=== PATIENT | female | born 1945 | race Caucasian/White ===

== ENCOUNTER → 2019-12-08 11:09 | Outpatient (BNVA) | payer MEDICARE, OTHER, SELFPAY | PROVIDERS: Family Provider Family Medicine; PCP Family Medicine; Visit Provider Nurse Practitioner Family | DX: N30.80 Other cystitis without hematuria (principal) | CPT/HCPCS: 80053; 81001; 87077; 87086; 87186 ==

== ENCOUNTER 2020-06-07 08:21 | Outpatient (CLI) | payer MEDICARE, OTHER, SELFPAY ==
--- NOTE | 2020-06-07 08:30 | XR_ITS ---
WS: [id number] KUB, AP view, 06/07/2020 Clinical Data: N20.1 - Calculus of ureter Comparison: KUB, 04/22/2016. Findings: No abnormal intraabdominal masses or calcifications are seen. There is no dilatated small bowel or ev idence of obstruction. Fecal material obscures detail over the kidneys and in the pelvis. There are clips in the right upper quadrant from a cholecystectomy. The patient has had lower pelvic surgery with surgical clips. XR/XR KUB [id number] Impression: Negative KUB.
== END 2020-06-07 08:22 | disposition home or self-care (01) ==
PROVIDERS: PCP Family Medicine; Visit Provider Urology
DX: N20.1 Calculus of ureter (principal)
CPT/HCPCS: 74018

== ENCOUNTER 2020-08-07 10:40 | Outpatient (CLI) | payer MEDICARE, OTHER, SELFPAY ==
[2020-08-07 11:06] LABS: Basophils # 0.1 10^3/uL (0.0-0.1); Basophils % 0.9 %; Eosinophils # 0.7 10^3/uL (0.0-0.8); Eosinophils % 7.8 %; Hematocrit 43.4 % (37.0-47.0); Hemoglobin 14.5 g/dL (11.5-15.3); Lymphocytes # 1.8 10^3/uL (0.8-4.8); Lymphocytes % 19.9 %; Mean Corpuscular HGB Conc 33.4 g/dL (30.0-36.0); Mean Corpuscular Hemoglobin 29.2 pg (28.0-34.0); Mean Corpuscular Volume 87.5 fL (81-99); Mean Platelet Volume 10.2 fL (7.4-10.4); Monocytes # 0.5 10^3/uL (0.2-0.9); Monocytes % 5.9 %; Neutrophils # 5.97 10^3/uL (1.8-7.7); Nucleated Red Blood Cells % 0 %; Platelet Count 304 10^3/cmm (130-400); Red Blood Count 4.96 10^6/uL (4.1-5.3); Red Cell Distribution Width 14.1 % (12.1-15.1); White Blood Count 9.2 10^3/uL (4.0-10.0)
[2020-08-07 11:25] LABS: Alanine Aminotransferase 28 U/L (0-33); Albumin Level 4.3 g/dL (3.5-5.2); Alkaline Phosphatase 69 IU/L (35-105); Anion Gap 14.7 (5-19); Aspartate Amino Transferase 18 U/L (0-32); Blood Urea Nitrogen 17 mg/dL (8-23); Calcium 8.5 mg/dL (8.5-10.5); Carbon Dioxide 26 mmol/L (22-29); Chloride 100 mmol/L (98-107); Globulin 2.9 g/dL (1.3-4.6); Glucose 142 mg/dL (65-115); Osmolality Calculated 288 mOsm/kg (285-295); Potassium 3.7 mmol/L (3.5-5.1); Sodium 137 mmol/L (136-145); Total Bilirubin 0.7 mg/dL (0.15-1.2); Total Protein 7.2 g/dL (6.6-8.7)
== END 2020-08-07 10:41 | disposition home or self-care (01) ==
LOC: LAB 10:44
PROVIDERS: PCP Family Medicine; Visit Provider Family Medicine
DX: D72.829 Elevated white blood cell count, unspecified (principal); I10 Essential (primary) hypertension
CPT/HCPCS: 36415; 80053; 85025

== ENCOUNTER 2020-10-03 09:29 | Outpatient (CLI) | payer MEDICARE, OTHER, SELFPAY ==
--- NOTE | 2020-10-03 09:30 | XR_ITS ---
WS: [id number] KUB, AP view, 10/03/2020 Clinical Data: UROLITHIASIS Comparison: KUB, 06/07/2020 Findings: No abnormal intraabdominal masses or calcifications are seen. There is no dilatated small bowel or ev idence of obstruction. There are phleboliths in the true pelvis. Colon gas and fecal material obscure detail over the kidney s. There are clips in the right upper quadrant from a cholecystectomy. There are surgical clips in th e pelvis from a hernia repair. XR/XR KUB [id number] Impression: Negative KUB.
== END 2020-10-03 09:30 | disposition home or self-care (01) ==
PROVIDERS: PCP Family Medicine; Visit Provider Urology
DX: N20.2 Calculus of kidney with calculus of ureter (principal)
CPT/HCPCS: 74018; 81003; 87077; 87086; 87184

== ENCOUNTER 2020-12-24 06:19 | Emergency (ER) | payer MEDICARE, OTHER, SELFPAY ==
[2020-12-24 06:24] VITALS: BP 162/78; PULSE 69; RESP 18; TEMP 36.9; O2SAT 97; BMI 35.3
[2020-12-24 07:01] VITALS: BP 154/57; PULSE 70; RESP 18; TEMP 36.8; O2SAT 95
--- NOTE | 2020-12-24 07:27 | ED_ITS ---
HPI - GI Bleed General: Chief complaint: GI Bleed Stated complaint: BLACK STOOLS Time Seen by Provider: 12/24/20 06:24 Source: patient Mode of arrival: ambulatory Limitations: no limitations History of Present Illness: HPI Narrative: 75 year old with greenish / black stools for 1 week, becoming more watery over the last few days, No fever hx of diverticulosis Had similar symptoms last year and was treated for an infection No sick contacts or recent travel not on anticoagulation. No rectal pain. MD complaint: melena Onset (ago): day(s) Pain Consistency: intermittent Severity: moderate Context: history of GI bleed Associated symptoms: Reports abdominal pain, poor appetite and other (diarrrhea); Denies chills, easy bruising, fever(s), headache(s), nausea or rash Treatments Prior to Arrival: none Review of Systems General: Reports: 10 or more systems reviewed and unremarkable except in HPI and below Const: Reports: change in appetite and fatigue; Denies: fever(s), chills or body aches ENMT: Denies: throat pain, uvular edema or odynophagia Card: Denies: chest pain, palpitations or irregular heart rhythm Resp: Denies: dyspnea or productive cough GI: Reports: abdominal pain, heartburn, diarrhea, GI cramping and melena; Denies: nausea, pain on defecation or rectal pain : Denies: flank pain, difficulty voiding or dysuria Musc: Denies: neck pain, back pain or extremity pain Skin/Breast: Denies: rash or pruritus Neuro: Denies: headache(s) or numbness in extremities Javier/Lymph: Denies: easy bruising or easy bleeding PFSH ED PFSH: Medical History Cystitis cystica Diabetes Left ureteral calculus Urolithiasis Surgical History Hx of appendectomy Hx of cholecystectomy Hx of hysterectomy Hx of neck surgery Status post extracorporeal shock wave therapy Social History Smoking and tobacco status: never smoked Alcohol intake: never Adopted: Yes Caregiver/support person: No Lives independently: No Household members: spouse Marital status: Current occupational status: retired History of recent travel: No Current gender identity: Female Physical Exam Const: COMMON NORMALS: no acute distress, patient oriented x3, healthy appearing, alert and well nourished GENERAL APPEARANCE: cooperative, comfortable, well kempt and well developed; not in distress and not anxious ORIENTATION/CONSCIOUSNESS: Yes oriented to person, Yes oriented to place and Yes oriented to time HENMT: COMMON NORMALS: normocephalic and atraumatic HEAD & SCALP: normocephalic and atraumatic FACE & SINUS: normal facial exam and face symmetric THROAT: no uvular edema Eye: COMMON NORMALS: Equal, round and reactive pupils present, EOMs intact bilaterally, conjunctivae normal and no scleral icterus CONJUNCTIVA: Yes conjunctivae normal PUPIL: Yes Equal, round and reactive pupils present Lymph: LYMPHATIC: no lymphadenopathy noted Resp: COMMON NORMALS: normal respiratory effort, No retractions and No use of accessory muscles EFFORT & INSPECTION: Yes able to speak in complete sentences GI: COMMON NORMALS: Normal to inspection, nondistended, normoactive bowel sounds present, Soft to palpation and non-tender AUSCULTATION: Yes Hyperactive bowel sounds present PALPATION: Yes Soft to palpation : COMMON NORMALS: Yes no CVA tenderness and Yes normal external appearance BLADDER/KIDNEY EXAM: Yes no CVA tenderness Back/Pelvis: COMMON NORMALS: no CVA tenderness Extremity: COMMON NORMALS: normal to inspection, full ROM and capillary refill normal Neuro: COMMON NORMALS: patient oriented x3 SENSORIUM/ORIENTATION: Yes alert, Yes oriented to person, Yes oriented to place and Yes oriented to time Psych: APPEARANCE: Yes well kempt Skin: COMMON NORMALS: no rashes or lesions noted, turgor normal and no jaundice GENERAL SKIN EXAM: no rashes or lesions noted and turgor normal Course Vital Signs: Vital signs: Vital Signs Temperature 98.7 F 12/24/20 09:22 Pulse Rate 72 12/24/20 09:22 Respiratory Rate 18 12/24/20 09:22 Blood Pressure 147/68 12/24/20 09:22 Pulse Oximetry 96 12/24/20 09:22 MDM - GI Bleed MDM Narrative: Medical decision making narrative: 75 year old with diarrhea, Stool sample visualized- green, watery, not melenic, occult blood positive GI panel sent hx of diverticulitisl; will treat empirically with Augmentin No significant tenderness on exam; labs and vitals otherwise stable, so no further imaging is necessary at this time. UA is also suggestive of acute infection- sent for culture hgb stable at 13.9; Followup with PCP in 2 days return precautions. Differential Diagnosis: GI bleed differential diagnosis: Likely infectious diarrhea, gastritis, Upper gastrointestinal hemorrhage, Lower gastrointestinal hemorrhage, hematochezia and melena Medical Records: Attestation: I reviewed the patient's medical records. Lab Data: Attestation: I reviewed the patient's lab results. Labs: Lab Results 12/24/20 12/24/20 12/24/20 07:49 07:49 07:49 WBC 10.9 10^3/uL H 10 ^3/uL (4.0-10.0) RBC 4.81 10^6/uL 10^6 /uL (4.1-5.3) Hgb 13.9 g/dL g/dL (11.5-15.3) Hct 43.0 % % (37.0-47.0) MCV 89.4 fl fl (81-99) MCH 28.9 pg pg (28.0-34.0) MCHC 32.3 g/dL g/dL (30.0-36.0) RDW 13.3 % % (12.1-15.1) Plt Count 366 10^3/cmm 10^3 /cmm (130-400) MPV 10.3 fL fL (7.4-10.4) Neut % (Auto) 73.2 % % Lymph % (Auto) 11.9 % % Mellette % (Auto) 5.8 % % Eos % (Auto) 8.1 % % Baso % (Auto) 0.6 % % Neut # (Auto) 8.00 10^3/uL H 10 ^3/uL (1.8-7.7) Lymph # (Auto) 1.3 10^3/uL 10^3/ uL (0.8-4.8) Mellette # (Auto) 0.6 10^3/uL 10^3/ uL (0.2-0.9) Eos # (Auto) 0.9 10^3/uL H 10^ 3/uL (0.0-0.8) Baso # (Auto) 0.1 10^3/uL 10^3/ uL (0.0-0.1) Nucleated RBC % (a uto) 0 % % Nucleated RBCs # 0.0 /100WBC /100W BC PT 13.40 SECONDS SEC ONDS (12.1-14.9) INR 0.99 (0.8-1.2) Sodium 142 mmol/L mmol/L (136-145) Potassium 3.4 mmol/L L mmol /L (3.5-5.1) Chloride 103 mmol/L mmol/L (98-107) Carbon Dioxide 28 mmol/L mmol/L (22-29) Anion Gap 14.4 (5-19) BUN 18 mg/dL mg/dL (8-23) Creatinine 0.4 mg/dL L mg/dL (0.5-0.9) GFR Calculation Not Reportable Glucose 188 mg/dL H mg/dL (65-115) Calculated Osmolal ity 301 mOsm/kg H mOs m/kg (285-295) Lactic Acid Calcium 9.0 mg/dL mg/dL (8.5-10.5) Total Bilirubin 0.5 mg/dL mg/dL (0.15-1.2) AST 21 U/L U/L (0-32) ALT 29 U/L U/L (0-33) Alkaline Phosphata se 66 IU/L IU/L (35-105) Total Protein 6.8 g/dL g/dL (6.6-8.7) Albumin 4.1 g/dL g/dL (3.5-5.2) Globulin 2.7 g/dL g/dL (1.3-4.6) Urine Color Urine Appearance Urine pH Ur Specific Gravit y Urine Protein Urine Glucose (UA) Urine Ketones Urine Blood Urine Nitrate Urine Bilirubin Urine Urobilinogen Ur Leukocyte Lori ase Urine RBC Urine WBC Ur Squamous Epith Cells Amorphous Sediment Urine Bacteria Urine Mucus 12/24/20 12/24/20 07:49 08:30 WBC RBC Hgb Hct MCV MCH MCHC RDW Plt Count MPV Neut % (Auto) Lymph % (Auto) Mellette % (Auto) Eos % (Auto) Baso % (Auto) Neut # (Auto) Lymph # (Auto) Mellette # (Auto) Eos # (Auto) Baso # (Auto) Nucleated RBC % (a uto) Nucleated RBCs # PT INR Sodium Potassium Chloride Carbon Dioxide Anion Gap BUN Creatinine GFR Calculation Glucose Calculated Osmolal ity Lactic Acid 1.4 mmol/L mmol/L (0.5-2.2) Calcium Total Bilirubin AST ALT Alkaline Phosphata se Total Protein Albumin Globulin Urine Color Yellow (Yellow) Urine Appearance Hazy A (CLEAR) Urine pH 6 (5-7) Ur Specific Gravit y 1.020 (1.005-1.030) Urine Protein Neg (Negative) Urine Glucose (UA) Norm (Normal) Urine Ketones Negative (Negative) Urine Blood 3+ H (Negative) Urine Nitrate Positive H (Negative) Urine Bilirubin Neg (Negative) Urine Urobilinogen Norm mg/dL mg/dL (Negative) Ur Leukocyte Lori ase 1+ H (Negative) Urine RBC 25-40 /hpf H /hpf (0-2) Urine WBC 25-40 /hpf H /hpf (0-5) Ur Squamous Epith Cells Rare /hpf /hpf (0-5) Amorphous Sediment Not Reportable Urine Bacteria 4+ /hpf H /hpf (NONE) Urine Mucus 1+ /hpf /hpf Discharge Plan Discharge Patient Disposition: Home Clinical Impression: Colitis, acute, Occult blood positive stool, History of diverticulosis Diarrhea Qualifiers: Diarrhea type: presumed infectious Qualified Code(s): R19.7 - Diarrhea, unspecified Condition: Stable Prescriptions: New Augmentin 875-125 mg tablet 1 tab PO BID 7 Days Qty: 14 RF: 0 No Action furosemide 20 mg tablet 20 mg PO DAILY PRN (Reason: edema) RF: 0 indomethacin 25 mg capsule 25 mg PO BID PRNRF: 0 cyclobenzaprine 10 mg tablet 10 mg PO TID PRNRF: 0 glimepiride 2 mg tablet 2 mg PO DAILY RF: 0 metformin 500 mg tablet 500 mg PO DAILY RF: 0 potassium chloride 10 mEq tablet,ER particles/crystals 10 meq PO DAILY RF: 0 triamterene-hydrochlorothiazid 37.5-25 mg capsule 1 cap PO DAILY RF: 0 Complete Multivitamin Tablet 1 tab PO DAILY RF: 0 levothyroxine 150 mcg capsule 150 mcg PO DAILY RF: 0 gabapentin 300 mg capsule 600 mg PO BID RF: 0 fluticasone propionate [Children's Flonase Allergy Rlf] 50 mcg/actuation spray,suspension 1 spray INTRANASAL DAILY RF: 0 ibuprofen [IBU] 600 mg tablet 600 mg PO DAILY RF: 0 ascorbic acid (vitamin C) 500 mg capsule 1,000 mg PO DAILY RF: 0 methenamine hippurate 1 gram tablet 1 gm PO BID Qty: 180 RF: 3 Discharge Orders: Discharge ED (Routine); Ordered 12/24/20 Ordered By: Kelly Tatum Referrals: Pamela Mclean MD [Primary Care Provider] - Discharge Diet: Advance as tolerated Discharge Activity: Increase activity as tolerated Patient Instructions: Infectious Colitis (ED) Activity Restrictions/Additional Instructions: Drink plenty of fluids, rest, call to schedule follow-up appoint with your primary care doctor in the next 2 to 3 days for recheck. Return immediately to the ER if you develop heavy bleeding, more frequent black stools, dizziness, weakness, fever, worsening abdominal pain, vomiting, or any other concerning changes. 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
[2020-12-24 07:59] LABS: Basophils # 0.1 10^3/uL (0.0-0.1); Basophils % 0.6 %; Eosinophils # 0.9 10^3/uL (0.0-0.8); Eosinophils % 8.1 %; Hemoglobin 13.9 g/dL (11.5-15.3); Lymphocytes # 1.3 10^3/uL (0.8-4.8); Lymphocytes % 11.9 %; Mean Corpuscular HGB Conc 32.3 g/dL (30.0-36.0); Mean Corpuscular Hemoglobin 28.9 pg (28.0-34.0); Mean Corpuscular Volume 89.4 fl (81-99); Mean Platelet Volume 10.3 fL (7.4-10.4); Monocytes # 0.6 10^3/uL (0.2-0.9); Monocytes % 5.8 %; Neutrophils % 73.2 %; Nucleated Red Blood Cells % 0 %; Platelet Count 366 10^3/cmm (130-400); Red Blood Count 4.81 10^6/uL (4.1-5.3); Red Cell Distribution Width 13.3 % (12.1-15.1); White Blood Count 10.9 10^3/uL (4.0-10.0)
[2020-12-24 08:15] VITALS: BP 146/65; PULSE 65; RESP 17; O2SAT 97
[2020-12-24 08:15] LABS: INR 0.99 (0.8-1.2)
[2020-12-24 08:18] LABS: Lactic Sepsis W/Reflex 1.4 mmol/L (0.5-2.2)
[2020-12-24 08:19] LABS: Alanine Aminotransferase 29 U/L (0-33); Albumin Level 4.1 g/dL (3.5-5.2); Alkaline Phosphatase 66 IU/L (35-105); Aspartate Amino Transferase 21 U/L (0-32); Blood Urea Nitrogen 18 mg/dL (8-23); Carbon Dioxide 28 mmol/L (22-29); Chloride 103 mmol/L (98-107); Globulin 2.7 g/dL (1.3-4.6); Glucose 188 mg/dL (65-115); Osmolality Calculated 301 mOsm/kg (285-295); Sodium 142 mmol/L (136-145); Total Bilirubin 0.5 mg/dL (0.15-1.2); Total Protein 6.8 g/dL (6.6-8.7)
[2020-12-24 08:26] LABS: Anion Gap 14.4 (5-19); Potassium 3.4 mmol/L (3.5-5.1)
[2020-12-24 09:04] LABS: Blood Urine 3+ (Negative); Glucose Urine UA Norm (Normal); Ketones Urine Negative (Negative); Protein Urine Neg (Negative); Urine Appearance Hazy (CLEAR); Urine Color Yellow (Yellow); pH Urine 6 (5-7)
[2020-12-24 09:05] LABS: Add Urine Microscopic? YES; Bilirubin Urine Neg (Negative); Leukocyte Esterase Urine 1+ (Negative); Nitrate Urine Positive (Negative); RBC Urine 25-40 /hpf (0-2); Urobilinogen Urine Norm (Negative)
[2020-12-24 09:06] LABS: Add Urine Culture? Yes; Bacteria Urine 4+ /hpf; Mucus Urine 1+ /hpf; Squamous Epithelial Cell Urine RARE /hpf (0-5); WBC Urine 25-40 /hpf (0-5)
[2020-12-24 09:22] VITALS: BP 147/68; PULSE 72; RESP 18; TEMP 37.1; O2SAT 96
== END 2020-12-24 09:25 | disposition home or self-care (01) ==
PROVIDERS: Emergency Provider Family Medicine; PCP Family Medicine
DX: K52.9 Noninfective gastroenteritis and colitis, unspecified (principal); R19.5 Other fecal abnormalities; E11.9 Type 2 diabetes mellitus without complications; Z79.84 Long term (current) use of oral hypoglycemic drugs
CPT/HCPCS: 80053; 81001; 82274; 83605; 85025; 85610; 87077; 87086; 87186; 87506; 99283

== ENCOUNTER 2021-01-18 10:00 | Outpatient (CLI) | payer MEDICARE, OTHER, SELFPAY ==
--- NOTE | 2021-01-18 10:30 | FL_ITS ---
WS: [id number] MODIFIED BARIUM SWALLOW TECHNIQUE: Modified barium swallow with speech therapy using multiple consistencies. FLUOROSCOPY TIME: 1.5 minutes. CLINICAL INFORMATION: Dysphagia COMPARISON: None. FINDINGS: Multiple consistencies utilized. No evidence of aspiration or penetration. No difficulties with bariu m tablet. Prior postoperative changes ACDF C5-C7 with corpectomy. FL/FL barium swallow modifd [id number] IMPRESSION: Normal barium swallow
== END 2021-01-18 10:01 | disposition home or self-care (01) ==
LOC: RAD 10:04
PROVIDERS: PCP Family Medicine; Visit Provider Nurse Practitioner Family
DX: R13.10 Dysphagia, unspecified (principal)
CPT/HCPCS: 74230; 92611

== ENCOUNTER → 2021-02-19 08:16 | Outpatient (BNVA) | payer MEDICARE, OTHER, SELFPAY | PROVIDERS: PCP Family Medicine; Visit Provider Internal Medicine | DX: E11.65 Type 2 diabetes mellitus with hyperglycemia (principal); E11.40 Type 2 diabetes mellitus with diabetic neuropathy, unspecified; E11.21 Type 2 diabetes mellitus with diabetic nephropathy; R19.7 Diarrhea, unspecified; E03.9 Hypothyroidism, unspecified; E16.2 Hypoglycemia, unspecified; R10.9 Unspecified abdominal pain; Z79.84 Long term (current) use of oral hypoglycemic drugs | CPT/HCPCS: 99204 ==

== ENCOUNTER 2021-02-20 11:34 | Outpatient (CLI) | payer MEDICARE, OTHER, SELFPAY ==
--- NOTE | 2021-02-20 11:58 | CT_ITS ---
WS: [id number] Exam: CT abdomen pelvis w con* [id number] Date/Time of Exam: 02/20/2021 12:52 PM Reason For Exam: CHRONIC DIARRHEA, ABDOMINAL PAIN DLP: 1146.[address] scans at [facility] use at least one of these dose optimization techniques: automated e xposure control; mA and/or kV adjustment per patient size (includes targeted exams where dose is matc hed to clinical indication); or iterative reconstruction. Lower lung zones are clear. Hepatic steatosis noted. The gallbladder is surgically absent. Small hiat al hernia. The stomach is otherwise unremarkable. The spleen and pancreas appear normal. The abdomina l aorta is normal in caliber. Portal vein and IVC are patent. There is right hydroureteronephrosis wi th dilatation of the right ureter into the pelvis. There is also cortical scarring and calcification of the anterior right kidney. The left kidney contains several small cysts. Normal adrenal glands. Sm all bowel loops are not dilated. There is colonic diverticulosis but no sign of acute diverticulitis. No sign of acute appendix. Questionable calcification at the right UVJ that may represent a retained stone. The urinary bladder is otherwise unremarkable. No destructive bone lesions. Degenerative scott ges of the spine. CT/CT abdomen pelvis w con* [id number] IMPRESSION: 1. Right-sided hydroureteronephrosis with dilatation of almost complete length of the right ureter. Questionable calcification at the right UVJ that may repre sent a retained stone. There is edema and mild perirenal stranding about the ri ght kidney. 2. Diverticulosis of the sigmoid and left colon. No sign of acute diverticuliti s. 3. Hepatic steatosis. Several small right renal cysts were noted.
[2021-02-20] MEDS: iohexol 300 mg/mL 100 mL Btl IV (16:28)
[2021-02-20] MEDS: iohexol 300 mg/mL 50 mL Btl PO (16:29)
== END 2021-02-20 11:35 | disposition home or self-care (01) ==
PROVIDERS: PCP Family Medicine; Visit Provider Family Medicine
DX: K52.9 Noninfective gastroenteritis and colitis, unspecified (principal); R10.9 Unspecified abdominal pain; N13.30 Unspecified hydronephrosis; K57.30 Diverticulosis of large intestine without perforation or abscess without bleeding; K76.0 Fatty (change of) liver, not elsewhere classified; Q61.02 Congenital multiple renal cysts
CPT/HCPCS: 74177; Q9967

== ENCOUNTER 2021-02-21 14:55 | Outpatient (CLI) | payer MEDICARE, OTHER, SELFPAY ==
--- NOTE | 2021-02-21 15:02 | XRR_ITS ---
PROCEDURE INFORMATION: Exam: XR Abdomen Exam date and time: 02/21/2021 3:02 PM Age: 75 years old Clinical indication: Condition or disease; Kidney or ureter condition; Calculus (stone) in ureter; Prior surgery; Surgery type: Gb; Patient HX: History--bladder infection, stone in right ureter; Additional info: Stones, kub ozh 02/21/21 @ 3:00 pm appt to follow TECHNIQUE: Imaging protocol: XR of the abdomen. Views: Frontal supine view of the abdomen. 1 View. COMPARISON: CT abdomen pelvis w con* [id number] 02/20/2021 1:03 PM FINDINGS: Gastrointestinal tract: Contrast density in the large bowel. No dilated bowel loops. Intraperitoneal space: Negative for pneumoperitoneum. Right upper quadrant surgical clips. Multiple calcifications in the pelvis are present and nonspecific. Organs: There may be a small round calcium density in the midline of the lower pelvis near the area of the prior right distal ureteral stone. Vasculature: Scattered atherosclerosis. Bones/joints: Diffuse spondyloarthropathy of lumbar spine. XR/XR KUB [id number] IMPRESSION: Uncertain if right distal ureter stone is visible radiographically.
== END 2021-02-21 14:56 | disposition home or self-care (01) ==
LOC: RAD 14:59
PROVIDERS: PCP Family Medicine; Visit Provider Urology
DX: N20.2 Calculus of kidney with calculus of ureter (principal)
CPT/HCPCS: 74018; 81003

== ENCOUNTER → 2021-03-07 13:30 | Outpatient (BNVA) | payer MEDICARE, OTHER, SELFPAY | PROVIDERS: PCP Family Medicine; Visit Provider Internal Medicine | DX: E11.40 Type 2 diabetes mellitus with diabetic neuropathy, unspecified (principal); E11.65 Type 2 diabetes mellitus with hyperglycemia; E11.21 Type 2 diabetes mellitus with diabetic nephropathy; E16.2 Hypoglycemia, unspecified; E03.9 Hypothyroidism, unspecified; R19.7 Diarrhea, unspecified; Z79.84 Long term (current) use of oral hypoglycemic drugs | CPT/HCPCS: 99214 ==

== ENCOUNTER 2021-03-21 10:06 | Outpatient (CLI) | payer MEDICARE, OTHER, SELFPAY ==
--- NOTE | 2021-03-21 10:00 | XR_ITS ---
WS: [id number] Exam: XR KUB [id number] Date/Time of Exam: 03/21/2021 10:22 AM Reason For Exam: UROLITHIASIS Comparison 02/21/2021. No bowel obstruction or free air. No obvious calcifications seen in the region of the kidneys. Signs of prior cholecystectomy. Signs of previous pelvic surgery. No sign of organ enlargement. Degenerativ e changes of the spine and pelvis. XR/XR KUB [id number] IMPRESSION: 1. No acute abdominal finding.
== END 2021-03-21 10:07 | disposition home or self-care (01) ==
PROVIDERS: PCP Family Medicine; Visit Provider Urology
DX: N20.9 Urinary calculus, unspecified (principal)
CPT/HCPCS: 74018; 81003

== ENCOUNTER → 2021-06-11 13:40 | Outpatient (BNVA) | payer MEDICARE, OTHER, SELFPAY | PROVIDERS: PCP Family Medicine; Visit Provider Urology | DX: N30.80 Other cystitis without hematuria (principal) | CPT/HCPCS: 81003; 87077; 87086; 87184 ==

== ENCOUNTER → 2021-06-19 14:07 | Outpatient (BNVA) | payer MEDICARE, OTHER, SELFPAY | PROVIDERS: PCP Family Medicine; Visit Provider Internal Medicine | DX: E11.65 Type 2 diabetes mellitus with hyperglycemia (principal); E11.40 Type 2 diabetes mellitus with diabetic neuropathy, unspecified; E11.21 Type 2 diabetes mellitus with diabetic nephropathy; E11.649 Type 2 diabetes mellitus with hypoglycemia without coma; E03.9 Hypothyroidism, unspecified; Z79.899 Other long term (current) drug therapy; Z79.84 Long term (current) use of oral hypoglycemic drugs | CPT/HCPCS: 99214 ==

== ENCOUNTER 2021-06-26 10:22 | Outpatient (CLI) | payer MEDICARE, OTHER, SELFPAY ==
--- NOTE | 2021-06-26 10:33 | XR_ITS ---
WS: [id number] Right hip, AP and frog-leg views, 06/26/2021 Clinical Data: injury Comparison: Pelvis and right hip, 11/20/2020. Findings: No fractures or dislocations are seen. The right hip joint shows mild narrowing with a small right ac etabular lip. There is no fragmentation of the right femoral head.. The soft tissues are not remarkab le. The adjacent pelvis is normal. There are clips overlying the pubic symphysis probably from inguinal hernia surgery. XR/XR hip RT 2-3V wo/w pel* [id number] Impression: Mild osteoarthritis of the right hip. Tonnis classification: grade 1: sclerosis of femoral head and acetabulum or sli ght joint space narrowing or slight lipping at joint margins
--- NOTE | 2021-06-26 10:33 | XR_ITS ---
WS: [id number] Lumbar spine, 3 views, 06/26/2021 Clinical Data: Injury Comparison: Lumbar spine, 08/28/2016. Findings: No compression fractures are seen. There is degenerative disc narrowing at L3-L4. There is minimal an terior osteophyte formation from L1 through L5. There is a subluxation 0.3 cm of L4 on L5. The S1 saad tebral body has the appearance of an L6 vertebral body. The transverse processes and SI joints are no rmal. There are calcifications in the wall of the abdominal aorta but no aneurysm. There are clips from ing uinal hernia surgery in the pelvis. XR/XR lumbar spine 2-3V* [id number] Impression: 1. Subluxation of L4 3 on L4 of 0.3 cm. 2. Degenerative disc narrowing at L3-L4 with small osteophytes L1-L5.
[2021-06-26 13:03] LABS: Cholesterol 208 mg/dL (0-200); Free T4 Free Thyroxine 1.12 ng/dL (0.82-1.77); HDL Cholesterol 40 mg/dL (60-100); LDL Cholesterol Calculated 108 mg/dL (50-129); Thyroid Stimulating Hormone 6.29 uIU/mL (0.27-4.20); Triglycerides 298 mg/dL (0-150)
[2021-06-26 13:05] LABS: Calcium 8.6 mg/dL (8.5-10.5)
[2021-06-26 13:12] LABS: Parathyroid Hormone 23.2 pg/mL (15-65)
== END 2021-06-26 10:23 | disposition home or self-care (01) ==
LOC: RAD 10:25
PROVIDERS: PCP Family Medicine; Visit Provider Internal Medicine
DX: E11.649 Type 2 diabetes mellitus with hypoglycemia without coma (principal); E03.9 Hypothyroidism, unspecified; S29.9XXA Unspecified injury of thorax, initial encounter; M48.02 Spinal stenosis, cervical region; M25.78 Osteophyte, vertebrae; M16.11 Unilateral primary osteoarthritis, right hip
CPT/HCPCS: 36415; 72100; 73502; 80061; 82310; 83970; 84439; 84443

== ENCOUNTER 2021-07-14 14:56 | Outpatient (CLI) | payer MEDICARE, OTHER, SELFPAY ==
--- NOTE | 2021-07-14 15:30 | MR_ITS ---
WS: [id number] MRI LUMBAR SPINE NONCONTRAST HISTORY: Injury with Subluxation of L4-5 COMPARISON: Lumbar spine radiograph 06/26/2021. Prior MRI 09/18/2011. TECHNIQUE: Sagittal and axial multisequence imaging is submitted. Postsurgical anterior cervical fusion changes in the mid to lower cervical spine. Very mild increase in the lumbar lordosis. 2 mm anterolisthesis of L3. L2 hemangioma is stable. No ac khadra marrow edema. Mild disc desiccation throughout the lumbar spine. Conus terminates normally at L1. T12-L1: Moderate annular disc bulging without stenosis. L1-L2: Mild annular disc bulging. No stenosis. Mild bilateral facet joint arthritis. L2-L3: Moderate annular disc bulge. There is also moderate osteophytic ridging contributing to the en croachment upon the ventral thecal sac. Mild central, bilateral subarticular recess and foraminal niko nosis. Mild contact on the traversing L3 nerve roots, RIGHT greater than LEFT. Moderate bilateral fac et arthritis. L3-L4: Mild annular disc bulging. Proximal LEFT foraminal disc protrusion with no contact on the nerv e roots. Moderate bilateral facet joint arthritis. L4-L5: Mild annular disc bulge and mild facet arthritis. L5-S1: Small central disc protrusion and osteophytic ridging. Mild bilateral foraminal narrowing. 10 mm LEFT renal cyst. MR/MR lumbar spine wo con* [id number] IMPRESSION: 1. No acute fracture or marrow edema. 2. No high-grade central or foraminal stenosis. 3. L3 anterolisthesis by 2 mm. 4. Mild central, bilateral subarticular recess and foraminal stenosis at L2-3 with slightly greater contact on the traversing RIGHT L3 nerve root. Moderate b ilateral facet joint arthritis at L2-3. 5. Proximal LEFT foraminal disc protrusion at L3-4 with no contact on the nerv e roots. 6. Moderate bilateral facet joint arthritis at L1-2, L3-4 and mild at L4-5 and L5-S1.
== END 2021-07-14 14:57 | disposition home or self-care (01) ==
LOC: RAD 14:56
PROVIDERS: PCP Family Medicine; Visit Provider Nurse Practitioner Family
DX: S33.140A Subluxation of L4/L5 lumbar vertebra, initial encounter (principal); M51.36 Other intervertebral disc degeneration, lumbar region; M48.061 Spinal stenosis, lumbar region without neurogenic claudication; M47.26 Other spondylosis with radiculopathy, lumbar region; M51.26 Other intervertebral disc displacement, lumbar region
CPT/HCPCS: 72148

== ENCOUNTER → 2021-07-17 14:51 | Outpatient (BNVA) | payer MEDICARE, OTHER, SELFPAY | PROVIDERS: PCP Family Medicine; Referring Provider Nurse Practitioner Family; Visit Provider Orthopaedic Surgery | DX: M48.062 Spinal stenosis, lumbar region with neurogenic claudication (principal) | CPT/HCPCS: 99204 ==

== ENCOUNTER 2021-07-20 12:51 | Outpatient (CLI) | payer MEDICARE, OTHER, SELFPAY ==
--- NOTE | 2021-07-20 13:00 | MR_ITS ---
WS: [id number] MRI BRAIN WITH AND WITHOUT CONTRAST HISTORY: Cognitive decline COMPARISON: None available. TECHNIQUE: Multiplanar imaging performed through the brain with [employer] IV. No acute infarcts are seen. Hernandez-white matter differentiation is well preserved. There are mild atrop hy is symmetric. There are very few scattered T2 and FLAIR signal hyperintensities secondary to chron ic white matter disease. No prior infarct. No susceptibility artifacts or prior lacunar infarcts. Ventricles and extra-axial spaces are normal. Clivus and pituitary gland are normal. Visualized posterior fossa and brainstem are also normal. Postcontrast images are negative for masses or vascular malformations. Dural venous sinuses are normal. Paranasal sinuses: Mild mucoperiosteal thickening in the sphenoid sinuses. Mastoid air cells: Normal. Calvarium and scalp: Normal. MR/MR head wo/w con [id number] IMPRESSION: 1. No acute infarct or hemorrhage. 2. No enhancing mass. 3. Very mild atrophy and chronic small vessel ischemic disease.
== END 2021-07-20 12:52 | disposition home or self-care (01) ==
LOC: RAD 12:52
PROVIDERS: PCP Nurse Practitioner Family; Visit Provider Nurse Practitioner Family
DX: R41.89 Other symptoms and signs involving cognitive functions and awareness (principal)
CPT/HCPCS: 70553

== ENCOUNTER 2021-08-06 06:00 | Day surgery (SDC) | payer MEDICARE, OTHER, SELFPAY ==
[2021-08-02 14:36] VITALS: BMI 34.3
[2021-08-06] VITALS (9 sets, daily range): BP systolic 126–147; BP diastolic 48–93; PULSE 66–80; RESP 16–17; TEMP 36.2–36.7; O2SAT 91–100
--- NOTE | 2021-08-06 | SCC_ITS ---
Procedure done: 1. L3/4 laminectomy with partial facetectomy 17.2 seconds of fluoroscopic guidance, for a cumulative dose of 12.21 mGy, was provided to Dr. Machuca by the radiology department. C-arm images of the lumbar spine were saved for the patient's permanent record. [facility]
--- NOTE | 2021-08-06 | XR_ITS ---
WS: [id number] INTRAOPERATIVE TECHNIQUE: 4 Spot fluoroscopic images for intraoperative purposes. FLUOROSCOPY TIME: 17.2 seconds CLINICAL INFORMATION: lumbar decompression COMPARISON: None. FINDINGS: Localization marker projected dorsally over the L3-L4 interspace. Additional localization marker proj ected over the midline L4 spinous process. XR/XR lumbar spine 2-3V* [id number] IMPRESSION: Images obtained for intraoperative purposes.
--- NOTE | 2021-08-06 06:30 | ANES.PREANE2 ---
Pre-Anesthetic Assessment Height/Weight: Height 1.5 m Weight 77.111 kg Temp Pulse Resp BP Pulse Ox 98.0 F 80 17 147/93 97 08/06/21 06:14 08/06/21 06:14 08/06/21 06:14 08/06/21 06:14 08/06/21 06:14 Preop Diagnosis: Lumbar stenosis with neurogenic claudication Operation Date: 08/06/21 07:00 Proposed Procedures p Lumbar Spine Decompression MILL INVASIVE L3/4 32389/ M48.062(Not Applicable) - Leonardo Machuca DO Familial anesthetic complications: none Was Beta Ryder taken within 24 hours: N/A Was Clonidine taken within 24 hours: N/A Social No alcohol and No tobacco Exam alert, oriented x 3, clear to auscultation bilaterally and regular rate & rhythm Airway Submandibular: within normal limits Cervical ROM: within normal limits Mallampati: Class II Dentition: full History/ROS No significant complaints Pulmonary None reported CV/HEM Hypertension cystitis Hepatic None reported GI None reported Metabolic Diabetes Mellitus and Thyroid Disease Musc/skel Osteoarthritis/DJD Lumbar stenosis Neuropsych Neuropathy Beginning of memory loss Anesthetic Plan ASA status: 2 Anesthesia: Anesthesia Evaluation and General Other: We discussed risk and benefits of general anesthesia including PONV, sore throat (sometimes severe), corneal abrasion, positioning and peripheral nerve injuries, life threatening allergic reaction, post operative ICU admission requiring prolonged intubation, stroke, heart attack, , blindness, and rare incidences of recall. Patient consents to proceed with general anesthesia. Risk of > 500 ml blood loss (7ml/kg in children): No Medications/Allergies Home Medications Medication Instructions Recorded Confirmed Last Taken Type fluticasone propionate 50 1 spray INTRANASAL DAILY 06/09/19 08/06/21 08/06/21 04:30 History mcg/actuation nasal spray,suspension (Children's Flonase Allergy Relief) gabapentin 300 mg capsule 600 mg PO BID cap 06/09/19 08/06/21 08/05/21 19:00 History levothyroxine 150 mcg capsule 150 mcg PO DAILY 06/09/19 08/06/21 08/05/21 05:00 History potassium chloride 10 mEq 10 meq PO DAILY 06/09/19 08/06/21 08/05/21 07:00 History tablet,extended release(part/cryst) furosemide 20 mg tablet 20 mg PO DAILY PRN 10/03/20 08/02/21 06/06/21 History blood sugar diagnostic (Accu-Chek #100 ea 06/21/21 07/17/21 Unknown Rx Samira Plus test strp) sitagliptin 100 mg tablet (Januvia) 100 mg PO DAILY #90 tab 06/21/21 08/06/21 08/05/21 07:00 Rx indomethacin 75 mg 75 mg PO TID PRN #60 cap 06/25/21 08/06/21 08/05/21 19:00 Rx capsule,extended release triamterene 37.5 1 cap PO DAILY #90 cap 07/16/21 08/06/21 08/05/21 07:00 Rx mg-hydrochlorothiazide 25 mg capsule hydrocodone 5 mg-acetaminophen 325 1 - 2 tab PO .Q4-6H #40 tab 08/06/21 Unknown Rx mg tablet Allergies Allergy/AdvReac Type Severity Reaction Status Date / Time adhesive tape Allergy ADR-Itching Verified 08/06/21 06:15 codeine Allergy ADR-Nausea Verified 08/06/21 06:15 [facility] Anesthesia Medical History Cystitis cystica Diabetes Left ureteral calculus Urolithiasis Surgical History Hx of appendectomy Hx of cholecystectomy Hx of hysterectomy Hx of neck surgery S/P LASIK surgery of both eyes Status post extracorporeal shock wave therapy Family History Father No problems noted. Mother No problems noted. Social History Smoking and tobacco status: never smoked Alcohol intake: never Adopted: Yes Caregiver/support person: No Lives independently: No Household members: spouse Marital status: Current occupational status: retired History of recent travel: No Current gender identity: Female Data Anesthesia : 08/06/21 06:35 Cardiac Studies: No Data to Display
--- NOTE | 2021-08-06 06:31 | ECG_ITS ---
[facility] Test Date: 2021-08-06 Pat Name: Clementina Saxena Department: Room: Gender: Female Saw Runner: : 1945 Requested By: Angelita Sigala Order Number: [id number] Reading MD: James Garcia M.D. Measurements Intervals [place] Rate: P: MA: QRS: QRSD: T: QT: QTc: Interpretive Statements Sinus rhythm Poor R wave progression, possible septal myocardial infarction Indeterminate axis ATYPICAL ECG WARNING: DATA QUALITY MAY AFFECT INTERPRETATION Compared to ECG 06/20/2015 15:03:13 Sinus tachycardia no longer present Electronically Signed On 08-06-2021 16:32:53 CDT by James Garcia M.D. [id number]
[2021-08-06] MEDS: sodium chloride 0.9% 1,000 ML 30 ML IV (06:42)
[2021-08-06 06:44] LABS: Glucose Point of Care 212 mg/dL (70-110)
[2021-08-06] MEDS: scopolamine 1.5 Patch 1 PATCH TRANSDERMA (06:44)
--- NOTE | 2021-08-06 06:53 | W.PM.OPSUD ---
Surgery/Procedure H&P Update DATE OF PROCEDURE: August 06, 2021 DATE H&P PERFORMED: 07/17/21 H&P UPDATE INFORMATION: I have reviewed H&P completed within last 30 days, I have examined patient prior to procedure and No changes to prior documentation PREOP DIAGNOSIS: Lumbar stenosis with neurogenic claudication PLANNED PROCEDURE: Operation Date: 08/06/21 07:00 Proposed Procedures p Lumbar Spine Decompression MILL INVASIVE L3/4 22289/ M48.062(Not Applicable) - Leonardo Machuca DO
[2021-08-06 07:09] LABS: Anion Gap 16.8 (5-19); Blood Urea Nitrogen 18 mg/dL (8-23); Calcium 9.1 mg/dL (8.5-10.5); Carbon Dioxide 27 mmol/L (22-29); Chloride 98 mmol/L (98-107); Glucose 208 mg/dL (65-115); Osmolality Calculated 294 mOsm/kg (285-295); Potassium 3.8 mmol/L (3.5-5.1); Sodium 138 mmol/L (136-145)
--- NOTE | 2021-08-06 07:58 | P.OP_ITS ---
Operative Report Date of procedure: August 06, 2021 Pre-op diagnosis: Preop Diagnosis Lumbar stenosis with neurogenic claudication Post-op diagnosis: same Procedure done: 1. L3/4 laminectomy with partial facetectomy Surgeon: Leonardo Machuca Mechanical Maintenance Worker: Shahram Peoples Mechanical Maintenance Worker: The marketing assistant manager, SYED Ramires was needed for his expertise under the microscope. He was important and necessary throughout the procedure to complete in a safe and timely manner. He assisted with patient positioning prepping and draping tissue retraction suctioning of the operative field protection of the dural sac and tissue closure Estimated blood loss (mL): 5 Procedure: 1. L3/4 laminectomy with partial facetectomy Patient is brought to the operative suite. After undergoing anesthesia they are placed in the prone position. All areas of impingement are well padded. Patient is then prepped and draped in the normal sterile fashion. A skin incision is made over the L3-4 level. This is confirmed under c-arm guidance. A series of dilators are passed and the tubular retractor is docked on the L3 lamina. A bovie is used to clear the soft tissue off the lamina and the L 3/4 facet joint. A high speed italo is then used to perform the laminectomy and take down the medial aspect of the L 3/4 facet joint. A kerrison rongeure was then used to take down the remaining lamina and smooth the edge of the laminectomy up to the point where the ligamentum flavum attaches. Attention was then brought to the medial aspect of the facet joint. The remaining medial aspect of the superior and inferior aspect of the facet joint were taken down with the kerrison from the pedicle of L3 to L 4. The facet joint had significant hypertrophy. Attention was then brought to the Ligamentum Flavum. The ligament was taken down from the lamina of L3 to L4 and out medially to the remaining facet joint. The ligament was thick. The dura was then exposed. The dura was in good repai r. The L3 nerve was then traced with a curette out the L3/4 foramen and found to be adequately decompressed. The L4 nerve was traced with a curette around the L4 pedicle. The lateral recess was opened with a kerrison helping to further decompress the L4 nerve. Wound is then irrigated copiously with saline and surgiflo is used to stop any bleeding. The tubular retractor is removed and the wound is closed with vicryl and monocryl suture. Glue is then used to protect the wound. A sterile dressing is then placed. Patient was then placed in the supine position and transferred to the PACU in stable condition. my
[2021-08-06 08:17] LABS: Glucose Point of Care 171 mg/dL (70-110)
[2021-08-06] MEDS: ondansetron 2 mg/ML SDV 2 mL 4 MG IVP (08:21)
[2021-08-06] MEDS: ondansetron 4 MG Tablet PO (09:42)
--- NOTE | 2021-08-06 14:10 | ANE.PACU2 ---
Inpatient post-anesthesia follow up: Airway intact: Yes Vital signs: Temperature 97.2 F Pulse Rate 66 Respiratory Rate 17 Blood Pressure 132/67 Pulse Oximetry 95 Oxygen Delivery Me thod Room Air Oxygen Flow Rate 2 Fraction of Inspir ed Oxygen Hydration adequate: Yes Nausea and vomiting: No Pain level: 1 Mental status: Baseline
== END 2021-08-06 09:48 | disposition home or self-care (01) ==
PROVIDERS: Anesthesiology; PCP Nurse Practitioner Family; Visit Provider Orthopaedic Surgery
PROC: (CPT 63005; principal; 2021-08-06 07:00)
DX: M48.062 Spinal stenosis, lumbar region with neurogenic claudication (principal); I10 Essential (primary) hypertension; E11.9 Type 2 diabetes mellitus without complications
CPT/HCPCS: 63047; 36415; 36416; 72100; 76000; 80048; 82962; 93005; J0330; J1100; J1170; J1200; J2370; J2405; J2704; J3010; J3490; J7030; Q0162

== ENCOUNTER → 2021-08-21 09:31 | Outpatient (BNVA) | payer MEDICARE, OTHER, SELFPAY | PROVIDERS: PCP Nurse Practitioner Family; Visit Provider Orthopaedic Surgery | DX: Z47.89 Encounter for other orthopedic aftercare (principal); Z98.890 Other specified postprocedural states | CPT/HCPCS: 99024 ==

== ENCOUNTER → 2021-09-17 08:06 | Outpatient (BNVA) | payer MEDICARE, OTHER, SELFPAY | PROVIDERS: PCP Family Medicine; Visit Provider Internal Medicine | DX: E11.65 Type 2 diabetes mellitus with hyperglycemia (principal); E11.40 Type 2 diabetes mellitus with diabetic neuropathy, unspecified; E11.21 Type 2 diabetes mellitus with diabetic nephropathy; E03.9 Hypothyroidism, unspecified; Z79.899 Other long term (current) drug therapy; Z79.84 Long term (current) use of oral hypoglycemic drugs | CPT/HCPCS: 99214 ==

== ENCOUNTER 2021-09-18 09:09 | Outpatient (CLI) | payer MEDICARE, OTHER, SELFPAY ==
--- NOTE | 2021-09-18 09:30 | XR_ITS ---
WS: [id number] XR KUB [id number] REASON FOR EXAM: Ureteral Calculus FINDINGS: No calculi are identified overlying the kidneys, ureters, or bladder. Mildly dilated small bowel loop in the central abdomen, nonspecific. No other associated findings. Degenerative spondylosis in the lumbar spine. Degenerative sacroiliitis. XR/XR KUB [id number] IMPRESSION: No urinary tract calculi are identified. Nonspecific small bowel dilatation as above.
== END 2021-09-18 09:10 | disposition home or self-care (01) ==
LOC: RAD 09:09
PROVIDERS: PCP Family Medicine; Visit Provider Urology
DX: N30.80 Other cystitis without hematuria; Z47.89 Encounter for other orthopedic aftercare; Z98.890 Other specified postprocedural states
CPT/HCPCS: 74018; 81003; 99024; 99213

== ENCOUNTER → 2021-10-30 08:30 | Outpatient (BNVA) | payer MEDICARE, OTHER, SELFPAY | PROVIDERS: Visit Provider Orthopaedic Surgery | DX: Z47.89 Encounter for other orthopedic aftercare (principal) | CPT/HCPCS: 99024 ==

== ENCOUNTER → 2021-12-17 08:16 | Outpatient (BNVA) | payer MEDICARE, OTHER, SELFPAY | PROVIDERS: PCP Family Medicine; Visit Provider Internal Medicine | DX: E11.65 Type 2 diabetes mellitus with hyperglycemia (principal); E11.40 Type 2 diabetes mellitus with diabetic neuropathy, unspecified; E11.21 Type 2 diabetes mellitus with diabetic nephropathy; E03.9 Hypothyroidism, unspecified; Z79.84 Long term (current) use of oral hypoglycemic drugs | CPT/HCPCS: 99214 ==

== ENCOUNTER 2021-12-25 12:39 | Emergency (ER) | payer MEDICARE, OTHER, SELFPAY ==
[2021-12-25 12:51] VITALS: BP 149/82; PULSE 88; RESP 16; TEMP 36.9; O2SAT 96; BMI 34.3
--- NOTE | 2021-12-25 13:18 | CTR_ITS ---
PROCEDURE INFORMATION: Exam: CT Head Without Contrast Exam date and time: 12/25/2021 1:35 PM Age: 76 years old Clinical indication: Dizziness; Other: Left side shooting pain behind ear; Additional info: Left side numbness TECHNIQUE: Imaging protocol: Computed tomography of the head without contrast. Radiation optimization: All CT scans at this facility use at least one of these dose optimization techniques: automated exposure control; mA and/or kV adjustment per patient size (includes targeted exams where dose is matched to clinical indication); or iterative reconstruction. COMPARISON: MR head wo/w con [id number] 07/20/2021 1:57 PM RADIATION DOSE METRICS: Total DLP (mGy-cm): 1073.78 FINDINGS: Brain: No acute appearing brain parenchymal abnormality. No intracranial hemorrhage. No extraaxial fluid collections. There is diffuse cerebral atrophy. Cerebral ventricles: No hydrocephalus. Paranasal sinuses: No fluid in the visualized paranasal sinuses. Mastoid air cells: The mastoid air cells are aerated. Bones/joints: No calvarial fracture. There is hyperostosis frontalis interna. Soft tissues: No acute soft tissue abnormality. CT/CT head wo con* [id number] IMPRESSION: No acute intracranial abnormality.
--- NOTE | 2021-12-25 14:15 | ED_ITS ---
HPI - General Adult General: Chief complaint: General Medical Stated complaint: left side from neck to arms numbness Time Seen by Provider: 12/25/21 13:05 History of Present Illness: Patient is a 76-year-old female comes to the ED with left facial numbness and left-sided neck pain. Symptoms started approximately an hour before arriving to the ED. She was at [facility] and turned her head to the right when she felt sharp pain on the left side of her neck that radiated down into her left shoulder and left upper back. She also developed some left side of her face numbness. She says her pain is currently mild but jumps to an 8 out of 10 if she turns her head to the right. Denies any vision changes, weakness to extremities or headache. Associated symptoms: Deny chest pain, dyspnea, headache(s), nausea, rash, palpitations or vomiting Review of Systems Const: Denies: fever(s), chills or fatigue Eyes: Denies: change in vision or eye discomfort ENMT: Denies: throat pain, odynophagia, nasal discharge or nasal congestion Card: Denies: chest pain, palpitations, edema, swelling of feet/ankles, dyspnea on exertion or orthopnea Resp: Denies: dyspnea, productive cough or non-productive cough GI: Denies: abdominal pain, nausea, vomiting, diarrhea, constipation or hematochezia : Denies: flank pain, dysuria or hematuria Musc: Reports: neck pain; Denies: back pain or extremity swelling Skin/Breast: Denies: rash or new lesions Neuro: Reports: sensory changes (Left side of face); Denies: headache(s), numbness in extremities or weakness in extremities [facility] ED PFSH: Medical History Cystitis cystica Diabetes Left ureteral calculus Urolithiasis Surgical History History of back surgery Hx of appendectomy Hx of cholecystectomy Hx of hysterectomy Hx of neck surgery S/P LASIK surgery of both eyes Status post extracorporeal shock wave therapy Family History Father No problems noted. Mother No problems noted. Social History Smoking and tobacco status: never smoked Alcohol intake: never Adopted: Yes Caregiver/support person: No Lives independently: No Household members: spouse Marital status: Current occupational status: retired History of recent travel: No Current gender identity: Female Physical Exam Const: COMMON NORMALS: patient oriented x3 and alert GENERAL APPEARANCE: cooperative and comfortable HENMT: COMMON NORMALS: normocephalic HEAD & SCALP: normocephalic MOUTH: Normal oral and palatal mucosa present THROAT: posterior oropharynx normal and uvula midline Neck/C-Spine: COMMON NORMALS: supple GENERAL: Yes normal visual inspection CERVICAL SPINE: Yes pain with cervical ROM with rotation to the right, No Cervical spine tenderness, Yes Paracervical muscle tenderness left and Yes Trapezius muscle tenderness left Resp: COMMON NORMALS: normal respiratory effort, No retractions, No use of accessory muscles and clear to auscultation bilaterally AUSCULTATION: clear to auscultation bilaterally Cardio: COMMON NORMALS: regular rate, regular rhythm, S1 normal heart sound present, S2 normal heart sound present, No gallops present (Cardio), No clicks present (Cardio), No murmurs present (Cardio) and Peripheral pulses 2+ throughout RATE: regular rate RHYTHM: regular rhythm HEART SOUNDS: S1 normal heart sound present and S2 normal heart sound present PERIPHERAL PULSES: Peripheral pulses 2+ throughout GI: COMMON NORMALS: Normal to inspection, nondistended, normoactive bowel sounds present, Soft to palpation, non-tender and no masses PALPATION: Yes Soft to palpation : COMMON NORMALS: Yes no CVA tenderness BLADDER/KIDNEY EXAM: Yes no CVA tenderness Back/Pelvis: COMMON NORMALS: no CVA tenderness Extremity: COMMON NORMALS: normal to inspection Neuro: COMMON NORMALS: patient oriented x3, CN's II-XII intact bilaterally, moves all extremities and no focal motor deficits SENSORIUM/ORIENTATION: Yes alert GAIT: Yes Normal gait present Skin: GENERAL SKIN EXAM: dry skin Course Vital Signs: Vital signs: Vital Signs Temperature 98.4 F 12/25/21 12:51 Pulse Rate 88 12/25/21 12:51 Respiratory Rate 16 12/25/21 12:51 Blood Pressure 149/82 12/25/21 12:51 Pulse Oximetry 96 12/25/21 12:51 Oxygen Delivery In thod 12/25/21 12:51 [facility] - General Adult Medical Decision Making Patient is a 76-year-old female comes to the ED with left facial numbness and left-sided neck pain. Symptoms started approximately an hour before arriving to the ED. She was at [facility] and turned her head to the right when she felt sharp pain on the left side of her neck that radiated down into her left shoulder and left upper back. She also developed some left side of her face numbness. She says her pain is currently mild but jumps to an 8 out of 10 if she turns her head to the right. Denies any vision changes, weakness to extremities or headache. Vitals are stable. Neuro exam shows no deficits. She has some pain with cervical range of motion rotating to the right. No cervical spinal tenderness. She has paracervical muscle tenderness on the left side and left trapezius muscle tenderness as well. Head CT showed no acute findings. Given patient's exam findings and history I think patient's symptoms are due to neck muscle strain. She was given a dose of Toradol and Norflex here in the ED. She was discharged home with a prescription for muscle relaxer and ibuprofen 600 mg. Follow-up with PCP within the next week for reevaluation. Patient understood and agreed with plan. Lab Data Radiology Impressions Head CT 12/25/21 13:18 IMPRESSION: No acute intracranial abnormality. Discharge Plan Discharge Patient Disposition: Home Clinical Impression: Strain of neck muscle Qualifiers: Encounter type: initial encounter Qualified Code(s): S16.1XXA - Strain of muscle, fascia and tendon at neck level, initial encounter Condition: Stable Prescriptions: New methocarbamol 750 mg tablet 750 mg PO Q8H PRN (Reason: muscle spasms and pain) Qty: 20 0RF ibuprofen 600 mg tablet 600 mg PO Q8H PRN (Reason: pain) Qty: 20 0RF No Action furosemide 20 mg tablet 20 mg PO DAILY PRN (Reason: edema) fluticasone propionate [Children's Flonase Allergy Rlf] 50 mcg/actuation spray,suspension 1 spray INTRANASAL DAILY mupirocin 2 % ointment 1 applic topical BID Qty: 22 1RF Rx Instructions: Apply to affected area until healed doxycycline hyclate 100 mg capsule 100 mg PO BID Qty: 14 0RF glimepiride 2 mg tablet 2 mg PO DAILY Qty: 90 3RF Rx Instructions: Take one tablet by mouth daily. ibuprofen 600 mg tablet 600 mg PO Q8H PRN (Reason: pain) Qty: 90 3RF potassium chloride 10 mEq tablet,ER particles/crystals 10 meq PO DAILY Qty: 90 3RF (DME) Accu-Chek Samira Plus test strp Strip See Rx Instructions .Route Qty: 100 3RF Rx Instructions: Check BS daily. triamterene-hydrochlorothiazid 37.5-25 mg capsule 1 cap PO DAILY Qty: 90 1RF levothyroxine 150 mcg capsule 150 mcg PO DAILY Qty: 90 3RF Rx Instructions: Take one tablet by mouth daily Friday thru Friday, 1/2 tablet on Friday, and skip Friday. gabapentin 300 mg capsule 600 mg PO BID Qty: 180 3RF Discharge Orders: Discharge ED (Routine); Ordered 12/25/21 Ordered By: Karri Gutierrez Referrals: Tim Granger, [Primary Care Provider] - Discharge Diet: Regular Discharge Activity: Increase activity as tolerated Patient Instructions: Cervical Strain (ED), Acute Neck Pain (ED) Activity Restrictions/Additional Instructions: Follow-up with medical provider as directed. Take medications as prescribed. Return to the ER or your medical provider if condition worsens. Please read and understand discharge instructions. Thank you for choosing [facility] for your healthcare needs today. Please realize this is an emergency room and that we are providing you with a medical screening exam and this may not be complete and all inclusive of all the testing and or work up that you may need to determine your ailment or severity of your illness. It is very important that you follow up as instructed or that you return to the Emergency Department should you have concerns or if your condition changes or worsens in any way. Coding Level of Care Code ED [employer] Treatment Plant Technician for Inna Fwmiladys Exam Comprehensive
[2021-12-25] MEDS: ketorolac 60 mg/2 mL INJ IM (14:32)
[2021-12-25] MEDS: orphenadrine 30 mg/mL Inj 2 mL 60 MG IM (14:33)
== END 2021-12-25 15:19 | disposition home or self-care (01) ==
PROVIDERS: Emergency Provider Physician Assistant; PCP Family Medicine
DX: S16.1XXA Strain of muscle, fascia and tendon at neck level, initial encounter (principal); Z79.84 Long term (current) use of oral hypoglycemic drugs; E11.9 Type 2 diabetes mellitus without complications; X58.XXXA Exposure to other specified factors, initial encounter
CPT/HCPCS: 70450; 96372; 99285; J1885; J2360

== ENCOUNTER → 2022-01-22 08:12 | Outpatient (BNVA) | payer MEDICARE, OTHER, SELFPAY | PROVIDERS: PCP Family Medicine; Visit Provider Orthopaedic Surgery | DX: M48.062 Spinal stenosis, lumbar region with neurogenic claudication | CPT/HCPCS: 99214 ==

== ENCOUNTER → 2022-02-20 15:06 | Outpatient (BNVA) | payer MEDICARE, OTHER, SELFPAY | PROVIDERS: PCP Family Medicine; Visit Provider Family Medicine | DX: E11.65 Type 2 diabetes mellitus with hyperglycemia (principal); E03.9 Hypothyroidism, unspecified; E11.40 Type 2 diabetes mellitus with diabetic neuropathy, unspecified; F03.90 Unspecified dementia, unspecified severity, without behavioral disturbance, psychotic disturbance, mood disturbance, and anxiety; E16.2 Hypoglycemia, unspecified | CPT/HCPCS: 80053; 80061; 82607; 83036; 84443; 85025 ==

== ENCOUNTER 2022-02-21 08:51 | Outpatient (CLI) | payer MEDICARE, OTHER, SELFPAY ==
--- NOTE | 2022-02-21 09:00 | MR_ITS ---
WS: [id number] MRI LUMBAR SPINE NONCONTRAST TECHNIQUE: Sagittal T1, T2 and STIR imaging. Axial T1 and T2 imaging. CLINICAL INFORMATION: increased pain previous sx COMPARISON: MRI July 14, 2021 FINDINGS: Mild lumbar curve. No acute compression. Slight anterolisthesis L3 on L4 and L4 on L5. Shallow centra l disc protrusion L2-L3. No acute compression fractures. L1-L2: Mild annular bulging. Spinal canal and foramen are patent. L2-L3: Shallow central disc protrusion with moderate central canal stenosis. Impingement traversing R IGHT greater than LEFT L3 nerve roots. Mild facet arthropathy. Mild RIGHT foraminal narrowing. This a ppears slightly progressed compared to prior examination. L3-L4: Mild annular bulging. Slight effacement of ventral thecal sac. Spinal canal and foramen are pa tent. Prior RIGHT hemilaminectomy. L4-L5: Mild annular bulging. Moderate facet arthropathy. Spinal canal and foramen are patent. L5-S1: No significant disc bulging. Spinal canal and foramen are patent. Mild facet arthropathy. Visualized pelvic bony structures: Normal. Paravertebral soft tissues: Normal. MR/MR lumbar spine wo con* [id number] IMPRESSION: 1. Mild lumbar curve. No acute compression. Slight anterolisthesis L3 on L4 is unchanged. 2. Shallow central protrusion L2-L3 with moderate central canal stenosis and i mpingement traversing RIGHT greater than LEFT L3 nerve roots appears slightly p rogressed compared to previous. 3. Interval RIGHT hemilaminectomy L3-L4. Central canal stenosis at this level has improved with no significant residual stenosis. 4. Moderate facet arthropathy L3-L4 and L4-L5. 5. No other significant interval changes.
== END 2022-02-21 08:52 | disposition home or self-care (01) ==
LOC: RAD 08:52
PROVIDERS: PCP Family Medicine; Visit Provider Orthopaedic Surgery
DX: M51.26 Other intervertebral disc displacement, lumbar region (principal); M47.816 Spondylosis without myelopathy or radiculopathy, lumbar region
CPT/HCPCS: 72148

== ENCOUNTER → 2022-03-07 09:01 | Outpatient (BNVA) | payer MEDICARE, OTHER, SELFPAY | PROVIDERS: PCP Family Medicine; Visit Provider Physician Assistant | DX: M48.062 Spinal stenosis, lumbar region with neurogenic claudication (principal); Z98.890 Other specified postprocedural states | CPT/HCPCS: 99213 ==

== ENCOUNTER → 2022-03-18 08:48 | Outpatient (BNVA) | payer MEDICARE, OTHER, SELFPAY | PROVIDERS: PCP Family Medicine; Visit Provider Internal Medicine | DX: E11.65 Type 2 diabetes mellitus with hyperglycemia (principal); E11.40 Type 2 diabetes mellitus with diabetic neuropathy, unspecified; E11.21 Type 2 diabetes mellitus with diabetic nephropathy; E03.9 Hypothyroidism, unspecified; Z79.84 Long term (current) use of oral hypoglycemic drugs; Z79.890 Hormone replacement therapy; Z87.440 Personal history of urinary (tract) infections | CPT/HCPCS: 99214 ==

== ENCOUNTER → 2022-03-21 09:01 | Outpatient (BNVA) | payer MEDICARE, OTHER, SELFPAY | PROVIDERS: PCP Family Medicine; Visit Provider Urology | DX: N30.80 Other cystitis without hematuria (principal); N20.2 Calculus of kidney with calculus of ureter | CPT/HCPCS: 81003; 99213 ==

== ENCOUNTER → 2022-04-15 09:22 | Outpatient (BNVA) | payer MEDICARE, OTHER, SELFPAY | PROVIDERS: PCP Family Medicine; Referring Provider Physician Assistant; Visit Provider Anesthesiology Pain Medicine | DX: M47.816 Spondylosis without myelopathy or radiculopathy, lumbar region (principal); M79.604 Pain in right leg; M79.605 Pain in left leg | CPT/HCPCS: 99204 ==

== ENCOUNTER → 2022-04-29 14:38 | Outpatient (BNVA) | payer MEDICARE, OTHER, SELFPAY | PROVIDERS: PCP Family Medicine; Visit Provider Anesthesiology Pain Medicine | DX: M54.16 Radiculopathy, lumbar region (principal) | CPT/HCPCS: 64493; 64494; 64495; J3490 ==

== ENCOUNTER → 2022-05-23 10:39 | Outpatient (BNVA) | payer MEDICARE, OTHER, SELFPAY | PROVIDERS: PCP Family Medicine; Visit Provider Orthopaedic Surgery | DX: M51.36 Other intervertebral disc degeneration, lumbar region (principal); M25.78 Osteophyte, vertebrae; M47.816 Spondylosis without myelopathy or radiculopathy, lumbar region; M79.604 Pain in right leg | CPT/HCPCS: 64493; 64494; 64495; 72110; 99213; J3490 ==

== ENCOUNTER → 2022-07-30 15:16 | Outpatient (BNVA) | payer MEDICARE, OTHER, SELFPAY | PROVIDERS: PCP Family Medicine; Visit Provider Nurse Practitioner Family | DX: L92.0 Granuloma annulare (principal); L72.0 Epidermal cyst; L57.8 Other skin changes due to chronic exposure to nonionizing radiation; L82.1 Other seborrheic keratosis; L81.4 Other melanin hyperpigmentation; D22.5 Melanocytic nevi of trunk; Z71.89 Other specified counseling; L85.3 Xerosis cutis; L57.0 Actinic keratosis | CPT/HCPCS: 17000; 17003; 99213 ==

== ENCOUNTER → 2022-08-07 08:54 | Outpatient (BNVA) | payer MEDICARE, OTHER, SELFPAY | PROVIDERS: PCP Family Medicine; Visit Provider Dermatology | DX: L72.0 Epidermal cyst (principal); L21.8 Other seborrheic dermatitis; L92.0 Granuloma annulare | CPT/HCPCS: 10060; 99214 ==

== ENCOUNTER → 2022-09-17 15:28 | Outpatient (BNVA) | payer MEDICARE, OTHER, SELFPAY | PROVIDERS: PCP Family Medicine; Visit Provider Family Medicine | DX: E11.65 Type 2 diabetes mellitus with hyperglycemia (principal); E03.9 Hypothyroidism, unspecified | CPT/HCPCS: 81000 ==

== ENCOUNTER 2022-09-19 12:52 | Outpatient (CLI) | payer MEDICARE, OTHER, SELFPAY ==
[2022-09-19 13:55] LABS: Estmated Average Glucose 209; Hemoglobin A1C 8.9 % (4.0-6.0)
[2022-09-19 13:59] LABS: Creatinine Urine, Random 69 mg/dL (28-217); Microalbum Creatinine Ratio Ur 29 mg/dL (0-20); Microalbumin Random Urine 2 ug/dL (0-20)
[2022-09-19 14:04] LABS: Alanine Aminotransferase 25 U/L (0-33); Albumin Level 4.2 g/dL (3.5-5.2); Alkaline Phosphatase 80 U/L (35-105); Anion Gap 14.4 (5-19); Aspartate Amino Transferase 18 U/L (0-32); Blood Urea Nitrogen 10 mg/dL (8-23); Carbon Dioxide 31 mmol/L (22-29); Chloride 101 mmol/L (98-107); Chol HDL Ratio 6.22 mg/dL (0.0-4.40); Cholesterol 230 mg/dL (0-200); Free T4 Free Thyroxine 1.37 ng/dL (0.82-1.77); Globulin 2.5 g/dL (1.3-4.6); Glucose 123 mg/dL (65-115); HDL Cholesterol 37 mg/dL (60-100); LDL Cholesterol Calculated 149 mg/dL (50-129); LDL HDL Ratio 4.03 RATIO (0.00-3.22); Osmolality Calculated 294 mOsm/kg (285-295); Potassium 4.4 mmol/L (3.5-5.1); Sodium 142 mmol/L (136-145); Total Bilirubin 0.4 mg/dL (0.15-1.2); Total Protein 6.7 g/dL (6.6-8.7); Triglycerides 219 mg/dL (0-150)
== END 2022-09-19 12:53 | disposition home or self-care (01) ==
PROVIDERS: PCP Family Medicine; Visit Provider Internal Medicine
DX: E11.65 Type 2 diabetes mellitus with hyperglycemia (principal); E03.9 Hypothyroidism, unspecified
CPT/HCPCS: 36415; 80053; 80061; 82044; 83036; 84439; 84443

== ENCOUNTER → 2022-09-26 07:41 | Outpatient (BNVA) | payer MEDICARE, OTHER, SELFPAY | PROVIDERS: PCP Family Medicine; Visit Provider Internal Medicine | DX: E03.9 Hypothyroidism, unspecified (principal); E11.65 Type 2 diabetes mellitus with hyperglycemia; E11.40 Type 2 diabetes mellitus with diabetic neuropathy, unspecified; E11.21 Type 2 diabetes mellitus with diabetic nephropathy; Z79.890 Hormone replacement therapy; Z79.84 Long term (current) use of oral hypoglycemic drugs | CPT/HCPCS: 99214 ==

== ENCOUNTER 2022-10-08 13:44 | Outpatient (CLI) | payer MEDICARE, OTHER, SELFPAY ==
--- NOTE | 2022-10-08 13:54 | XRR_ITS ---
PROCEDURE INFORMATION: Exam: XR Bilateral Hips Exam date and time: 10/08/2022 1:58 PM Age: 76 years old Clinical indication: Hip pain; Bilateral; Additional info: Acute on chronic hip pain TECHNIQUE: Imaging protocol: Radiologic exam of the bilateral hips. Views: 2 views of hips with pelvis when performed. COMPARISON: CR XR hip BI m 5V wo/w pel* [id number] 06/28/2022 1:02 PM FINDINGS: Bones/joints: There are mild degenerative changes of both hip joints with some joint space narrowing and subchondral sclerosis. There is no fracture, malalignment or underlying osseous lesion detected. Remainder of the visualized osseous structures are unremarkable. Soft tissues: Evidence of lower abdominal wall mesh otherwise soft tissues are unremarkable.. XR/XR hip BI 3-4V wo/w pel [id number] IMPRESSION: Mild degenerative changes both hip joints. No acute abnormalities.
== END 2022-10-08 13:45 | disposition home or self-care (01) ==
PROVIDERS: PCP Family Medicine; Visit Provider Family Medicine
DX: M25.551 Pain in right hip (principal); M25.552 Pain in left hip; R93.6 Abnormal findings on diagnostic imaging of limbs
CPT/HCPCS: 73522

== ENCOUNTER → 2022-10-31 10:32 | Outpatient (BNVA) | payer MEDICARE, OTHER, SELFPAY | PROVIDERS: PCP Family Medicine; Referring Provider Family Medicine; Visit Provider Nurse Practitioner Family | DX: M65.341 Trigger finger, right ring finger (principal) | CPT/HCPCS: 20550; 73130; 99213; J3301 ==

== ENCOUNTER 2022-11-19 08:55 | Outpatient (CLI) | payer MEDICARE, OTHER, SELFPAY ==
[2022-11-19 11:04] LABS: Free T4 Free Thyroxine 1.28 ng/dL (0.82-1.77); Thyroid Stimulating Hormone 8.96 uIU/mL (0.27-4.20)
== END 2022-11-19 08:56 | disposition home or self-care (01) ==
PROVIDERS: PCP Family Medicine; Visit Provider Internal Medicine
DX: E03.9 Hypothyroidism, unspecified (principal)
CPT/HCPCS: 36415; 84439; 84443

== ENCOUNTER → 2022-11-27 08:55 | Outpatient (BNVA) | payer MEDICARE, OTHER, SELFPAY | PROVIDERS: PCP Family Medicine; Visit Provider Internal Medicine | DX: E11.65 Type 2 diabetes mellitus with hyperglycemia (principal); E03.9 Hypothyroidism, unspecified; E11.40 Type 2 diabetes mellitus with diabetic neuropathy, unspecified; E11.21 Type 2 diabetes mellitus with diabetic nephropathy; Z79.890 Hormone replacement therapy; Z79.84 Long term (current) use of oral hypoglycemic drugs | CPT/HCPCS: 99214 ==

== ENCOUNTER 2023-02-10 10:44 | Outpatient (CLI) | payer MEDICARE, OTHER, SELFPAY ==
[2023-02-10 13:38] LABS: Estmated Average Glucose 229; Hemoglobin A1C 9.6 % (4.0-6.0)
[2023-02-10 13:49] LABS: Alanine Aminotransferase 22 U/L (0-33); Albumin Level 4.1 g/dL (3.5-5.2); Alkaline Phosphatase 72 U/L (35-105); Anion Gap 12.9 (5-19); Aspartate Amino Transferase 9 U/L (0-32); Blood Urea Nitrogen 12 mg/dL (8-23); Calcium 9.3 mg/dL (8.5-10.5); Carbon Dioxide 29 mmol/L (22-29); Chloride 103 mmol/L (98-107); Chol HDL Ratio 5.61 mg/dL (0.0-4.40); Cholesterol 213 mg/dL (0-200); Free T4 Free Thyroxine 1.38 ng/dL (0.82-1.77); Globulin 3.1 g/dL (1.3-4.6); Glucose 175 mg/dL (65-115); HDL Cholesterol 38 mg/dL (60-100); LDL Cholesterol Calculated 109 mg/dL (50-129); LDL HDL Ratio 2.87 RATIO (0.00-3.22); Osmolality Calculated 296 mOsm/kg (285-295); Potassium 3.9 mmol/L (3.5-5.1); Sodium 141 mmol/L (136-145); Thyroid Stimulating Hormone 2.45 uIU/mL (0.27-4.20); Total Bilirubin 0.4 mg/dL (0.15-1.2); Total Protein 7.2 g/dL (6.6-8.7); Triglycerides 329 mg/dL (0-150)
[2023-02-10 15:12] LABS: Creatinine Urine, Random 164 mg/dL (28-217); Microalbum Creatinine Ratio Ur 37 mg/dL (0-20); Microalbumin Random Urine 6 ug/dL (0-20)
== END 2023-02-10 10:45 | disposition home or self-care (01) ==
LOC: ENDOOACUTE 12:29
PROVIDERS: PCP Family Medicine; Visit Provider Internal Medicine
DX: E11.65 Type 2 diabetes mellitus with hyperglycemia (principal); E03.9 Hypothyroidism, unspecified; E11.40 Type 2 diabetes mellitus with diabetic neuropathy, unspecified; E11.21 Type 2 diabetes mellitus with diabetic nephropathy; Z79.890 Hormone replacement therapy; Z79.85 Long-term (current) use of injectable non-insulin antidiabetic drugs
CPT/HCPCS: 36415; 80053; 80061; 82044; 83036; 84439; 84443; 99214

== ENCOUNTER → 2023-02-11 10:11 | Outpatient (BNVA) | payer MEDICARE, OTHER, SELFPAY | PROVIDERS: PCP Family Medicine; Visit Provider Family Medicine | DX: N39.0 Urinary tract infection, site not specified (principal) | CPT/HCPCS: 81000 ==

== ENCOUNTER → 2023-05-05 10:46 | Outpatient (BNVA) | payer MEDICARE, OTHER, SELFPAY | PROVIDERS: Visit Provider Internal Medicine | DX: E11.65 Type 2 diabetes mellitus with hyperglycemia (principal); E03.9 Hypothyroidism, unspecified; E11.40 Type 2 diabetes mellitus with diabetic neuropathy, unspecified; E11.21 Type 2 diabetes mellitus with diabetic nephropathy; Z79.890 Hormone replacement therapy; Z79.84 Long term (current) use of oral hypoglycemic drugs | CPT/HCPCS: 99214 ==

== ENCOUNTER 2023-05-21 09:15 | Emergency (ER) | payer MEDICARE, OTHER, SELFPAY ==
[2023-05-21 09:20] VITALS: BP 165/106; PULSE 74; TEMP 36.8; O2SAT 98; BMI 35.7
--- NOTE | 2023-05-21 09:21 | XRR_ITS ---
PROCEDURE INFORMATION: Exam: XR Chest Exam date and time: 05/21/2023 9:48 AM Age: 77 years old Clinical indication: Cough and dyspnea; Patient HX: High blood pressure; Additional info: Dyspnea/cough TECHNIQUE: Imaging protocol: Radiologic exam of the chest. Views: 1 view. COMPARISON: CR XR ribs RT mn 3V w CXR1V [id number] 05/28/2016 5:05 PM FINDINGS: Lungs: No consolidation. Pleural spaces: No sizable pleural effusion or pneumothorax. Heart/Mediastinum: No cardiomegaly. Bones/joints: Status post ACDF. XR/XR chest 1V portable [id number] IMPRESSION: No acute intrathoracic findings.
--- NOTE | 2023-05-21 09:21 | ECG_ITS ---
[facility] Test Date: 2023-05-21 Pat Name: Clementina Saxena Department: Room: Gender: Female Train Conductor: : 1945 Requested By: Sotuh Cramer Order Number: [id number] Lewis MD: James Capps M.D. Measurements Intervals [place] Rate: 73 P: 0 MA: 0 QRS: 18 QRSD: 83 T: 79 QT: 387 QTc: 428 Interpretive Statements SINUS RHYTHM SEPTAL MYOCARDIAL INFARCTION , OF INDETERMINATE AGE [40+ ms Q WAVE IN V1/V2] Compared to ECG 08/06/2021 05:52:39 Indeterminate axis no longer present Myocardial infarct finding still present Electronically Signed On 05-21-2023 16:50:47 CDT by James Capps M.D. [id number]
[2023-05-21 09:46] LABS: Basophils # 0.1 10^3/uL (0.0-0.1); Basophils % 0.7 %; Eosinophils # 0.2 10^3/uL (0.0-0.8); Eosinophils % 2.5 %; Hematocrit 46.2 % (36-47); Lymphocytes # 2.5 10^3/uL (0.8-4.8); Lymphocytes % 27.7 %; Mean Corpuscular HGB Conc 32.7 g/dL (30-55); Mean Corpuscular Hemoglobin 29.7 pg (27-33); Mean Corpuscular Volume 90.8 fl (85-98); Mean Platelet Volume 10.4 fL (7.4-10.4); Monocytes # 0.6 10^3/uL (0.2-0.9); Monocytes % 6.9 %; Neutrophils # 5.63 10^3/uL (1.8-7.7); Neutrophils % 61.9 %; Nucleated Red Blood Cells % 0 %; Platelet Count 307 10^3/cmm (157-399); Red Blood Count 5.09 10^6/uL (3.85-5.65); Red Cell Distribution Width 13.4 % (12.1-15.1)
--- NOTE | 2023-05-21 09:54 | ED_ITS ---
HPI - Headache 2 General: Chief Complaint: Headache Stated Complaint: High Blood pressure, sent from [facility] Time Seen by Provider: 05/21/23 09:21 Source: patient Mode of arrival: ambulatory History of Present Illness: 77-year-old female presents emergency ro om with elevated blood pressure extreme anxiety reporting headache. She said this been going on the last couple of days. Reviewing her chart currently she has Lasix triamterene/hydrochlorothiazide list this is her medications. She has not taken any of her medications this morning. She reports that recently added medication for blood sugar that starts with a A she takes once a day. Appears to be Actos according to her medicine list although when I stated the name she said she did not think that was the medication. She states she thinks that since she started taking this medicine her blood pressure has been running higher. MD elicited complaint: headache Onset (ago): day(s) Quality & Timing: throbbing Exacerbating factors: none Relieving factors: nothing Associated symptoms: Deny chest pain, confusion, cough, diaphoresis, eye pain, eye redness, fever(s), lightheadedness, loss of vision, malaise, nausea, neck stiffness, numbness, paresthesias, photophobia, pre-syncope, rash, seizures, short of breath, sound sensitivity, syncope, vomiting or weakness Treatments prior to arrival: none Review of Systems 2 Const: Denies: fever(s), malaise or diaphoresis Card: Denies: chest pain, lightheadedness, syncope or pre-syncope Resp: Denies: dyspnea GI: Denies: nausea or vomiting : Denies: dysuria, urinary frequency or urinary urgency Musc: Denies: neck pain or back pain Skin/Breast: Denies: rash Neuro: Denies: confusion PFSH ED 2 PFSH: Medical History Vertigo Obesity Recurrent UTI Impacted cerumen of both ears Dementia Urolithiasis Left ureteral calculus Diabetes Cystitis cystica Surgical History History of laser assisted in situ keratomileusis History of lithotripsy History of neck surgery History of hysterectomy History of cholecystectomy History of appendectomy History of back surgery Family History Other Adopted Social History Smoking and tobacco/nicotine status: never used tobacco/nicotine Alcohol intake: never Substance/Drug Use: never Adopted: Yes Caregiver/support person: No Lives independently: No Household members: spouse Marital status: Number of children: 4 Number of grandchildren: 8 Current occupational status: retired 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 [employer] Current gender identity: Female Physical Exam 2 Const: GENERAL APPEARANCE: cooperative ORIENTATION/CONSCIOUSNESS: Yes awake, Yes oriented to person, Yes oriented to place and Yes oriented to time HENMT: COMMON NORMALS: normocephalic, atraumatic and hearing grossly normal bilaterally HEAD & SCALP: normocephalic and atraumatic Eye: DIRECT OPHTHALMOSCOPY: No photophobia Resp: COMMON NORMALS: normal respiratory effort, No retractions, No use of accessory muscles and clear to auscultation bilaterally AUSCULTATION: clear to auscultation bilaterally Cardio: COMMON NORMALS: regular rate, regular rhythm and No murmurs present (Cardio) RATE: regular rate RHYTHM: regular rhythm GI: COMMON NORMALS: Soft to palpation and No hepatosplenomegaly present A USCULTATION: Yes normoactive bowel sounds PALPATION: Yes Soft to palpation, No Tenderness to palpation present (GI), No Guarding due to palpation present (GI) and Yes No hepatosplenomegaly present Extremity: COMMON NORMALS: normal to inspection, capillary refill normal, no clubbing, cyanosis or edema, no calf tenderness and no pedal edema Neuro: SENSORIUM/ORIENTATION: Yes oriented to person, Yes oriented to place and Yes oriented to time Psych: MOOD & AFFECT: Yes anxious Skin: COMMON NORMALS: no rashes or lesions noted GENERAL SKIN EXAM: no rashes or lesions noted Course 2 Vital Signs: Vital signs: Vital Signs Temperature 98.2 F 05/21/23 09:20 Pulse Rate 61 05/21/23 12:05 Blood Pressure 143/77 05/21/23 12:05 Pulse Oximetry 96 05/21/23 12:05 Oxygen Delivery Me thod Room Air 05/21/23 10:22 MDM - Headache Medical Decision Making Headache improved with blood pressure control. Will discharge home with amlodipine 5 mg daily lisinopril 20 mg daily she has not been taking triamterene hydrochlorothiazide regularly because of increased urination associated with that asked her to stop that completely for now. Follow-up with her primary care doctor within the week to reevaluate your blood pressure on these new medications return if she has further problems Differential Diagnosis Likely headache Medical Records I reviewed the patient's medical records. Lab Data I reviewed the patient's lab results. 05/21/23 09:36 05/21/23 09:36 Radiology Impressions Chest X-Ray 05/21/23 09:21 IMPRESSION: No acute intrathoracic findings. Laboratory Results WBC 9.10 10^3/uL (3.29-11.43) 05/21/23 09:36 RBC 5.09 10^6/uL (3.85-5.65) 05/21/23 09:36 Hgb 15.10 g/dL (11.27-16.99) 05/21/23 09:36 Hct 46.2 % (36-47) 05/21/23 09:36 MCV 90.8 fl (85-98) 05/21/23 09:36 MCH 29.7 pg (27-33) 05/21/23 09:36 MCHC 32.7 g/dL (30-55) 05/21/23 09:36 RDW 13.4 % (12.1-15.1) 05/21/23 09:36 Plt Count 307 10^3/cmm (157-399) 05/21/23 09:36 MPV 10.4 fL (7.4-10.4) 05/21/23 09:36 Neut % (Auto) 61.9 % 05/21/23 09:36 Lymph % (Auto) 27.7 % 05/21/23 09:36 Burnett % (Auto) 6.9 % 05/21/23 09:36 Eos % (Auto) 2.5 % 05/21/23 09:36 Baso % (Auto) 0.7 % 05/21/23 09:36 Neut # (Auto) 5.63 10^3/uL (1.8-7.7) 05/21/23 09:36 Lymph # (Auto) 2.5 10^3/uL (0.8-4.8) 05/21/23 09:36 Burnett # (Auto) 0.6 10^3/uL (0.2-0.9) 05/21/23 09:36 Eos # (Auto) 0.2 10^3/uL (0.0-0.8) 05/21/23 09:36 Baso # (Auto) 0.1 10^3/uL (0.0-0.1) 05/21/23 09:36 Nucleated RBC % (auto) 0 % 05/21/23 09:36 Nucleated RBCs # 0.0 /100WBC 05/21/23 09:36 Sodium 140 mmol/L (136-145) 05/21/23 09:36 Potassium 3.8 mmol/L (3.5-5.1) 05/21/23 09:36 Chloride 104 mmol/L (98-107) 05/21/23 09:36 Carbon Dioxide 23 mmol/L (22-29) 05/21/23 09:36 Anion Gap 16.8 (5-19) 05/21/23 09:36 BUN 18 mg/dL (8-23) 05/21/23 09:36 Creatinine 0.6 mg/dL (0.5-0.9) 05/21/23 09:36 GFR Calculation Not Reportable 05/21/23 09:36 Glucose 122 mg/dL (65-115) H 05/21/23 09:36 Calculated Osmolality 293 mOsm/kg (285-295) 05/21/23 09:36 Calcium 9.3 mg/dL (8.5-10.5) 05/21/23 09:36 Total Bilirubin 0.6 mg/dL (0.15-1.2) 05/21/23 09:36 AST 16 U/L (0-32) 05/21/23 09:36 ALT 19 U/L (0-33) 05/21/23 09:36 Alkaline Phosphatase 82 U/L (35-105) 05/21/23 09:36 Total Protein 7.1 g/dL (6.6-8.7) 05/21/23 09:36 Albumin 4.3 g/dL (3.5-5.2) 05/21/23 09:36 Globulin 2.8 g/dL (1.3-4.6) 05/21/23 09:36 Urine Color Yellow (Yellow) 05/21/23 10:35 Urine Appearance Clear (CLEAR) 05/21/23 10:35 Urine pH 6 (5-7) 05/21/23 10:35 Ur Specific [place] 1.020 (1.005-1.030) 05/21/23 10:35 Urine Protein Neg (Negative) 05/21/23 10:35 Urine Glucose (UA) Norm (Normal) 05/21/23 10:35 Urine Ketones Negative (Negative) 05/21/23 10:35 Urine Blood Neg (Negative) 05/21/23 10:35 Urine Nitrate Negative (Negative) 05/21/23 10:35 Urine Bilirubin Neg (Negative) 05/21/23 10:35 Urine Urobilinogen Norm mg/dL (Negative) 05/21/23 10:35 Ur Leukocyte Esterase Negative (Negative) 05/21/23 10:35 All radiology interpretation(s) finalized by discharge Discharge Plan Discharge Patient Disposition: Home Clinical Impression: Hypertension, Headache Condition: Stable Prescriptions: New amlodipine 5 mg tablet 5 mg PO DAILY Qty: 30 0RF lisinopril 20 mg tablet 20 mg PO DAILY Qty: 30 0RF No Action memantine 5 mg tablet 5 mg PO BID Qty: 180 0RF (DME) wheeled walker See Rx Instructions .Route .MEDSUPPLY Qty: 1 0RF Rx Instructions: As directed methocarbamol 750 mg tablet 750 mg PO Q8H PRN (Reason: muscle spasms and pain) Qty: 45 0RF (DME) Accu-Chek Samira Plus test strp Strip See Rx Instructions .Route Qty: 200 3RF Rx Instructions: Check BS 1 to 2 times daily gabapentin 300 mg capsule 600 mg PO BID Qty: 180 3RF pioglitazone [Actos] 45 mg tablet 45 mg PO DAILY Qty: 60 0RF donepezil 5 mg tablet 5 mg PO DAILY fluticasone propionate 50 mcg/actuation spray,suspension 1 spray INTRANASAL DAILY PRN (Reason: ALLERGIES) fluconazole 150 mg tablet 150 mg PO DAILY PRN (Reason: YEAST) levothyroxine 175 mcg tablet 175 mcg PO QAM nystatin 100,000 unit/gram powder 1 applic topical BID PRN (Reason: Rash) ibuprofen 600 mg tablet 600 mg PO DAILY PRN (Reason: pain) potassium chloride 10 mEq tablet,ER particles/crystals 10 meq PO DAILY Januvia 100 mg tablet 100 mg PO DAILY Discharge Orders: Discharge ED (Routine); Ordered 05/21/23 Ordered By: [place] Referrals: Tali Luke FNP [Primary Care Provider] - Discharge Diet: Usual diet Discharge Activity: Resume usual activity Patient Instructions: Opioid Safety, Pain Management Activity Restrictions/Additional Instructions: Thank you for choosing [facility] for your healthcare needs today. Please realize this is an emergency room and that we are providing you with a medical screening exam and this may not be complete and all inclusive of all the testing and or work up that you may need to determine your ailment or severity of your illness. It is very important that you follow up as instructed or that you return to the Emergency Department should you have concerns or if your condition changes or worsens in any way. You were seen today with elevated blood pressure and headache. Your blood pressure did improve with the medications given recommend that you start on amlodipine 5 mg daily and lisinopril 20 mg daily follow-up with your primary care doctor within the week to reevaluate blood pressure. Hold the triamterene hydrochlorothiazide. Coding Level of Care Code ED Exterior Interior Specialist for Inna Christian
[2023-05-21 10:09] LABS: Alanine Aminotransferase 19 U/L (0-33); Albumin Level 4.3 g/dL (3.5-5.2); Alkaline Phosphatase 82 U/L (35-105); Anion Gap 16.8 (5-19); Aspartate Amino Transferase 16 U/L (0-32); Blood Urea Nitrogen 18 mg/dL (8-23); Calcium 9.3 mg/dL (8.5-10.5); Carbon Dioxide 23 mmol/L (22-29); Chloride 104 mmol/L (98-107); Creatinine Clr Calc Pharmacy 74.6409; Globulin 2.8 g/dL (1.3-4.6); Glucose 122 mg/dL (65-115); Osmolality Calculated 293 mOsm/kg (285-295); Potassium 3.8 mmol/L (3.5-5.1); Sodium 140 mmol/L (136-145); Total Bilirubin 0.6 mg/dL (0.15-1.2); Total Protein 7.1 g/dL (6.6-8.7)
[2023-05-21] MEDS: amlodipine 5 mg Tablet PO (10:18)
[2023-05-21] MEDS: LORazepam 2 mg/mL INJ 10 mL MDV IV (10:18)
[2023-05-21] MEDS: lisinopril 20 mg Tablet PO (10:18)
[2023-05-21 10:22] VITALS: BP 169/82; PULSE 59; O2SAT 96
--- NOTE | 2023-05-21 10:24 | PC.PHAR ---
PT JUST FINISHED PREDNISONE 20 MG DAILY, DOXYCICLINE HYCLATE 100 MG CAP. TWICE DAILY. PT ALSO HAS 3 MEDICATIONS FILLED AT [facility] THAT WERE VERIFIED AND ADDED TO MED LIST. DONEPEZIL 5 MG DAILY, GABAPENTIN 300 MG TWICE DAILY, AND LEVOTHYROXINE 175MCG DAILY. 05/21/23
[2023-05-21 10:49] LABS: Add Urine Microscopic? NO; Charge for UA Resulting for Rev
[2023-05-21 10:59] LABS: Bilirubin Urine Neg (Negative); Blood Urine Neg (Negative); Glucose Urine UA Norm (Normal); Ketones Urine Negative (Negative); Leukocyte Esterase Urine Negative (Negative); Nitrate Urine Negative (Negative); Protein Urine Neg (Negative); Urine Appearance Clear (CLEAR); Urine Color Yellow (Yellow); Urobilinogen Urine Norm (Negative); pH Urine 6 (5-7)
[2023-05-21] MEDS: hyDRALAzine 20 mg/mL INJ 1 mL 10 MG IVP (11:20)
[2023-05-21 12:05] VITALS: BP 143/77; PULSE 61; O2SAT 96
== END 2023-05-21 12:06 | disposition home or self-care (01) ==
PROVIDERS: Emergency Provider Family Medicine; PCP Nurse Practitioner Family
DX: R51.9 Headache, unspecified (principal); I10 Essential (primary) hypertension; F03.90 Unspecified dementia, unspecified severity, without behavioral disturbance, psychotic disturbance, mood disturbance, and anxiety; E11.9 Type 2 diabetes mellitus without complications
CPT/HCPCS: 71045; 80053; 81003; 85025; 93005; 96374; 96375; 99285; J0360; J2060

== ENCOUNTER 2023-07-02 09:23 | Emergency (ER) | payer MEDICARE, OTHER, SELFPAY ==
[2023-07-02 09:28] VITALS: BP 105/76; PULSE 85; RESP 18; TEMP 36.8; O2SAT 98; BMI 35.3
--- NOTE | 2023-07-02 09:43 | ECG_ITS ---
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 Measurements Intervals [place] Rate: 78 P: 48 MT: 153 QRS: 57 QRSD: 85 T: 67 QT: 382 QTc: 437 Interpretive Statements SINUS RHYTHM LOW QRS VOLTAGE IN PRECORDIAL LEADS [QRS DEFLECTION < 1.0 mV IN CHEST LEADS] SEPTAL MYOCARDIAL INFARCTION , OF INDETERMINATE AGE [40+ ms Q WAVE IN V1/V2] Compared to ECG 05/21/2023 09:28:15 Low QRS voltage now present Myocardial infarct finding still present Electronically Signed On 07-02-2023 16:50:24 CDT by James Capps M.D. [id number]
--- NOTE | 2023-07-02 09:58 | CT_ITS ---
WS: [id number] CTA HEAD AND NECK TECHNIQUE: Contrast enhanced CTA of the head and neck with coronal and sagittal reformatted images an d maximum intensity projection (MIP) images. NASCET criteria utilized. CLINICAL INFORMATION: stroke COMPARISON: None. DLP: 469.[address] scans at [facility] use at least one of these dose optimization techniques: automated e xposure control; mA and/or kV adjustment per patient size (includes targeted exams where dose is matc hed to clinical indication); or iterative reconstruction. FINDINGS: RIGHT: RIGHT common carotid artery is patent. No significant RIGHT ICA stenosis. RIGHT ICA is patent to the skull base. Mild atheromatous plaque RIGHT carotid bulb extending into the ICA. Retropharyngea l course RIGHT cervical ICA. LEFT: LEFT common carotid artery is patent. No significant LEFT ICA stenosis. LEFT ICA is patent to t he skull base. Both vertebral arteries are patent. Basilar artery is patent. Mild intracranial atheromatous disease. Mild segmental stenosis in the posterior cerebral arteries which remain patent. Both ICAs are patent at the skull base. Mild cavernous carotid calcification. No proximal flow-limiti ng stenosis. Normal vascularity to the GEOFFREY and MCA territories bilaterally. Mild narrowing RIGHT dist al M1 segment which remains patent. Mild atheromatous disease LEFT proximal subclavian artery which remains patent. RIGHT subclavian zenon ry is patent. Straightening of the normal cervical lordosis. Prior ACDF with partial corpectomy at C5-C7. Disc oste ophyte protrusion at C4-5 with mild to moderate central canal stenosis. CT/CT angio headneck* [id number] IMPRESSION: 1. Less than 50% cervical ICA stenosis bilaterally. Both ICAs are patent to th e skull base. Bilateral tortuous cervical ICAs. 2. Both vertebral arteries are patent. Proximal basilar artery is patent. 3. No proximal flow-limiting intracranial stenosis. 4. 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 5. No other acute findings. Notified Love Noble MD at 07/02/2023 10:46 AM.
--- NOTE | 2023-07-02 09:58 | CT_ITS ---
WS: [id number] CT HEAD TECHNIQUE: Noncontrast CT of the head obtained from the skullbase to the vertex. CLINICAL INFORMATION: left sensory deficit COMPARISON: CT 12/25/2021 DLP: [address] scans at [facility] use at least one of these dose optimization techniques: automated e xposure control; mA and/or kV adjustment per patient size (includes targeted exams where dose is matc hed to clinical indication); or iterative reconstruction. FINDINGS: No evidence of intracranial hemorrhage or mass effect. Ventricular system and basal cisterns are barrett nt. Mild small vessel changes with moderate parenchymal volume loss. Vascular calcification. No extra -axial fluid collections. No evidence of mass or mass effect. Sphenoid sinusitis with air-fluid level. 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 Mastoid air c ells are well aerated. CT/CT head wo con* [id number] IMPRESSION: 1. No evidence of intracranial hemorrhage or mass effect. 2. Sphenoid sinusitis. 3. No acute intracranial findings Notified Love Noble MD at 07/02/2023 10:03 AM.
--- NOTE | 2023-07-02 09:59 | ED_ITS ---
HPI - Neuro Symptoms/Deficit 2 General: Chief Complaint: Neuro Symptoms/Deficit Stated Complaint: left side numbness Time Seen by Provider: 07/02/23 09:54 History of Present Illness: 77-year-old female with a history of dem entia, hypertension, neuropathy, obesity and diabetes who presents to the emergency room with neurologic symptoms. She says last night she had a feeling of burning or heat in her face and left arm. She felt numbness in her left leg and arm and face. Her tried to get her to come to the emergency room but she declined and stayed home and slept. This morning symptoms have improved some. She says she also has been having off-and-on tremor in her right arm. This occurred overnight. But seems to have improved today. No focal motor deficits. No altered mental status. No slurred speech. No sensory deficit at this time. She says just her arm and face still feel somewhat numb but again she can feel touch. No vision deficits. No chest pain. No cough. No fever. No shortness of breath. No abdominal pain. No nausea or vomiting. Review of Systems 2 Narrative: Constitutional symptoms: Negative except as documented in HPI. Skin symptoms: Negative except as documented in HPI. Eye symptoms: Negative except as documented in HPI. ENMT symptoms: Negative except as documented in HPI. Respiratory symptoms: Negative except as documented in HPI. Cardiovascular symptoms: Negative except as documented in HPI. Gastrointestinal symptoms: Negative except as documented in HPI. Genitourinary symptoms: Negative except as documented in HPI. Musculoskeletal symptoms: Negative except as documented in HPI. Neurologic symptoms: Negative except as documented in HPI. Psychiatric symptoms: Negative except as documented in HPI. Endocrine symptoms: Negative except as documented in HPI. PFSH ED 2 PFSH: Medical History Vertigo Obesity Recurrent UTI Impacted cerumen of both ears Dementia Urolithiasis Left ureteral calculus Diabetes Cystitis cystica Surgical History History of laser assisted in situ keratomileusis History of lithotripsy History of neck surgery History of hysterectomy History of cholecystectomy History of appendectomy History of back surgery Family History Other Adopted Social History Smoking and tobacco/nicotine status: never used tobacco/nicotine Alcohol intake: never Substance/Drug Use: never Adopted: Yes Caregiver/support person: No Lives independently: No Household members: spouse Marital status: Number of children: 4 Number of grandchildren: 8 Current occupational status: retired 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 Skin: Warm, dry. Head: Normocephalic, atraumatic. Neck: Supple, trachea midline. Eye: Extraocular movements are intact. Ears, nose, mouth and throat: mucosa moist. Cardiovascular: Regular, Normal peripheral perfusion. Respiratory: Lungs are clear to auscultation, respirations are non-labored, breath sounds are equal, Symmetrical chest wall expansion. Gastrointestinal: Soft, Nontender, Non distended, Normal bowel sounds. Musculoskeletal: Normal ROM, no deformity. Neurological: Alert and oriented, No focal neurological deficit observed. No slurred speech. No vision deficits. No sensory deficits. Psychiatric: Cooperative, patient does appear somewhat anxious Course 2 Vital Signs: Vital signs: Vital Signs Temperature 98.3 F 07/02/23 09:28 Pulse Rate 85 07/02/23 09:28 Respiratory Rate 18 07/02/23 09:28 Blood Pressure 105/76 07/02/23 09:28 Pulse Oximetry 98 07/02/23 09:28 Oxygen Delivery Me thod Room Air 07/02/23 09:28 MDM - Neuro Symptoms/Deficit Medical Decision Making Medical decision making: Differential diagnosis for patient with focal neurologic deficit(s) includes but not limited to and based on the above HPI, review of systems and physical exam: ischemic stroke, hemorrhagic stroke and embolic stroke secondary to atrial fibrillation), TIA, Art's palsey, metabolic encephalopathy with previous stroke. Orders placed to evaluate differential diagnosis based on the above differential, HPI and physical exam Lab Review: Laboratory results were reviewed and interpreted by myself the emergency room physician. White count is 6.9. Hemoglobin is 15. BUN and creatinine are 19 and 0.6. I think she is a bit dehydrated. Urinalysis is positive for infection. This is likely the cause of her worsening dementia and neurologic symptoms. She was evaluated by neurology. EKG: Time 9:43 AM rate 78 normal sinus rhythm, No ST-T changes, no ectopy, normal RI & QRS intervals, This was reviewed and interpreted by myself the ER physician at 948. CT head: No acute intracranial process. no intracranial hemorrhage, no evidence of infarct. no evidence of acute fracture.This was reviewed and interpreted by myself the ER physician. CTA head and neck: There are no significant occlusions. Nothing acute. This was reviewed and interpreted by myself the emergency room physician. I also spoke with the radiologist on-call about the findings. Consultation: Dr. Blanchard examined the patient in the emergency room. She has an NIH of 0. He recommends outpatient follow-up MRI and EEG. She should schedule appoint with him in the next week or so. NIH Stroke Scale/Score (NIHSS) from [email or web address] on 07/02/2023 All calculations should be rechecked by clinician prior to use RESULT SUMMARY: 0 points NIH Stroke Scale INPUTS: 1A: Level of consciousness ?> 0 = Alert; keenly responsive 1B: Ask month and age ?> 0 = Both questions right 1C: 'Blink eyes' & 'squeeze hands' ?> 0 = Performs both tasks 2: Horizontal extraocular movements ?> 0 = Normal 3: Visual martinez ?> 0 = No visual loss 4: Facial palsy ?> 0 = Normal symmetry 5A: Left arm motor drift ?> 0 = No drift for 10 seconds 5B: Right arm motor drift ?> 0 = No drift for 10 seconds 6A: Left leg motor drift ?> 0 = No drift for 5 seconds 6B: Right leg motor drift ?> 0 = No drift for 5 seconds 7: Limb Ataxia ?> 0 = No ataxia 8: Sensation ?> 0 = Normal; no sensory loss 9: Language/aphasia ?> 0 = Normal; no aphasia 10: Dysarthria ?> 0 = Normal 11: Extinction/inattention ?> 0 = No abnormality I reviewed the patient's medical record. Reexamination: Patient remained stable. No focal motor deficits. No altered mental status. No slurred speech. No increased work of breathing. Assessment and plan: Urinary tract infection Dehydration Neurologic symptoms -Normal saline bolus and IV Rocephin. - Discharged home - Discussed findings and plan with patient. Answered any questions. - All laboratory values were reviewed and interpreted personally by myself, the ER physician - All imaging was reviewed and interpreted personally by myself, the ER physician. - Evaluation and treatment of this problem were appropriate in the emergency setting Lab Data 07/02/23 10:10 07/02/23 10:[address] 07/02/23 09:58 IMPRESSION: 1. No evidence of intracranial hemorrhage or mass effect. 2. Sphenoid sinusitis. 3. No acute intracranial findings Notified Love Noble MD at 07/02/2023 10:03 AM. Head/Neck CTA 07/02/23 09:58 IMPRESSION: 1. Less than 50% cervical ICA stenosis bilaterally. Both ICAs are patent to the skull base. Bilateral tortuous cervical ICAs. 2. Both vertebral arteries are patent. Proximal basilar artery is patent. 3. No proximal flow-limiting intracranial stenosis. 4. 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 5. No other acute findings. Notified Love Noble MD at 07/02/2023 10:46 AM. Laboratory Results WBC 6.93 10^3/uL (3.29-11.43) 07/02/23 10:10 RBC 5.09 10^6/uL (3.85-5.65) 07/02/23 10:10 Hgb 15.00 g/dL (11.27-16.99) 07/02/23 10:10 Hct 46.5 % (36-47) 07/02/23 10:10 MCV 91.4 fl (85-98) 07/02/23 10:10 MCH 29.5 pg (27-33) 07/02/23 10:10 MCHC 32.3 g/dL (30-55) 07/02/23 10:10 RDW 13.0 % (12.1-15.1) 07/02/23 10:10 Plt Count 307 10^3/cmm (157-399) 07/02/23 10:10 MPV 10.5 fL (7.4-10.4) H 07/02/23 10:10 Neut % (Auto) 65.1 % 07/02/23 10:10 Lymph % (Auto) 21.2 % 07/02/23 10:10 [place] % (Auto) 5.6 % 07/02/23 10:10 Eos % (Auto) 6.6 % 07/02/23 10:10 Baso % (Auto) 1.2 % 07/02/23 10:10 Neut # (Auto) 4.51 10^3/uL (1.8-7.7) 07/02/23 10:10 Lymph # (Auto) 1.5 10^3/uL (0.8-4.8) 07/02/23 10:10 [place] # (Auto) 0.4 10^3/uL (0.2-0.9) 07/02/23 10:10 Eos # (Auto) 0.5 10^3/uL (0.0-0.8) 07/02/23 10:10 Baso # (Auto) 0.1 10^3/uL (0.0-0.1) 07/02/23 10:10 Nucleated RBC % (auto) 0 % 07/02/23 10:10 Nucleated RBCs # 0.0 /100WBC 07/02/23 10:10 PT 13.80 SECONDS (12.1-14.9) 07/02/23 10:10 INR 1.03 (0.8-1.2) 07/02/23 10:10 APTT 29.9 SECONDS (23.9-36.7) 07/02/23 10:10 Sodium 143 mmol/L (136-145) 07/02/23 10:10 Potassium 3.9 mmol/L (3.5-5.1) 07/02/23 10:10 Chloride 105 mmol/L (98-107) 07/02/23 10:10 Carbon Dioxide 25 mmol/L (22-29) 07/02/23 10:10 Anion Gap 16.9 (5-19) 07/02/23 10:10 BUN 19 mg/dL (8-23) 07/02/23 10:10 Creatinine 0.6 mg/dL (0.5-0.9) 07/02/23 10:10 GFR Calculation Not Reportable 07/02/23 10:10 Glucose 137 mg/dL (65-115) H 07/02/23 10:10 Calculated Osmolality 300 mOsm/kg (285-295) H 07/02/23 10:10 Calcium 9.3 mg/dL (8.5-10.5) 07/02/23 10:10 Total Bilirubin 0.6 mg/dL (0.15-1.2) 07/02/23 10:10 AST 16 U/L (0-32) 07/02/23 10:10 ALT 21 U/L (0-33) 07/02/23 10:10 Alkaline Phosphatase 86 U/L (35-105) 07/02/23 10:10 Total Protein 7.6 g/dL (6.6-8.7) 07/02/23 10:10 Albumin 4.1 g/dL (3.5-5.2) 07/02/23 10:10 Globulin 3.5 g/dL (1.3-4.6) 07/02/23 10:10 Urine Color Yellow (Yellow) 07/02/23 11:03 Urine Appearance Cloudy (CLEAR) A 07/02/23 11:03 Urine pH 8 (5-7) H 07/02/23 11:03 Ur Specific [place] 1.020 (1.005-1.030) 07/02/23 11:03 Urine Protein Neg (Negative) 07/02/23 11:03 Urine Glucose (UA) Norm (Normal) 07/02/23 11:03 Urine Ketones 1+ (Negative) H 07/02/23 11:03 Urine Blood 2+ (Negative) H 07/02/23 11:03 Urine Nitrate Positive (Negative) H 07/02/23 11:03 Urine Bilirubin Neg (Negative) 07/02/23 11:03 Prot Sulfosalicylic Acd Negative (Negative) 07/02/23 11:03 Urine Urobilinogen Norm mg/dL (Negative) 07/02/23 11:03 Ur Leukocyte Esterase 1+ (Negative) H 07/02/23 11:03 Urine RBC 0-4 /hpf (0-2) H 07/02/23 11:03 Urine WBC 10-15 /hpf (0-5) H 07/02/23 11:03 Ur Squamous Epith Cells 0-4 /hpf (0-5) H 07/02/23 11:03 Amorphous Sediment Not Reportable 07/02/23 11:03 Urine Bacteria 2+ /hpf (NONE) H 07/02/23 11:03 Urine Mucus None /hpf 07/02/23 11:03 All radiology interpretation(s) finalized by discharge Discharge Plan Discharge Patient Disposition: Home Clinical Impression: Urinary tract infection, Dehydration, Neurological symptoms Condition: Stable Prescriptions: New cefdinir 300 mg capsule 300 mg PO BID 5 Days Qty: 10 0RF No Action memantine 5 mg tablet 5 mg PO BID Qty: 180 0RF (DME) wheeled walker See Rx Instructions .Route .MEDSUPPLY Qty: 1 0RF Rx Instructions: As directed methocarbamol 750 mg tablet 750 mg PO Q8H PRN (Reason: muscle spasms and pain) Qty: 45 0RF pioglitazone [Actos] 45 mg tablet 45 mg PO DAILY Qty: 60 0RF (DME) Accu-Chek Samira Plus test strp Strip See Rx Instructions .ROUTE .COMPLEX Qty: 200 0RF Dose Instruction: USE 1 STRIP TO CHECK GLUCOSE ONCE DAILY TO TWICE DAILY Rx Instructions: USE 1 STRIP TO CHECK GLUCOSE ONCE DAILY TO TWICE DAILY donepezil 5 mg tablet 5 mg PO DAILY fluticasone propionate 50 mcg/actuation spray,suspension 1 spray INTRANASAL DAILY PRN (Reason: ALLERGIES) nystatin 100,000 unit/gram powder 1 applic topical BID PRN (Reason: Rash) amlodipine 5 mg tablet 5 mg PO DAILY Qty: 30 0RF lisinopril 20 mg tablet 20 mg PO DAILY Qty: 30 0RF potassium chloride 10 mEq tablet extended release 10 meq PO DAILY sertraline 25 mg tablet 25 mg PO DAILY levothyroxine 175 mcg tablet 175 mcg PO DAILY gabapentin 300 mg capsule 300 mg PO BID ibuprofen 600 mg tablet 600 mg PO DAILY PRN (Reason: Pain) Lions Jens 1 tab PO DAILY Discharge Orders: Discharge ED (Routine); Ordered 07/02/23 Ordered By: Love Noble Referrals: Del Blanchard MD [Physician] - 4-7 days (Please call for an appointment. He has recommended an MRI and an EEG.) Tali Luke FNP [Primary Care Provider] - (You have been screened and evaluated and felt safe for discharge. Health conditions do change or evolve sometimes and as such it is important that you follow up with your Primary Doctor to be re checked, 3-5 days is a general good time frame for follow up. 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
[2023-07-02 10:15] LABS: Basophils # 0.1 10^3/uL (0.0-0.1); Basophils % 1.2 %; Eosinophils # 0.5 10^3/uL (0.0-0.8); Eosinophils % 6.6 %; Hematocrit 46.5 % (36-47); Lymphocytes # 1.5 10^3/uL (0.8-4.8); Lymphocytes % 21.2 %; Mean Corpuscular HGB Conc 32.3 g/dL (30-55); Mean Corpuscular Hemoglobin 29.5 pg (27-33); Mean Corpuscular Volume 91.4 fl (85-98); Mean Platelet Volume 10.5 fL (7.4-10.4); Monocytes # 0.4 10^3/uL (0.2-0.9); Monocytes % 5.6 %; Neutrophils # 4.51 10^3/uL (1.8-7.7); Neutrophils % 65.1 %; Nucleated Red Blood Cells % 0 %; Platelet Count 307 10^3/cmm (157-399); Red Blood Count 5.09 10^6/uL (3.85-5.65); White Blood Count 6.93 10^3/uL (3.29-11.43)
--- NOTE | 2023-07-02 10:16 | PM.CONSULT ---
Providers/Reason For Consult Consulting Physician/Specialty*: Del Blanchard MD neurology and epilepsy Reason for Consult*: Code stroke emergency department room #6/acute care Primary Care Provider: OLMAN Mar History of Present Illness History of Present Illness Clementina Saxena is a 77 year old female with a history of type 2 diabetes mellitus, dementia, and insomnia. The patient stated that on 06/30/2022 she was sitting in her recliner at night around 9 PM and experienced severe burning over the left side of her body associated with shaking and a sensation that the right jaw and left face was drew. The patient stated that she did not seek immediate medical attention. But, on 07/02/2023 she presented to the emergency room secondary to to the symptoms not resolving. In the emergency room the patient reported resolution of her symptoms except for a sensation of right jaw and left face drew. There was no obvious signs of any facial contractions during this neurological assessment. NIH score = 0. Noncontrast head CT was reported to be negative. Metabolic lab was obtained. CBC was unremarkable. Serum glucose and comprehensive metabolic panel results pending at the time of this dictation. Patient scheduled for CT angiogram of the head and neck. But this study is yet to be performed. Drug allergies: Adhesive tape which resulted in itching Codeine which resulted in nausea Current medications: Norvasc 5 mg p.o. daily Aricept 5 mg p.o. daily Namenda 5 mg p.o. twice daily Neurontin 300 mg p.o. twice daily Ibuprofen 600 mg p.o. daily, as needed pain Synthroid 175 mcg p.o. daily Lisinopril 20 mg p.o. daily Methocarbamol 750 mg p.o. every 8 hours as needed Pioglitazone 45 mg p.o. daily Potassium chloride 10 mEq p.o. daily Zoloft 25 mg p.o. daily Januvia 100 mg p.o. daily Past medical history: Hypertension Dementia Hypothyroidism Type 2 diabetes mellitus Diabetic neuropathy Right urethral calculus Degenerative disc disease of lumbar spine Subluxation of L3/L4 lumbar vertebrae Lumbar stenosis with neurogenic claudication Recurrent urinary tract infection Habits: None Social history: Patient lives with her Review of Systems General: Reports: 10 or more systems reviewed and unremarkable except in HPI and below Medications/Allergies Home Medications Medication Instructions Recorded Confirmed Last Taken Type memantine 5 mg tablet 5 mg PO BID #180 tabs 01/03/23 07/02/23 05/20/23 Rx wheeled walker #1 ea 01/03/23 07/02/23 Unknown Rx methocarbamol 750 mg tablet 750 mg PO Q8H PRN muscle spasms 02/20/23 06/04/23 Unknown Rx and pain #45 tabs pioglitazone 45 mg tablet (Actos) 45 mg PO DAILY #60 tabs 05/20/23 07/02/23 Unknown Rx amlodipine 5 mg tablet 5 mg PO DAILY #30 tabs 05/21/23 07/02/23 Unknown Rx donepezil 5 mg tablet 5 mg PO DAILY 05/21/23 07/02/23 05/20/23 History fluconazole 150 mg tablet 150 mg PO DAILY PRN YEAST 05/21/23 06/04/23 Unknown History fluticasone propionate 50 1 spray intranasal DAILY PRN 05/21/23 06/04/23 05/20/23 History mcg/actuation nasal ALLERGIES spray,suspension lisinopril 20 mg tablet 20 mg PO DAILY #30 tabs 05/21/23 07/02/23 Unknown Rx nystatin 100,000 unit/gram topical 1 applic topical BID PRN Rash 05/21/23 06/04/23 Unknown History powder sitagliptin phosphate 100 mg 100 mg PO DAILY 05/21/23 07/02/23 05/20/23 History tablet (Januvia) blood sugar diagnostic (Accu-Chek #200 ea 06/20/23 07/02/23 Unknown Rx Samira Plus test strips) gabapentin 300 mg capsule 300 mg PO BID 07/02/23 07/02/23 Unknown History ibuprofen 600 mg tablet 600 mg PO DAILY PRN Pain 07/02/23 07/02/23 Unknown History levothyroxine 175 mcg tablet 175 mcg PO DAILY 07/02/23 07/02/23 Unknown History potassium chloride 10 mEq 10 meq PO DAILY 07/02/23 07/02/23 Unknown History tablet,extended release sertraline 25 mg tablet 25 mg PO DAILY 07/02/23 07/02/23 Unknown History Allergies Allergy/AdvReac Type Severity Reaction Status Date / Time adhesive tape Allergy ADR-Itching Verified 06/04/23 08:40 codeine Allergy ADR-Nausea Verified 06/04/23 08:40 PFSH Acute PFSH: Medical History Vertigo Obesity Recurrent UTI Impacted cerumen of both ears Dementia Urolithiasis Left ureteral calculus Diabetes Cystitis cystica Surgical History History of laser assisted in situ keratomileusis History of lithotripsy History of neck surgery History of hysterectomy History of cholecystectomy History of appendectomy History of back surgery Family History Other Adopted Social History Smoking and tobacco/nicotine status: never used tobacco/nicotine Alcohol intake: never Substance/Drug Use: never Adopted: Yes Caregiver/support person: No Lives independently: No Household members: spouse Marital status: Number of children: 4 Number of grandchildren: 8 Current occupational status: retired 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 Speech fluent. Head normocephalic. Neck supple. Cranial nerves II through XII intact pupils equal round and reactive to light and accommodation. Patient does have signs of cataract surgery bilaterally. Extraocular movements intact. Visual martinez full via confrontation. Motor testing 5/5 bilaterally. There was no drift. [id number] and uazr-[id number] maneuvers revealed no ataxia. The patient did display intermittent tremor in the right upper extremity which was suggestive of possible resting tremor. Gait was not assessed to further evaluate the tremor secondary to patient's evaluation for acute transischemic attack. There was no extinction on double sensory stimulation. Deep tendon reflexes 1-2+ bilaterally except for decreased Achilles reflexes bilaterally. Plantar responses flexor bilaterally. There was no clonus. Sensory examination was intact to touch. Throat clear. Lungs clear. Heart regular rhythm and rate. Extremities were negative for clubbing cyanosis or edema. Data 07/02/23 10:10 07/02/23 10:10 A&P Assessment and plan (1) TIA (transient ischemic attack): Impression: 1. Transient ischemic attack manifested as left-sided burning pain with reported shaking and a sensation of the right jaw and left lip was drew. Since the patient's symptoms began on 07/01/2023 at approximately 9 PM and the patient did not present to the [facility] emergency department until 07/02/2023 and code stroke was initiated at 9:50 AM on 07/02/2023 and NIH score =0, the patient was not a candidate for thrombolytics and no thrombolytics were administered. 2. Intermittent tremor in the right upper extremity suggestive of possible resting tremor 3. History of memory loss Plan: 1. Follow-up results of pending metabolic lab 2. Agree with obtaining CT angiogram of the head and neck 3. Recommend obtaining head MRI without and with contrast to assess for space-occupying lesions and basal ganglia strokes 4. Recommend obtaining sleep deprived surface EEG recording to assess for seizures 5. Please schedule patient for follow-up in the [facility] neurology clinic in 2 weeks after discharge Consult Attestations Medical Necessity Statement: Patient evaluated by neurology for acute care/code stroke emergency department room #6 Coding Level of Care Code 67016 Diagnoses TIA (transient ischemic attack) G45.9
[2023-07-02 10:28] LABS: INR 1.03 (0.8-1.2)
[2023-07-02 10:29] LABS: Partial Thromboplastin Time 29.9 SECONDS (23.9-36.7)
[2023-07-02 10:32] LABS: Alanine Aminotransferase 21 U/L (0-33); Albumin Level 4.1 g/dL (3.5-5.2); Alkaline Phosphatase 86 U/L (35-105); Anion Gap 16.9 (5-19); Aspartate Amino Transferase 16 U/L (0-32); Blood Urea Nitrogen 19 mg/dL (8-23); Calcium 9.3 mg/dL (8.5-10.5); Carbon Dioxide 25 mmol/L (22-29); Chloride 105 mmol/L (98-107); Creatinine Clr Calc Pharmacy 73.7977; Globulin 3.5 g/dL (1.3-4.6); Glucose 137 mg/dL (65-115); Osmolality Calculated 300 mOsm/kg (285-295); Potassium 3.9 mmol/L (3.5-5.1); Sodium 143 mmol/L (136-145); Total Bilirubin 0.6 mg/dL (0.15-1.2); Total Protein 7.6 g/dL (6.6-8.7)
[2023-07-02] MEDS: iohexol 350 mg/mL 500 mL Btl (per mL) IV (10:37)
--- NOTE | 2023-07-02 11:05 | PC.PHAR ---
Addendum entered by Deepti Perez 07/02/23 11:24: pt states still takes donepezil 5mg daily ext shows last filled 03/27/23 90d/s -pt states she took am meds today but unsure which are am meds pt states she took 2 tabs of something for pain this am but unsure what it is Original Note: pt states she takes care of her own medications-pt states januvia 100mg daily was dced ext shows last filled 05/05/23 90d/s and changed to actos 45mg daily ext shows last filled 05/20/23 60d/s- pt states not taken her actos in 3 weeks-pt states she doesnt have sertraline 25mg daily ext shows last filled 06/13/23 30d/s-
[2023-07-02 11:26] LABS: Glucose Urine UA Norm (Normal); Ketones Urine 1+ (Negative); Protein Urine Neg (Negative); Urine Appearance Cloudy (CLEAR); Urine Color Yellow (Yellow); pH Urine 8 (5-7)
[2023-07-02 11:27] LABS: Bilirubin Urine Neg (Negative); Blood Urine 2+ (Negative); Leukocyte Esterase Urine 1+ (Negative); Nitrate Urine Positive (Negative); Sulfosalicylic Acid Urine Negative (Negative); Urobilinogen Urine Norm (Negative)
[2023-07-02 11:29] LABS: Add Urine Culture? Yes; Bacteria Urine 2+ /hpf; RBC Urine 0-4 /hpf (0-2); Squamous Epithelial Cell Urine 0-4 /hpf (0-5)
[2023-07-02] MEDS: cefTRIAXone 1,000 MG in sodium chloride 0.9% (plus) 50 ML 100 MG IV (11:55)
[2023-07-02] MEDS: sodium chloride 0.9% 500 ML 999 ML IV (11:55)
[2023-07-02 14:23] LABS: Glucose Point of Care 147 mg/dL (70-110)
== END 2023-07-02 13:02 | disposition home or self-care (01) ==
PROVIDERS: Emergency Provider Emergency Medicine; PCP Nurse Practitioner Family
DX: N39.0 Urinary tract infection, site not specified (principal); E86.0 Dehydration; R29.90 Unspecified symptoms and signs involving the nervous system; F03.90 Unspecified dementia, unspecified severity, without behavioral disturbance, psychotic disturbance, mood disturbance, and anxiety; E11.9 Type 2 diabetes mellitus without complications; Z87.440 Personal history of urinary (tract) infections
CPT/HCPCS: 36415; 36416; 70450; 70496; 70498; 80053; 81001; 82962; 85025; 85610; 85730; 87077; 87086; 87186; 93005; 96374; 99285; J0696; J7040; Q9967

== ENCOUNTER → 2023-07-09 12:09 | Outpatient (BNVA) | payer MEDICARE, OTHER, SELFPAY | PROVIDERS: PCP Nurse Practitioner Family; Visit Provider Internal Medicine | DX: E11.65 Type 2 diabetes mellitus with hyperglycemia (principal); E03.9 Hypothyroidism, unspecified; E11.40 Type 2 diabetes mellitus with diabetic neuropathy, unspecified; E11.21 Type 2 diabetes mellitus with diabetic nephropathy; Z79.890 Hormone replacement therapy | CPT/HCPCS: 99214 ==

== ENCOUNTER → 2023-07-14 10:00 | Outpatient (BNVA) | payer MEDICARE, OTHER, SELFPAY | PROVIDERS: PCP Nurse Practitioner Family; Referring Provider Nurse Practitioner Family; Visit Provider Psychiatry & Neurology Neurology | DX: F03.90 Unspecified dementia, unspecified severity, without behavioral disturbance, psychotic disturbance, mood disturbance, and anxiety (principal); E55.9 Vitamin D deficiency, unspecified; I25.10 Atherosclerotic heart disease of native coronary artery without angina pectoris; Z86.73 Personal history of transient ischemic attack (TIA), and cerebral infarction without residual deficits | CPT/HCPCS: 36415; 82306; 82542; 82607; 82746; 83090; 83735; 83921; 86592; 86780; 99213 ==

== ENCOUNTER 2023-07-23 10:20 | Outpatient (CLI) | payer MEDICARE, OTHER, SELFPAY ==
--- NOTE | 2023-07-23 10:15 | MR_ITS ---
WS: [id number] MRI HEAD WITH CONTRAST TECHNIQUE: Sagittal T1, T2 axial, T2 axial FLAIR, axial susceptibility weighted imaging, axial diffus ion weighted images, and coronal T2 images were obtained. Pre and post-T1 axial and post T1 coronal i mages. ADC and FSPGR images. CLINICAL INFORMATION: F03.90 - Unspecified dementia, unspecified severity, with... COMPARISON: None. FINDINGS: No evidence of restricted diffusion to suggest acute ischemia. Ventricular system and basilar cistern s are patent. Mild small vessel changes. Moderate parenchymal volume loss. Mild small vessel changes in the lawanda. Moderate parenchymal volume loss worse in the frontal lobes appear slightly progressed c ompared to 2021. Tiny chronic lacunar infarct RIGHT cerebellum. Normal vascular flow voids at the sku ll base. No extra-axial fluid collections. No evidence of mass or mass effect. Mastoid air cells are well aerated. Normal posterior nasopharynx. No hemosiderin on the susceptibly weighted images. No abnormal gadolinium enhancement. Normal dural venous sinuses. Incidental partially empty sella. MR/MR head wo/w con [id number] IMPRESSION: 1. No evidence of restricted diffusion to suggest acute ischemia. 2. Minimal small vessel changes with moderate parenchymal volume loss. This is worse in the frontal lobes progressed since 2021 3. Moderate symmetric atrophy temporal lobes and hippocampal formations. 4. No hemosiderin on susceptibility-weighted images. 5. No abnormal gadolinium enhancement.
[2023-07-23] MEDS: gadobenate dimeglumine 20 mL vial IV (11:41)
== END 2023-07-23 10:21 | disposition home or self-care (01) ==
LOC: RAD 10:21
PROVIDERS: PCP Nurse Practitioner Family; Visit Provider Psychiatry & Neurology Neurology
DX: F03.90 Unspecified dementia, unspecified severity, without behavioral disturbance, psychotic disturbance, mood disturbance, and anxiety (principal); G93.89 Other specified disorders of brain; G31.89 Other specified degenerative diseases of nervous system
CPT/HCPCS: 70553; A9577

== ENCOUNTER 2023-07-31 10:58 | Emergency (ER) | payer MEDICARE, OTHER, SELFPAY ==
[2023-07-31 11:12] VITALS: BP 165/62; PULSE 87; RESP 16; TEMP 36.9; O2SAT 95; BMI 34.3
[2023-07-31 11:21] VITALS: BP 165/62; PULSE 67; O2SAT 95
--- NOTE | 2023-07-31 11:23 | XR_ITS ---
WS: [id number] Exam: XR chest 1V portable [id number] Date/Time of Exam: 07/31/2023 11:23 AM Reason For Exam: fever Comparison 05/21/2023. Lungs are clear and fully inflated. Heart size is normal. The mediastinum is normal in contour. Ather osclerosis of the aortic knob. Fusion hardware in the lower C-spine. XR/XR chest 1V portable [id number] IMPRESSION: 1. No acute process.
--- NOTE | 2023-07-31 11:28 | CT_ITS ---
WS: [id number] CT ABDOMEN PELVIS TECHNIQUE: Contrast-enhanced CT of the abdomen and pelvis with coronal and sagittal reformatted image s. CLINICAL INFORMATION: abd pain COMPARISON: 2020 DLP: 773.[address] scans at [facility] use at least one of these dose optimization techniques: automated e xposure control; mA and/or kV adjustment per patient size (includes targeted exams where dose is matc hed to clinical indication); or iterative reconstruction. FINDINGS: Prior hysterectomy. Prior cholecystectomy. Hepatomegaly. Diffuse fatty infiltration of the liver. Normal portal vein and splenic vein. Normal pa ncreas. Splenic artery calcification. Normal spleen. Tiny esophageal hernia. Lung bases are well aera suyapa. Adrenal glands are normal. Normal renal parenchymal enhancement. No hydronephrosis. A few small renal cysts. Pelvic phleboliths. Celiac and SMA are patent. Normal caliber abdominal aorta. Moderate aortic calcification. Sigmoid diverticulosis. No evidence of acute diverticulitis. A few diverticuli in the LEFT descending colon. Normal appendix. Mild RIGHT colon and cecal constipation. Tiny fat-containing umbilical hernia. No free fluid in the abdomen or pelvis. Slight anterolisthesis L3 on L4. CT/CT abdomen pelvis w con* [id number] IMPRESSION: 1. Mild RIGHT colon and cecal constipation. 2. Prior cholecystectomy and hysterectomy. 3. Small esophageal hernia. 4. No hydronephrosis in either kidney. 5. Normal caliber abdominal aorta. 6. Sigmoid diverticulosis. No evidence of acute diverticulitis. 7. Normal appendix.
--- NOTE | 2023-07-31 11:30 | W.ED.ABDPA2 ---
HPI - Abdominal Pain General: Chief Complaint: Abdominal Pain Stated Complaint: cough/ abd pain Time Seen by Provider: 07/31/23 11:22 Source: patient Mode of arrival: ambulatory Limitations: no limitations History of Present Illness: 77-year-old female who states that she had cough congestion for last 2 days states that she has had what she believes is a hernia for months states that with the cough she had some worsening abdominal pain mainly when she coughs. She denies any fever denies any vomiting denies any diarrhea. Associated Symptoms: Denies chills, diarrhea, dysuria, fever(s), nausea and vomiting Review of Systems Const: Denies: fever(s), chills, body aches or change in appetite ENMT: Denies: throat pain or dental pain Card: Denies: chest pain Resp: Reports: non-productive cough; Denies: dyspnea GI: Reports: abdominal pain; Denies: nausea, vomiting or diarrhea : Denies: dysuria Musc: Denies: neck pain or back pain Skin/Breast: Denies: rash Neuro: Denies: headache(s) PFSH ED PFSH: Medical History Vertigo Obesity Recurrent UTI Impacted cerumen of both ears Dementia Urolithiasis Left ureteral calculus Diabetes Cystitis cystica Surgical History History of laser assisted in situ keratomileusis History of lithotripsy History of neck surgery History of hysterectomy History of cholecystectomy History of appendectomy History of back surgery Family History Other Adopted Social History Smoking and tobacco/nicotine status: never used tobacco/nicotine Alcohol intake: never Substance/Drug Use: never Adopted: Yes Caregiver/support person: No Lives independently: No Household members: spouse Marital status: Number of children: 4 Number of grandchildren: 8 Current occupational status: retired 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 [employer] Current gender identity: Female Physical Exam Const: COMMON NORMALS: no acute distress, patient oriented x3 and healthy appearing HENMT: COMMON NORMALS: normocephalic and atraumatic HEAD & SCALP: normocephalic and atraumatic Eye: COMMON NORMALS: Equal, round and reactive pupils present and EOMs intact bilaterally PUPIL: Yes Equal, round and reactive pupils present Neck/C-Spine: COMMON NORMALS: full ROM and supple Chest: COMMONS NORMALS: normal inspection of the chest Resp: COMMON NORMALS: normal respiratory effort, No retractions, No use of accessory muscles and clear to auscultation bilaterally AUSCULTATION: clear to auscultation bilaterally Cardio: COMMON NORMALS: regular rate, regular rhythm and No murmurs present (Cardio) RATE: regular rate RHYTHM: regular rhythm GI: COMMON NORMALS: Normal to inspection, nondistended, normoactive bowel sounds present, Soft to palpation and no masses PALPATION: Yes Soft to palpation and Yes Tenderness to palpation present (GI) Details: RLQ Extremity: COMMON NORMALS: normal to inspection and full ROM Neuro: COMMON NORMALS: patient oriented x3, moves all extremities and no focal motor deficits Psych: COMMON NORMALS: mental status grossly normal, Normal thought process present and cooperative THOUGHT PROCESS: Normal thought process present Skin: COMMON NORMALS: no rashes or lesions noted and no wounds GENERAL SKIN EXAM: no rashes or lesions noted Course Vital Signs: Vital signs: Vital Signs Temperature 98.4 F 07/31/23 11:12 Pulse Rate 67 07/31/23 13:43 Respiratory Rate 16 07/31/23 11:12 Blood Pressure 113/78 07/31/23 13:43 Pulse Oximetry 98 07/31/23 13:43 Oxygen Delivery Me thod Room Air 07/31/23 13:43 MDM - Abdominal Pain Medical Decision Making Patient presents here with abdominal pain blood work CT scan here are all normal she stable for discharge she is follow-up with PCP return if worsening. Medical Records I reviewed the patient's medical records. Lab Data I reviewed the patient's lab results. 07/31/23 11:36 07/31/23 11:36 Labs/Radiology: Radiology Impressions Chest X-Ray 07/31/23 11:23 IMPRESSION: 1. No acute process. Abdomen/Pelvis CT 07/31/23 11:28 IMPRESSION: 1. Mild RIGHT colon and cecal constipation. 2. Prior cholecystectomy and hysterectomy. 3. Small esophageal hernia. 4. No hydronephrosis in either kidney. 5. Normal caliber abdominal aorta. 6. Sigmoid diverticulosis. No evidence of acute diverticulitis. 7. Normal appendix. Laboratory Results WBC 8.90 10^3/uL (3.29-11.43) 07/31/23 11:36 RBC 4.95 10^6/uL (3.85-5.65) 07/31/23 11:36 Hgb 14.40 g/dL (11.27-16.99) 07/31/23 11:36 Hct 43.5 % (36-47) 07/31/23 11:36 MCV 87.9 fl (85-98) 07/31/23 11:36 MCH 29.1 pg (27-33) 07/31/23 11:36 MCHC 33.1 g/dL (30-55) 07/31/23 11:36 RDW 13.3 % (12.1-15.1) 07/31/23 11:36 Plt Count 264 10^3/cmm (157-399) 07/31/23 11:36 MPV 10.6 fL (7.4-10.4) H 07/31/23 11:36 Neut % (Auto) 67.6 % 07/31/23 11:36 Lymph % (Auto) 18.9 % 07/31/23 11:36 [place] % (Auto) 7.2 % 07/31/23 11:36 Eos % (Auto) 5.2 % 07/31/23 11:36 Baso % (Auto) 0.9 % 07/31/23 11:36 Neut # (Auto) 6.02 10^3/uL (1.8-7.7) 07/31/23 11:36 Lymph # (Auto) 1.7 10^3/uL (0.8-4.8) 07/31/23 11:36 [place] # (Auto) 0.6 10^3/uL (0.2-0.9) 07/31/23 11:36 Eos # (Auto) 0.5 10^3/uL (0.0-0.8) 07/31/23 11:36 Baso # (Auto) 0.1 10^3/uL (0.0-0.1) 07/31/23 11:36 Nucleated RBC % (auto) 0 % 07/31/23 11:36 Nucleated RBCs # 0.0 /100WBC 07/31/23 11:36 Sodium 141 mmol/L (136-145) 07/31/23 11:36 Potassium 3.4 mmol/L (3.5-5.1) L 07/31/23 11:36 Chloride 106 mmol/L (98-107) 07/31/23 11:36 Carbon Dioxide 23 mmol/L (22-29) 07/31/23 11:36 Anion Gap 15.4 (5-19) 07/31/23 11:36 BUN 19 mg/dL (8-23) 07/31/23 11:36 Creatinine 0.5 mg/dL (0.5-0.9) 07/31/23 11:36 GFR Calculation Not Reportable 07/31/23 11:36 Glucose 111 mg/dL (65-115) 07/31/23 11:36 Calculated Osmolality 295 mOsm/kg (285-295) 07/31/23 11:36 Calcium 9.1 mg/dL (8.5-10.5) 07/31/23 11:36 Total Bilirubin 0.4 mg/dL (0.15-1.2) 07/31/23 11:36 AST 14 U/L (0-32) 07/31/23 11:36 ALT 15 U/L (0-33) 07/31/23 11:36 Alkaline Phosphatase 80 U/L (35-105) 07/31/23 11:36 Total Protein 6.8 g/dL (6.6-8.7) 07/31/23 11:36 Albumin 3.8 g/dL (3.5-5.2) 07/31/23 11:36 Globulin 3.0 g/dL (1.3-4.6) 07/31/23 11:36 Lipase 34 U/L (13-60) 07/31/23 11:36 Urine Color Yellow (Yellow) 07/31/23 11:52 Urine Appearance Clear (CLEAR) 07/31/23 11:52 Urine pH 5 (5-7) 07/31/23 11:52 Ur Specific [place] 1.015 (1.005-1.030) 07/31/23 11:52 Urine Protein Trace (Negative) 07/31/23 11:52 Urine Glucose (UA) Norm (Normal) 07/31/23 11:52 Urine Ketones 1+ (Negative) H 07/31/23 11:52 Urine Blood Neg (Negative) 07/31/23 11:52 Urine Nitrate Negative (Negative) 07/31/23 11:52 Urine Bilirubin Neg (Negative) 07/31/23 11:52 Urine Urobilinogen Norm mg/dL (Negative) 07/31/23 11:52 Ur Leukocyte Esterase Trace (Negative) H 07/31/23 11:52 Urine RBC 0-4 /hpf (0-2) H 07/31/23 11:52 Urine WBC 25-40 /hpf (0-5) H 07/31/23 11:52 Ur Squamous Epith Cells None /hpf (0-5) 07/31/23 11:52 Calcium Oxalate Crystal 15-25 /hpf H 07/31/23 11:52 Amorphous Sediment Not Reportable 07/31/23 11:52 Urine Bacteria None /hpf (NONE) 07/31/23 11:52 Urine Mucus Trace /hpf 07/31/23 11:52 All radiology interpretation(s) finalized by discharge Discharge Plan Discharge Patient Disposition: Home Clinical Impression: Abdominal pain Condition: Stable Prescriptions: No Action memantine 5 mg tablet 5 mg PO BID Qty: 180 0RF (DME) wheeled walker See Rx Instructions .Route .MEDSUPPLY Qty: 1 0RF Rx Instructions: As directed pioglitazone [Actos] 45 mg tablet 45 mg PO DAILY Qty: 60 0RF (DME) Accu-Chek Samira Plus test strp Strip See Rx Instructions .ROUTE .COMPLEX Qty: 200 0RF Dose Instruction: USE 1 STRIP TO CHECK GLUCOSE ONCE DAILY TO TWICE DAILY Rx Instructions: USE 1 STRIP TO CHECK GLUCOSE ONCE DAILY TO TWICE DAILY donepezil 5 mg tablet 5 mg PO DAILY fluticasone propionate 50 mcg/actuation spray,suspension 1 spray INTRANASAL DAILY PRN (Reason: ALLERGIES) lisinopril 20 mg tablet 20 mg PO DAILY Qty: 30 0RF potassium chloride 10 mEq tablet extended release 10 meq PO DAILY levothyroxine 175 mcg tablet 175 mcg PO DAILY gabapentin 300 mg capsule 300 mg PO BID ibuprofen 600 mg tablet 600 mg PO DAILY PRN (Reason: Pain) Paz Colindres 1 tab PO DAILY doxycycline hyclate 100 mg capsule 100 mg PO BID amlodipine 10 mg tablet 10 mg PO DAILY benzonatate 100 mg capsule 100 mg PO TID PRN (Reason: Cough) sertraline 50 mg tablet 50 mg PO DAILY cyclobenzaprine 5 mg tablet 5 mg PO DAILY PRN (Reason: Muscle Pain) Januvia 100 mg tablet 100 mg PO DAILY Discharge Orders: Discharge ED (Routine); Ordered 07/31/23 Ordered By: Freedom Pulido Referrals: Pablo Yang DO [Physician] - 1-3 days Tali Luke FNP [Primary Care Provider] - Discharge Diet: Advance as tolerated Discharge Activity: Resume usual activity Patient Instructions: Abdominal Pain (ED) Coding Level of Care Code ED Manager Ui for Inna Christian
[2023-07-31 11:52] LABS: Basophils # 0.1 10^3/uL (0.0-0.1); Basophils % 0.9 %; Eosinophils # 0.5 10^3/uL (0.0-0.8); Eosinophils % 5.2 %; Hematocrit 43.5 % (36-47); Lymphocytes # 1.7 10^3/uL (0.8-4.8); Lymphocytes % 18.9 %; Mean Corpuscular HGB Conc 33.1 g/dL (30-55); Mean Corpuscular Hemoglobin 29.1 pg (27-33); Mean Corpuscular Volume 87.9 fl (85-98); Mean Platelet Volume 10.6 fL (7.4-10.4); Monocytes # 0.6 10^3/uL (0.2-0.9); Monocytes % 7.2 %; Neutrophils # 6.02 10^3/uL (1.8-7.7); Neutrophils % 67.6 %; Nucleated Red Blood Cells % 0 %; Platelet Count 264 10^3/cmm (157-399); Red Blood Count 4.95 10^6/uL (3.85-5.65); Red Cell Distribution Width 13.3 % (12.1-15.1)
[2023-07-31 12:04] LABS: Alanine Aminotransferase 15 U/L (0-33); Albumin Level 3.8 g/dL (3.5-5.2); Alkaline Phosphatase 80 U/L (35-105); Anion Gap 15.4 (5-19); Aspartate Amino Transferase 14 U/L (0-32); Blood Urea Nitrogen 19 mg/dL (8-23); Calcium 9.1 mg/dL (8.5-10.5); Carbon Dioxide 23 mmol/L (22-29); Chloride 106 mmol/L (98-107); Creatinine Clr Calc Pharmacy 71.6891; Glucose 111 mg/dL (65-115); Lipase 34 U/L (13-60); Osmolality Calculated 295 mOsm/kg (285-295); Potassium 3.4 mmol/L (3.5-5.1); Sodium 141 mmol/L (136-145); Total Bilirubin 0.4 mg/dL (0.15-1.2); Total Protein 6.8 g/dL (6.6-8.7)
[2023-07-31 12:10] VITALS: BP 165/62; PULSE 67; O2SAT 96
[2023-07-31 12:21] LABS: Add Urine Microscopic? YES; Bilirubin Urine Neg (Negative); Blood Urine Neg (Negative); Glucose Urine UA Norm (Normal); Ketones Urine 1+ (Negative); Leukocyte Esterase Urine Trace (Negative); Nitrate Urine Negative (Negative); Protein Urine Trace (Negative); Specific Gravity, Urine 1.015 (1.005-1.030); Urine Appearance Clear (CLEAR); Urine Color Yellow (Yellow); Urobilinogen Urine Norm (Negative); pH Urine 5 (5-7)
--- NOTE | 2023-07-31 12:25 | PC.PHAR ---
PT STATES HAS ONLY TAKEN DOXYCYCLINE 100MG AND BENZONATATE 100MG TODAY.
[2023-07-31 12:34] LABS: RBC Urine 0-4 /hpf (0-2); WBC Urine 25-40 /hpf (0-5)
[2023-07-31 12:35] LABS: Add Urine Culture? No; Calcium Oxalate Crystals Urine 15-25 /hpf; Mucus Urine TRACE /hpf
[2023-07-31] MEDS: iohexol 350 mg/mL 500 mL Btl (per mL) IV (12:55)
[2023-07-31 13:43] VITALS: BP 113/78; PULSE 67; O2SAT 98
[2023-07-31 14:54] VITALS: BP 113/78; PULSE 67; RESP 16; TEMP 36.9; O2SAT 98
== END 2023-07-31 14:55 | disposition home or self-care (01) ==
PROVIDERS: Emergency Provider Emergency Medicine; PCP Nurse Practitioner Family
DX: R10.9 Unspecified abdominal pain (principal); F03.90 Unspecified dementia, unspecified severity, without behavioral disturbance, psychotic disturbance, mood disturbance, and anxiety; E11.9 Type 2 diabetes mellitus without complications; Z87.440 Personal history of urinary (tract) infections
CPT/HCPCS: 36415; 71045; 74177; 80053; 81001; 83690; 85025; 99285; Q9967

== ENCOUNTER → 2023-09-16 07:33 | Outpatient (BNVA) | payer MEDICARE, OTHER, SELFPAY | PROVIDERS: PCP Nurse Practitioner Family; Visit Provider Psychiatry & Neurology Neurology | DX: F03.90 Unspecified dementia, unspecified severity, without behavioral disturbance, psychotic disturbance, mood disturbance, and anxiety (principal); G45.9 Transient cerebral ischemic attack, unspecified | CPT/HCPCS: 95813; 95819 ==

== ENCOUNTER → 2023-10-09 10:00 | Outpatient (BNVA) | payer MEDICARE, OTHER, SELFPAY | PROVIDERS: PCP Nurse Practitioner Family; Visit Provider Psychiatry & Neurology Neurology | DX: G31.84 Mild cognitive impairment of uncertain or unknown etiology (principal) | CPT/HCPCS: 99212 ==

== ENCOUNTER 2023-10-13 11:40 | Outpatient (CLI) | payer MEDICARE, OTHER, SELFPAY ==
[2023-10-13 13:01] LABS: Estmated Average Glucose 137; Hemoglobin A1C 6.4 % (4.0-6.0)
[2023-10-13 13:19] LABS: Alanine Aminotransferase 17 U/L (0-33); Albumin Level 4.1 g/dL (3.5-5.2); Alkaline Phosphatase 103 U/L (35-105); Aspartate Amino Transferase 17 U/L (0-32); Blood Urea Nitrogen 17 mg/dL (8-23); Calcium 8.6 mg/dL (8.5-10.5); Carbon Dioxide 25 mmol/L (22-29); Chloride 103 mmol/L (98-107); Chol HDL Ratio 6.38 mg/dL (0.0-4.40); Cholesterol 236 mg/dL (0-200); Free T4 Free Thyroxine 1.18 ng/dL (0.82-1.77); Globulin 3.3 g/dL (1.3-4.6); Glucose 106 mg/dL (65-115); HDL Cholesterol 37 mg/dL (60-100); LDL Cholesterol Calculated 160 mg/dL (50-129); LDL HDL Ratio 4.32 RATIO (0.00-3.22); Osmolality Calculated 292 mOsm/kg (285-295); Sodium 140 mmol/L (136-145); Thyroid Stimulating Hormone 1.59 uIU/mL (0.27-4.20); Total Bilirubin 0.5 mg/dL (0.15-1.2); Total Protein 7.4 g/dL (6.6-8.7); Triglycerides 197 mg/dL (0-150)
[2023-10-13 15:33] LABS: Creatinine Urine, Random 79 mg/dL (28-217); Microalbum Creatinine Ratio Ur 25 mg/dL (0-20); Microalbumin Random Urine 2 ug/dL (0-20)
== END 2023-10-13 11:41 | disposition home or self-care (01) ==
LOC: LAB 11:43
PROVIDERS: PCP Nurse Practitioner Family; Visit Provider Internal Medicine
DX: E11.65 Type 2 diabetes mellitus with hyperglycemia (principal); E03.9 Hypothyroidism, unspecified
CPT/HCPCS: 36415; 80053; 80061; 82044; 83036; 84439; 84443

== ENCOUNTER → 2023-10-14 10:39 | Outpatient (BNVA) | payer MEDICARE, OTHER, SELFPAY | PROVIDERS: PCP Nurse Practitioner Family; Visit Provider Internal Medicine | DX: E11.65 Type 2 diabetes mellitus with hyperglycemia (principal); E03.9 Hypothyroidism, unspecified; E11.40 Type 2 diabetes mellitus with diabetic neuropathy, unspecified; E11.21 Type 2 diabetes mellitus with diabetic nephropathy; Z79.890 Hormone replacement therapy; Z79.84 Long term (current) use of oral hypoglycemic drugs | CPT/HCPCS: 99214 ==

== ENCOUNTER → 2023-12-16 08:30 | Outpatient (BNVA) | payer MEDICARE, OTHER, SELFPAY | PROVIDERS: PCP Nurse Practitioner Family; Visit Provider Student in an Organized Health Care Education/Training Program | DX: M65.341 Trigger finger, right ring finger (principal); M65.331 Trigger finger, right middle finger; M79.641 Pain in right hand | CPT/HCPCS: 73130; 99214 ==

== ENCOUNTER → 2024-03-22 10:09 | Outpatient (BNVA) | payer MEDICARE, OTHER, SELFPAY | PROVIDERS: PCP Family Medicine; Visit Provider Family Medicine | DX: E11.9 Type 2 diabetes mellitus without complications (principal); E78.00 Pure hypercholesterolemia, unspecified; I10 Essential (primary) hypertension; K76.0 Fatty (change of) liver, not elsewhere classified; R05.8 Other specified cough; T46.4X5A Adverse effect of angiotensin-converting-enzyme inhibitors, initial encounter; N39.0 Urinary tract infection, site not specified; M25.551 Pain in right hip; M25.552 Pain in left hip | CPT/HCPCS: 80053; 83036; 85025 ==

== ENCOUNTER → 2024-04-07 14:33 | Outpatient (BNVA) | payer MEDICARE, OTHER, SELFPAY | PROVIDERS: PCP Family Medicine; Visit Provider Psychiatry & Neurology Neurology | DX: G31.84 Mild cognitive impairment of uncertain or unknown etiology (principal) | CPT/HCPCS: 36415; 83520; 99212 ==

== ENCOUNTER 2024-04-14 11:06 | Outpatient (CLI) | payer MEDICARE, OTHER, SELFPAY ==
--- NOTE | 2024-04-14 11:00 | MR_ITS ---
WS: [id number] MRI BRAIN WITH AND WITHOUT CONTRAST HISTORY: F03.90 - Unspecified dementia, unspecified severity, with... COMPARISON: 07/21/2023 TECHNIQUE: Multiplanar imaging performed through the brain with MultiHance 15 ml's IV. No acute infarcts are seen. Hernandez-white matter differentiation is well preserved. Moderate volume loss in the cerebrum and cerebellum. Mild bilateral hippocampal atrophy. No prior infarct. Minimal small vessel disease. No susceptibility artifacts or prior lacunar infarcts. Mildly prominent ventricles and extra-axial spaces on the basis of central and peripheral atrophy. Empty sella turcica. Postcontrast images are negative for masses or vascular malformations. Dural venous sinuses are normal. Paranasal sinuses: Well aerated with no significant disease. Mastoid air cells: Normal. Calvarium and scalp: Normal. MR/MR head wo/w con [id number] IMPRESSION: 1. No acute infarct or hemorrhage. 2. Moderate cerebral and cerebellar atrophy with minimal small vessel disease. 3. Mild hippocampal atrophy. 4. No enhancing masses or vascular malformations.
[2024-04-14] MEDS: gadobenate dimeglumine 20 mL vial 15 ML IV (11:52)
== END 2024-04-14 11:07 | disposition home or self-care (01) ==
LOC: RAD 11:06
PROVIDERS: PCP Family Medicine; Visit Provider Psychiatry & Neurology Neurology
DX: F03.90 Unspecified dementia, unspecified severity, without behavioral disturbance, psychotic disturbance, mood disturbance, and anxiety (principal); G43.909 Migraine, unspecified, not intractable, without status migrainosus; G31.89 Other specified degenerative diseases of nervous system; R93.0 Abnormal findings on diagnostic imaging of skull and head, not elsewhere classified
CPT/HCPCS: 70553; A9577

== ENCOUNTER → 2024-04-19 13:42 | Outpatient (BNVA) | payer MEDICARE, OTHER, SELFPAY | PROVIDERS: PCP Family Medicine; Visit Provider Nurse Practitioner Family | DX: L57.8 Other skin changes due to chronic exposure to nonionizing radiation (principal); L82.1 Other seborrheic keratosis; L81.4 Other melanin hyperpigmentation; D22.4 Melanocytic nevi of scalp and neck; L92.0 Granuloma annulare; L23.9 Allergic contact dermatitis, unspecified cause | CPT/HCPCS: 99214 ==

== ENCOUNTER → 2024-05-07 10:29 | Outpatient (BNVA) | payer MEDICARE, OTHER, SELFPAY | PROVIDERS: PCP Family Medicine; Visit Provider Nurse Practitioner Family | DX: L23.9 Allergic contact dermatitis, unspecified cause (principal); L82.1 Other seborrheic keratosis; L92.0 Granuloma annulare | CPT/HCPCS: 11900; 99213 ==

== ENCOUNTER → 2024-06-15 15:39 | Outpatient (BNVA) | payer MEDICARE, OTHER, SELFPAY | PROVIDERS: PCP Family Medicine; Visit Provider Psychiatry & Neurology Neurology | DX: G31.84 Mild cognitive impairment of uncertain or unknown etiology (principal) | CPT/HCPCS: 99212 ==

== ENCOUNTER 2024-08-03 12:38 | Outpatient (CLI) | payer MEDICARE, OTHER, SELFPAY ==
--- NOTE | 2024-08-03 12:45 | XR_ITS ---
WS: [id number] XR chest 2V* [id number] REASON FOR EXAM: cough X 5 months FINDINGS: The chest is unchanged compared to 07/31/2023. Calcification of the aortic arch with no significant tortuosity or ectasia. Mild cardiomegaly. Calcified granulomas disease in both hemithoraces. No acute pulmonary parenchymal or pleural abnormality. Moderate degenerative spondylosis in the mid and lower thoracic spine. XR/XR chest 2V* [id number] IMPRESSION: Stable chest without acute abnormality.
== END 2024-08-03 12:39 | disposition home or self-care (01) ==
LOC: RAD 12:42
PROVIDERS: PCP Family Medicine; Visit Provider Family Medicine
DX: R05.3 Chronic cough (principal); I70.0 Atherosclerosis of aorta; I51.7 Cardiomegaly; J84.10 Pulmonary fibrosis, unspecified; M47.894 Other spondylosis, thoracic region
CPT/HCPCS: 71046

== ENCOUNTER 2024-08-06 15:22 | Emergency (ER) | payer MEDICARE, OTHER, SELFPAY ==
--- NOTE | 2024-08-06 15:30 | PC.NURSE ---
THIS NURSE WAS NOTIFIED OF STROKE LIKE SYMPTOMS UP FRONT. THIS NURSE PERFORMED NIH SCALE ON PT AND ASKED SOME HISTORY. PT STATES SHE HAD DEVELOPED A RIGHT SIDED HEADACHE TODAY AND HAS ALSO HAD SOME LEFT SIDED NUMBNESS. WHEN PT WAS ASKED HOW LONG NUMBNESS ON THE LEFT SIDE HAD BEEN GOING ON, PT STATED OH FOR WEEKS. THIS NURSE CLARIFIED THAT THE NUMBNESS ON THE LEFT SIDE HAD BEEN GOING ON FOR WEEKS AND PT CONFIRMED.
[2024-08-06 15:48] VITALS: BP 163/65; PULSE 77; TEMP 36.8; O2SAT 94; BMI 35.1
--- NOTE | 2024-08-06 16:52 | XRR_ITS ---
PROCEDURE INFORMATION: Exam: XR Chest Exam date and time: 08/06/2024 5:17 PM Age: 78 years old Clinical indication: Other: Altered mental status; Additional info: Altered mental status resolved TECHNIQUE: Imaging protocol: Radiologic exam of the chest. Views: 1 view. COMPARISON: CR XR chest 2V* [id number] 05/06/2024 13:05 FINDINGS: Lungs: Soft tissues are prominent somewhat challenging to penetration. However, lungs are clear with no infiltrates to be appreciated. No consolidation. Pleural spaces: Trace blunting of the left costophrenic angle. No pneumothorax. Heart/Mediastinum: Unremarkable. No cardiomegaly. Bones/joints: Plate and screws are seen over the lower C5 through C7 cervical region. Ornamental radiopaque necklace artifact is noted over the neck area. Also observed is mild widening of the right AC joint similar/unchanged in comparison to a prior study from 07/31/2023. XR/XR chest 1V portable [id number] IMPRESSION: 1. No acute portable findings. 2. Hypoaeration is felt to account for trace blunting of the left costophrenic angle.
--- NOTE | 2024-08-06 16:52 | CTR_ITS ---
PROCEDURE INFORMATION: Exam: CT Head Without Contrast Exam date and time: 08/06/2024 5:27 PM Age: 78 years old Clinical indication: Pain; Altered mental status/memory loss; Confusion or disorientation; Headache not specified; Additional info: Altered mental status resolved current headache TECHNIQUE: Imaging protocol: Computed tomography of the head without contrast. Radiation optimization: All CT scans at this facility use at least one of these dose optimization techniques: automated exposure control; mA and/or kV adjustment per patient size (includes targeted exams where dose is matched to clinical indication); or iterative reconstruction. COMPARISON: MR head wo/w con [id number] 02/01/2025 11:22 RADIATION DOSE METRICS: Total DLP (mGy-cm): 1091.68 FINDINGS: Brain: Mild patchy decreased density seen in the bilateral periventricular and deep white matter of the cerebral hemispheres. The midline is intact. Beam hardening artifact obscures resolution through the posterior fossa structures. No hemorrhage. Trace atherosclerotic calcifications are seen in the vertebrobasilar system and supraclinoid ICA vessels. No mass effect. Lipomatous density seen along the falx cerebri are present and in the range of normal. Cerebral ventricles: Ventricles demonstrate normal size shape and configuration and are felt to be in proportion to the degree of widening of the sulci, sylvian fissures and basilar cisterns. Paranasal sinuses: Visualized sinuses are unremarkable. No fluid levels. Mastoid air cells: Visualized mastoid air cells are well aerated. Orbital cavities: Status post bilateral cataract surgery. Bones: Slight hyperostosis frontalis interna is noted. This is in the range of normal. No acute fracture. Soft tissues: Unremarkable. CT/CT head wo con* [id number] IMPRESSION: 1. No acute intracranial head CT findings identified. 2. Moderate atrophy/involutional changes of aging with mild components of chronic small-vessel disease.
[2024-08-06] MEDS: sodium chloride 0.9% 500 ML IV (17:03)
[2024-08-06 17:04] LABS: Basophils # 0.1 10^3/uL (0.0-0.1); Basophils % 0.8 %; Eosinophils # 0.8 10^3/uL (0.0-0.8); Eosinophils % 6.7 %; Lymphocytes # 2.2 10^3/uL (0.8-4.8); Lymphocytes % 19.9 %; Mean Corpuscular HGB Conc 32.7 g/dL (30-55); Mean Corpuscular Hemoglobin 29.9 pg (27-33); Mean Corpuscular Volume 91.5 fl (85-98); Mean Platelet Volume 10.6 fL (7.4-10.4); Monocytes # 0.6 10^3/uL (0.2-0.9); Monocytes % 5.5 %; Neutrophils # 7.51 10^3/uL (1.8-7.7); Neutrophils % 66.8 %; Nucleated Red Blood Cells % 0 %; Platelet Count 294 10^3/cmm (157-399); Red Blood Count 4.92 10^6/uL (3.85-5.65); Red Cell Distribution Width 13.8 % (12.1-15.1); White Blood Count 11.24 10^3/uL (3.29-11.43)
[2024-08-06] MEDS: acetaminophen 1,000 MG/100 ML PIGGYBACK 400 MG IV (17:04)
--- NOTE | 2024-08-06 17:08 | ED_ITS ---
Documented by User: Bean Gonzalez 08/06/24 17:35 HPI - Headache 2 General: Chief Complaint: Headache Stated Complaint: strokelike symptoms Time Seen by Provider: 08/06/24 16:19 History of Present Illness: 78-year-old female presents to the emerg ency department from urgent care chief complaint of the 2-week intermittent symptoms of headache with some slurred speech about 3 hours ago she did have some numbness to the left side of her body patient Dors of the headaches behind her right eye patient denies any history of any chronic migraines though patient reports no ibuprofen with her chest pain reports no cardiac history does report a history of high blood pressure and high cholesterol patient reports all of her symptoms have been resolved. She does endorse her blood pressure was elevated prior to arrival. Patient is already requesting to be discharged home pending a workup, the patient remained in stable condition at this time Associated symptoms: Deny chest pain, fever(s), malaise, nausea, rash or vomiting Related Data Home Medications ?Medication ?Instructions ?Recorded ?Confirmed Paz Colindres 1 tab PO DAILY 07/02/2308/25 Previous Rx's ?Medication ?Instructions ?Recorded wheeled walker #1 ea 01/03/23 amlodipine 10 mg tablet 10 mg PO DAILY #90 tabs 03/27 fluticasone propionate 50 1 spray intranasal DAILY PRN 06/01/24 mcg/actuation nasal ALLERGIES #16 grams spray,suspension levothyroxine 175 mcg tablet 175 mcg PO DAILY #90 tabs 06/01/24 potassium chloride 10 mEq See Rx Instructions .Route 0 06/01/24 tablet,extended release .COMPLEX #90 tabs sertraline 50 mg tablet 50 mg PO DAILY anxiety #90 t abs 06/01/24 sitagliptin phosphate 100 mg 100 mg PO DAILY #90 tabs 06/01/24 tablet (Januvia) gabapentin 300 mg capsule 300 mg PO TID 90 days #270 c aps 06/10/24 ibuprofen 600 mg tablet 600 mg PO DAILY PRN Pain #90 tabs 07/20/24 losartan 100 mg tablet 100 mg PO DAILY #90 tabs nitrofurantoin macrocrystal 100 mg 100 mg PO .qpm PRN uti #1 cap 07/20/24 capsule blood sugar diagnostic (Accu-Chek #100 ea 07/27/24 Guide test strips) blood-glucose meter (Accu-Chek #1 ea 07/27/24 Guide Me Glucose Meter) Allergies Allergy/AdvReac Type Severity Reaction Status Date / Time adhesive tape Allergy ADR-Itching Verified 08/06/24 15:56 codeine Allergy ADR-Nausea Verified 08/06/24 15:56 Review of Systems 2 General: Reports: 10 or more systems reviewed and unremarkable except in HPI and below Const: Denies: fever(s), chills, fatigue or malaise Eyes: Denies: change in vision or blurry vision Card: Denies: chest pain or palpitations Resp: Denies: dyspnea or productive cough GI: Denies: abdominal pain, nausea or vomiting : Denies: flank pain Musc: Denies: extremity pain or extremity swelling Skin/Breast: Denies: rash or pruritus Neuro: Reports: headache(s) and other (Mild intermittent dizziness earlier reported left-sided weakness left arm i) Psych: Denies: anxiety or depression Javier/Lymph: Denies: easy bleeding All/Imm: Denies: urticaria, throat swelling or facial swelling PFSH ED 2 PFSH: Medical History Hypertension Generalized anxiety disorder sertraline beneficial per her report NAFLD (nonalcoholic fatty liver disease) on CT 2023 Hypercholesterolemia not on statin; won't start even though has diabetes b/c she has progressive dementia Controlled type 2 diabetes mellitus, without long-term current use of insulin PCP managing now Degenerative disc disease, lumbar takes cyclobenzaprene 5mg at night only if needed and ibuprofen only if needed Diabetic neuropathy takes gabapentin only at night and reports it helps Hypothyroidism Vertigo Obesity Recurrent UTI has seen DR. Stevens urologist in past; uses macrobid prn Dementia seeing neuro DR. Blanchard; has had work up; failed namenda/aricept Urolithiasis Left ureteral calculus Cystitis cystica Surgical History Hx of elbow surgery left History of laser assisted in situ keratomileusis History of lithotripsy History of neck surgery History of hysterectomy with BSO; done for bleeding; no cancer History of cholecystectomy History of appendectomy History of back surgery Family History Other Adopted Social History Smoking and tobacco/nicotine status: never used tobacco/nicotine Alcohol intake: never Substance/Drug Use: never Adopted: Yes Caregiver/support person: No Lives independently: No Household members: spouse Marital status: Number of children: 3 Number of grandchildren: 8 Highest education level completed: High School Graduate Current occupational status: retired 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 [employer] Current gender identity: Female Physical Exam 2 Const: COMMON NORMALS: no acute distress, patient oriented x3 and healthy appearing (Somewhat anxious appearing however appears in no acute distress) O THER: No focal neurodeficits appreciated somewhat anxious appearing HENMT: COMMON NORMALS: normocephalic and atraumatic HEAD & SCALP: n ormocephalic and atraumatic Eye: COMMON NORMALS: Equal, round and reactive pupils present and EOMs intact bilaterally PUPIL: Yes Equal, round and reactive pupils present Neck/C-Spine: COMMON NORMALS: full ROM, supple and no JVD Lymph: LYMPHATIC: no lymphadenopathy noted Chest: COMMONS NORMALS: normal inspection of the chest and normal palpation of entire chest wall Resp: COMMON NORMALS: normal respiratory effort, No retractions and clear to auscultation bilaterally EFFORT & INSPECTION: Yes able to speak in complete sentences and Yes symmetric chest movement AUSCULTATION: clear to auscultation bilaterally Cardio: COMMON NORMALS: no JVD, regular rate and regular rhythm RATE: r egular rate RHYTHM: regular rhythm GI: COMMON NORMALS: Normal to inspection, nondistended, normoactive bowel sounds present, Soft to palpation and non-tender INSPECTION: Yes normal to inspection PALPATION: Yes Soft to palpation : COMMON NORMALS: Yes no CVA tenderness BLADDER/KIDNEY EXAM: Yes no CVA tenderness Back/Pelvis: COMMON NORMALS: no CVA tenderness Extremity: COMMON NORMALS: normal to inspection and full ROM Neuro: COMMON NORMALS: patient oriented x3, CN's II-XII intact bilaterally, moves all extremities and no focal motor deficits Psych: COMMON NORMALS: mental status grossly normal, Normal thought process present, cooperative and normal affect THOUGHT PROCESS: Normal thought process present Skin: COMMON NORMALS: no rashes or lesions noted GENERAL SKIN EXAM: no rashes or lesions noted Course 2 Vital Signs: Vital signs: Vital Signs Temperature 98.3 F 08/06/24 15:48 Pulse Rate 77 08/06/24 15:48 Blood Pressure 163/65 08/06/24 15:48 Pulse Oximetry 94 08/06/24 15:48 Oxygen Delivery Me thod Room Air 08/06/24 15:48 MDM - Headache Medical Decision Making Due to patient's symptoms and condition lab work and imaging will be obtained will continue to follow current blood pressure is somewhat elevated is noted to be at 140s over 106 we will continue to follow this may be somewhat blood pressure related. Patient Dors is all the symptoms she had previously of this is resolved she does endorse having a 2-week history of this progressively intermittently due to this patient does fall out of the window for any being in stroke activation for any additional management will continue to follow This patient was signed out to my colleague Dr. Hill at 1800 currently waiting on lab work imaging to result patient was provided to single dose hydralazine for her hypertension. Patient's symptoms have thus resolved will continue to follow Lab Data 08/06/24 16:14 08/06/24 16:14 Radiology Impressions Chest X-Ray 08/06/24 16:52 IMPRESSION: 1. No acute portable findings. 2. Hypoaeration is felt to account for trace blunting of the left costophrenic angle. Head CT 08/06/24 16:52 IMPRESSION: 1. No acute intracranial head CT findings identified. 2. Moderate atrophy/involutional changes of aging with mild components of chronic small-vessel disease. Laboratory Results WBC 11.24 10^3/uL (3.29-11.43) 08/06/24 16:14 RBC 4.92 10^6/uL (3.85-5.65) 08/06/24 16:14 Hgb 14.70 g/dL (11.27-16.99) 08/06/24 16:14 Hct 45.0 % (36-47) 08/06/24 16:14 MCV 91.5 fl (85-98) 08/06/24 16:14 MCH 29.9 pg (27-33) 08/06/24 16:14 MCHC 32.7 g/dL (30-55) 08/06/24 16:14 RDW 13.8 % (12.1-15.1) 08/06/24 16:14 Plt Count 294 10^3/cmm (157-399) 08/06/24 16:14 MPV 10.6 fL (7.4-10.4) H 08/06/24 16:14 Neut % (Auto) 66.8 % 08/06/24 16:14 Lymph % (Auto) 19.9 % 08/06/24 16:14 Wilkes % (Auto) 5.5 % 08/06/24 16:14 Eos % (Auto) 6.7 % 08/06/24 16:14 Baso % (Auto) 0.8 % 08/06/24 16:14 Neut # (Auto) 7.51 10^3/uL (1.8-7.7) 08/06/24 16:14 Lymph # (Auto) 2.2 10^3/uL (0.8-4.8) 08/06/24 16:14 Wilkes # (Auto) 0.6 10^3/uL (0.2-0.9) 08/06/24 16:14 Eos # (Auto) 0.8 10^3/uL (0.0-0.8) 08/06/24 16:14 Baso # (Auto) 0.1 10^3/uL (0.0-0.1) 08/06/24 16:14 Nucleated RBC % (auto) 0 % 08/06/24 16:14 Nucleated RBCs # 0.0 /100WBC 08/06/24 16:14 Sodium 143 mmol/L (136-145) 08/06/24 16:14 Potassium 3.9 mmol/L (3.5-5.1) 08/06/24 16:14 Chloride 102 mmol/L (98-107) 08/06/24 16:14 Carbon Dioxide 25 mmol/L (22-29) 08/06/24 16:14 Anion Gap 19.9 (5-19) H 08/06/24 16:14 BUN 15 mg/dL (8-23) 08/06/24 16:14 Creatinine 0.7 mg/dL (0.5-0.9) 08/06/24 16:14 GFR Calculation Not Reportable 08/06/24 16:14 Glucose 185 mg/dL (65-115) H 08/06/24 16:14 Calculated Osmolality 302 mOsm/kg (285-295) H 08/06/24 16:14 Calcium 9.7 mg/dL (8.5-10.5) 08/06/24 16:14 Total Bilirubin 0.3 mg/dL (0.15-1.2) 08/06/24 16:14 AST 13 U/L (0-32) 08/06/24 16:14 ALT 16 U/L (0-33) 08/06/24 16:14 Alkaline Phosphatase 96 U/L (35-105) 08/06/24 16:14 Troponin T Baseline 7 ng/L (0-10) 08/06/24 16:14 Troponin T 120 Minute 7.58 ng/L (0-10) 08/06/24 17:58 Delta Troponin T 0.58 ABS# (0-10) 08/06/24 17:58 C-Reactive Protein 9.7 mg/L (0.0-4.9) H 08/06/24 16:14 NT-Pro-B Natriuret Pep 81 pg/mL (0-450) 08/06/24 16:14 Total Protein 7.0 g/dL (6.6-8.7) 08/06/24 16:14 Albumin 4.3 g/dL (3.5-5.2) 08/06/24 16:14 Globulin 2.7 g/dL (1.3-4.6) 08/06/24 16:14 All radiology interpretation(s) finalized by discharge Discharge Plan Discharge Patient Disposition: Home Clinical Impression: Headache Condition: Stable Prescriptions: No Action (DME) wheeled walker See Rx Instructions .Route .MEDSUPPLY Qty: 1 0RF Rx Instructions: As directed amlodipine 10 mg tablet 10 mg PO DAILY Qty: 90 1RF fluticasone propionate 50 mcg/actuation spray,suspension 1 spray INTRANASAL DAILY PRN (Reason: ALLERGIES) Qty: 16 1RF levothyroxine 175 mcg tablet 175 mcg PO DAILY Qty: 90 1RF potassium chloride 10 mEq tablet extended release See Rx Instructions .ROUTE .COMPLEX Qty: 90 3RF Dose Instruction: TAKE 1 TABLET BY MOUTH EVERY DAY Rx Instructions: TAKE 1 TABLET BY MOUTH EVERY DAY sertraline 50 mg tablet 50 mg PO DAILY Qty: 90 3RF Januvia 100 mg tablet 100 mg PO DAILY Qty: 90 1RF losartan 100 mg tablet 100 mg PO DAILY Qty: 90 3RF nitrofurantoin macrocrystal 100 mg capsule 100 mg PO .qpm PRN (Reason: uti) Qty: 1 0RF Rx Instructions: must administer with a meal/food ibuprofen 600 mg tablet 600 mg PO DAILY PRN (Reason: Pain) Qty: 90 1RF gabapentin 300 mg capsule 300 mg PO TID 90 Days Qty: 270 5RF (DME) blood-glucose meter [Accu-Chek Guide Me Glucose Mtr] Misc See Rx Instructions .Route Qty: 1 0RF Rx Instructions: As directed (DME) Accu-Chek Guide test strips Strip See Rx Instructions .Route Qty: 100 3RF Rx Instructions: As directed to check glucose once daily Limanda Ageee 1 tab PO DAILY Discharge Orders: Discharge ED (Routine); Ordered 08/06/24 Ordered By: Adonis Hill Referrals: Karlene Kim MD [Primary Care Provider, Family Practice] Patient Instructions: Pain Management Print Language: Nepali Coding Level of Care Code ED Supervisor Covering And Lining for Chg Fwd Documented by User: Adonis Hill MD 08/06/24 18:45 HPI - Headache 2 General: Chief Complaint: Headache Stated Complaint: strokelike symptoms Time Seen by Provider: 08/06/24 16:19 Related Data Home Medications ?Medication ?Instructions ?Recorded ?Confirmed Limanda Colindres 1 tab PO DAILY 07/02/2308/25 Previous Rx's ?Medication ?Instructions ?Recorded wheeled walker #1 ea 01/03/23 amlodipine 10 mg tablet 10 mg PO DAILY #90 tabs 03/27 fluticasone propionate 50 1 spray intranasal DAILY PRN 06/01/24 mcg/actuation nasal ALLERGIES #16 grams spray,suspension levothyroxine 175 mcg tablet 175 mcg PO DAILY #90 tabs 06/01/24 potassium chloride 10 mEq See Rx Instructions .Route 0 06/01/24 tablet,extended release .COMPLEX #90 tabs sertraline 50 mg tablet 50 mg PO DAILY anxiety #90 t abs 06/01/24 sitagliptin phosphate 100 mg 100 mg PO DAILY #90 tabs 06/01/24 tablet (Januvia) gabapentin 300 mg capsule 300 mg PO TID 90 days #270 c aps 06/10/24 ibuprofen 600 mg tablet 600 mg PO DAILY PRN Pain #90 tabs 07/20/24 losartan 100 mg tablet 100 mg PO DAILY #90 tabs nitrofurantoin macrocrystal 100 mg 100 mg PO .qpm PRN uti #1 cap 07/20/24 capsule blood sugar diagnostic (Accu-Chek #100 ea 07/27/24 Guide test strips) blood-glucose meter (Accu-Chek #1 ea 07/27/24 Guide Me Glucose Meter) Allergies Allergy/AdvReac Type Severity Reaction Status Date / Time adhesive tape Allergy ADR-Itching Verified 08/06/24 15:56 codeine Allergy ADR-Nausea Verified 08/06/24 15:56 PFSH ED 2 PFSH: Medical History Hypertension Generalized anxiety disorder sertraline beneficial per her report NAFLD (nonalcoholic fatty liver disease) on CT 2023 Hypercholesterolemia not on statin; won't start even though has diabetes b/c she has progressive dementia Controlled type 2 diabetes mellitus, without long-term current use of insulin PCP managing now Degenerative disc disease, lumbar takes cyclobenzaprene 5mg at night only if needed and ibuprofen only if needed Diabetic neuropathy takes gabapentin only at night and reports it helps Hypothyroidism Vertigo Obesity Recurrent UTI has seen DR. Stevens urologist in past; uses macrobid prn Dementia seeing neuro DR. Blanchard; has had work up; failed namenda/aricept Urolithiasis Left ureteral calculus Cystitis cystica Surgical History Hx of elbow surgery left History of laser assisted in situ keratomileusis History of lithotripsy History of neck surgery History of hysterectomy with BSO; done for bleeding; no cancer History of cholecystectomy History of appendectomy History of back surgery Family History Other Adopted Social History Smoking and tobacco/nicotine status: never used tobacco/nicotine Alcohol intake: never Substance/Drug Use: never Adopted: Yes Caregiver/support person: No Lives independently: No Household members: spouse Marital status: Number of children: 3 Number of grandchildren: 8 Highest education level completed: High School Graduate Current occupational status: retired 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 Patient Dors is all the symptoms she had previously of this is resolved she does endorse having a 2-week history of this progressively intermittently due to this patient does fall out of the window for any being in stroke activation for any additional management will continue to follow This patient was signed out to my colleague Dr. Hill at 1800 currently waiting on lab work imaging to result patient was provided to single dose hydralazine for her hypertension. Patient's symptoms have thus resolved will continue to follow I received signout from Dr. Gonzalez at 6 PM. Patient is here with a headache. She states that she gets these headaches all the time. States that when they occur she gets numbness of her left side and some speech issues. She states she has been dealing with this for a long time and her doctor thinks it is from her mild dementia. Patient states she is much better at this time. We were awaiting test results. Her troponin is normal x 2. Her CT head shows no acute abnormality. The patient states she is asymptomatic at this time would like to go home. Will discharge with precautions to return for worsening or changing symptoms. Lab Data 08/06/24 16:14 08/06/24 16:14 Radiology Impressions Chest X-Ray 08/06/24 16:52 IMPRESSION: 1. No acute portable findings. 2. Hypoaeration is felt to account for trace blunting of the left costophrenic angle. Head CT 08/06/24 16:52 IMPRESSION: 1. No acute intracranial head CT findings identified. 2. Moderate atrophy/involutional changes of aging with mild components of chronic small-vessel disease. Laboratory Results WBC 11.24 10^3/uL (3.29-11.43) 08/06/24 16:14 RBC 4.92 10^6/uL (3.85-5.65) 08/06/24 16:14 Hgb 14.70 g/dL (11.27-16.99) 08/06/24 16:14 Hct 45.0 % (36-47) 08/06/24 16:14 MCV 91.5 fl (85-98) 08/06/24 16:14 MCH 29.9 pg (27-33) 08/06/24 16:14 MCHC 32.7 g/dL (30-55) 08/06/24 16:14 RDW 13.8 % (12.1-15.1) 08/06/24 16:14 Plt Count 294 10^3/cmm (157-399) 08/06/24 16:14 MPV 10.6 fL (7.4-10.4) H 08/06/24 16:14 Neut % (Auto) 66.8 % 08/06/24 16:14 Lymph % (Auto) 19.9 % 08/06/24 16:14 Wilkes % (Auto) 5.5 % 08/06/24 16:14 Eos % (Auto) 6.7 % 08/06/24 16:14 Baso % (Auto) 0.8 % 08/06/24 16:14 Neut # (Auto) 7.51 10^3/uL (1.8-7.7) 08/06/24 16:14 Lymph # (Auto) 2.2 10^3/uL (0.8-4.8) 08/06/24 16:14 Wilkes # (Auto) 0.6 10^3/uL (0.2-0.9) 08/06/24 16:14 Eos # (Auto) 0.8 10^3/uL (0.0-0.8) 08/06/24 16:14 Baso # (Auto) 0.1 10^3/uL (0.0-0.1) 08/06/24 16:14 Nucleated RBC % (auto) 0 % 08/06/24 16:14 Nucleated RBCs # 0.0 /100WBC 08/06/24 16:14 Sodium 143 mmol/L (136-145) 08/06/24 16:14 Potassium 3.9 mmol/L (3.5-5.1) 08/06/24 16:14 Chloride 102 mmol/L (98-107) 08/06/24 16:14 Carbon Dioxide 25 mmol/L (22-29) 08/06/24 16:14 Anion Gap 19.9 (5-19) H 08/06/24 16:14 BUN 15 mg/dL (8-23) 08/06/24 16:14 Creatinine 0.7 mg/dL (0.5-0.9) 08/06/24 16:14 GFR Calculation Not Reportable 08/06/24 16:14 Glucose 185 mg/dL (65-115) H 08/06/24 16:14 Calculated Osmolality 302 mOsm/kg (285-295) H 08/06/24 16:14 Calcium 9.7 mg/dL (8.5-10.5) 08/06/24 16:14 Total Bilirubin 0.3 mg/dL (0.15-1.2) 08/06/24 16:14 AST 13 U/L (0-32) 08/06/24 16:14 ALT 16 U/L (0-33) 08/06/24 16:14 Alkaline Phosphatase 96 U/L (35-105) 08/06/24 16:14 Troponin T Baseline 7 ng/L (0-10) 08/06/24 16:14 Troponin T 120 Minute 7.58 ng/L (0-10) 08/06/24 17:58 Delta Troponin T 0.58 ABS# (0-10) 08/06/24 17:58 C-Reactive Protein 9.7 mg/L (0.0-4.9) H 08/06/24 16:14 NT-Pro-B Natriuret Pep 81 pg/mL (0-450) 08/06/24 16:14 Total Protein 7.0 g/dL (6.6-8.7) 08/06/24 16:14 Albumin 4.3 g/dL (3.5-5.2) 08/06/24 16:14 Globulin 2.7 g/dL (1.3-4.6) 08/06/24 16:14 Discharge Plan Discharge Patient Disposition: Home Clinical Impression: Headache Condition: Stable Prescriptions: No Action (DME) wheeled walker See Rx Instructions .Route .MEDSUPPLY Qty: 1 0RF Rx Instructions: As directed amlodipine 10 mg tablet 10 mg PO DAILY Qty: 90 1RF fluticasone propionate 50 mcg/actuation spray,suspension 1 spray INTRANASAL DAILY PRN (Reason: ALLERGIES) Qty: 16 1RF levothyroxine 175 mcg tablet 175 mcg PO DAILY Qty: 90 1RF potassium chloride 10 mEq tablet extended release See Rx Instructions .ROUTE .COMPLEX Qty: 90 3RF Dose Instruction: TAKE 1 TABLET BY MOUTH EVERY DAY Rx Instructions: TAKE 1 TABLET BY MOUTH EVERY DAY sertraline 50 mg tablet 50 mg PO DAILY Qty: 90 3RF Januvia 100 mg tablet 100 mg PO DAILY Qty: 90 1RF losartan 100 mg tablet 100 mg PO DAILY Qty: 90 3RF nitrofurantoin macrocrystal 100 mg capsule 100 mg PO .qpm PRN (Reason: uti) Qty: 1 0RF Rx Instructions: must administer with a meal/food ibuprofen 600 mg tablet 600 mg PO DAILY PRN (Reason: Pain) Qty: 90 1RF gabapentin 300 mg capsule 300 mg PO TID 90 Days Qty: 270 5RF (DME) blood-glucose meter [Accu-Chek Guide Me Glucose Mtr] Misc See Rx Instructions .Route Qty: 1 0RF Rx Instructions: As directed (DME) Accu-Chek Guide test strips Strip See Rx Instructions .Route Qty: 100 3RF Rx Instructions: As directed to check glucose once daily Lions Jens 1 tab PO DAILY Discharge Orders: Discharge ED (Routine); Ordered 08/06/24 Ordered By: Adonis Hill Referrals: Karlene Kim MD [Primary Care Provider, Family Practice] Patient Instructions: Pain Management Print Language: Nepali Coding Level of Care Code ED Supervisor Covering And Lining for Inna Christian
[2024-08-06 17:20] LABS: Troponin(5th) Baseline 7 ng/L (0-10)
[2024-08-06 17:29] LABS: Alanine Aminotransferase 16 U/L (0-33); Albumin Level 4.3 g/dL (3.5-5.2); Alkaline Phosphatase 96 U/L (35-105); Anion Gap 19.9 (5-19); Aspartate Amino Transferase 13 U/L (0-32); Blood Urea Nitrogen 15 mg/dL (8-23); C Reactive Protein 9.7 mg/L (0.0-4.9); Calcium 9.7 mg/dL (8.5-10.5); Carbon Dioxide 25 mmol/L (22-29); Chloride 102 mmol/L (98-107); Creatinine Clr Calc Pharmacy 72.2109; Globulin 2.7 g/dL (1.3-4.6); Glucose 185 mg/dL (65-115); NT Pro B Type Natriuretic Pept 81 pg/mL (0-450); Osmolality Calculated 302 mOsm/kg (285-295); Potassium 3.9 mmol/L (3.5-5.1); Sodium 143 mmol/L (136-145); Total Bilirubin 0.3 mg/dL (0.15-1.2)
[2024-08-06 18:22] LABS: Troponin 5 2HR 7.58 ng/L (0-10); Troponin 5 2HR Delta 0.58 ABS# (0-10)
== END 2024-08-06 18:53 | disposition home or self-care (01) ==
PROVIDERS: Emergency Medicine; Emergency Provider Emergency Medicine; PCP Family Medicine
DX: R51.9 Headache, unspecified (principal); I10 Essential (primary) hypertension; E11.40 Type 2 diabetes mellitus with diabetic neuropathy, unspecified
CPT/HCPCS: 36415; 70450; 71045; 80053; 83880; 84484; 85025; 86140; 96365; 99285; J0131; J7040

== ENCOUNTER 2024-08-08 09:30 | Emergency (ER) | payer MEDICARE, OTHER, SELFPAY ==
[2024-08-08 09:34] VITALS: BP 125/84; PULSE 70; TEMP 36.5; O2SAT 97
--- NOTE | 2024-08-08 09:43 | XRR_ITS ---
PROCEDURE INFORMATION: Exam: XR Chest Exam date and time: 08/08/2024 9:58 AM Age: 78 years old Clinical indication: Dyspnea; Additional info: SAAB TECHNIQUE: Imaging protocol: Radiologic exam of the chest. Views: 1 view. COMPARISON: CR (CHEST, ) 08/06/2024 5:17 PM FINDINGS: Lungs: Low lung volumes. Minimal streaky bibasilar atelectasis. No consolidation. Pleural spaces: Unremarkable. No pleural effusion. No pneumothorax. Heart/Mediastinum: Stable cardiomediastinal silhouette. Bones/joints: Cervical spine fusion hardware noted. Mild S-shaped curvature of the spine and multilevel degenerative changes seen. Organs: Cholecystectomy clips project over the right upper quadrant. XR/XR chest 1V portable [id number] IMPRESSION: No acute findings.
--- NOTE | 2024-08-08 09:43 | CTR_ITS ---
PROCEDURE INFORMATION: Exam: CT Head Without Contrast Exam date and time: 08/08/2024 10:01 AM Age: 78 years old Clinical indication: Pain; Weakness, extremity; Headache; Additional info: SAAB, left sided weakness TECHNIQUE: Imaging protocol: Computed tomography of the head without contrast. Radiation optimization: All CT scans at this facility use at least one of these dose optimization techniques: automated exposure control; mA and/or kV adjustment per patient size (includes targeted exams where dose is matched to clinical indication); or iterative reconstruction. COMPARISON: CT head wo con* [id number] 08/06/2024 5:27 PM RADIATION DOSE METRICS: Total DLP (mGy-cm): 1022.68 FINDINGS: Brain: No hemorrhage, mass effect or midline shift. No acute, major vascular distribution infarction identified. There are foci of decreased attenuation in the periventricular and subcortical white matter, likely representing chronic small vessel ischemic changes. Mild cerebral volume loss is present. No intra-axial or extra-axial fluid collection seen. Cerebral ventricles: No ventriculomegaly. Paranasal sinuses: Visualized sinuses are unremarkable. No fluid levels. Mastoid air cells: Visualized mastoid air cells are well aerated. Orbital cavities: Bilateral lens replacement noted. Bones: Unremarkable. No acute fracture. Soft tissues: Unremarkable. CT/CT head wo con* [id number] IMPRESSION: No acute intracranial abnormality.
--- NOTE | 2024-08-08 10:24 | ED_ITS ---
HPI - Neuro Symptoms/Deficit 2 General: Chief Complaint: Neuro Symptoms/Deficit Stated Complaint: L side weakness Time Seen by Provider: 08/08/24 10:24 History of Present Illness: 78-year-old female presents with some le ft-sided numbness and weakness that has been going on and off for a while. She was seen here 2 days ago with similar episodes is been having headaches on and off for about a year. Patient had a negative evaluation CT 2 days ago. Chart review shows that she has been dealing with some to mention what sounds like vascular headaches for a while and maybe become more frequent with some underlying dementia. Associated symptoms: Reports headache(s); Deny chest pain Related Data Home Medications ?Medication ?Instructions ?Recorded ?Confirmed [place] 1 tab PO DAILY 07/02/2308/25 Previous Rx's ?Medication ?Instructions ?Recorded wheeled walker #1 ea 01/03/23 amlodipine 10 mg tablet 10 mg PO DAILY #90 tabs 03/27 fluticasone propionate 50 1 spray intranasal DAILY PRN 06/01/24 mcg/actuation nasal ALLERGIES #16 grams spray,suspension levothyroxine 175 mcg tablet 175 mcg PO DAILY #90 tabs 06/01/24 potassium chloride 10 mEq See Rx Instructions .Route 0 06/01/24 tablet,extended release .COMPLEX #90 tabs sertraline 50 mg tablet 50 mg PO DAILY anxiety #90 t abs 06/01/24 sitagliptin phosphate 100 mg 100 mg PO DAILY #90 tabs 06/01/24 tablet (Januvia) gabapentin 300 mg capsule 300 mg PO TID 90 days #270 c aps 06/10/24 ibuprofen 600 mg tablet 600 mg PO DAILY PRN Pain #90 tabs 07/20/24 losartan 100 mg tablet 100 mg PO DAILY #90 tabs nitrofurantoin macrocrystal 100 mg 100 mg PO .qpm PRN uti #1 cap 07/20/24 capsule blood sugar diagnostic (Accu-Chek #100 ea 07/27/24 Guide test strips) blood-glucose meter (Accu-Chek #1 ea 07/27/24 Guide Me Glucose Meter) Allergies Allergy/AdvReac Type Severity Reaction Status Date / Time adhesive tape Allergy ADR-Itching Verified 08/08/24 09:39 codeine Allergy ADR-Nausea Verified 08/08/24 09:39 Review of Systems 2 Const: Denies: fever(s) or chills Card: Denies: chest pain or palpitations Resp: Denies: dyspnea or productive cough Musc: Denies: neck pain or back pain Neuro: Reports: headache(s) and weakness in extremities Psych: Denies: anxiety or depression PFSH ED 2 PFSH: Medical History Hypertension Generalized anxiety disorder sertraline beneficial per her report NAFLD (nonalcoholic fatty liver disease) on CT 2023 Hypercholesterolemia not on statin; won't start even though has diabetes b/c she has progressive dementia Controlled type 2 diabetes mellitus, without long-term current use of insulin PCP managing now Degenerative disc disease, lumbar takes cyclobenzaprene 5mg at night only if needed and ibuprofen only if needed Diabetic neuropathy takes gabapentin only at night and reports it helps Hypothyroidism Vertigo Obesity Recurrent UTI has seen DR. Stevens urologist in past; uses macrobid prn Dementia seeing neuro DR. Blanchard; has had work up; failed namenda/aricept Urolithiasis Left ureteral calculus Cystitis cystica Surgical History Hx of elbow surgery left History of laser assisted in situ keratomileusis History of lithotripsy History of neck surgery History of hysterectomy with BSO; done for bleeding; no cancer History of cholecystectomy History of appendectomy History of back surgery Family History Other Adopted Social History Smoking and tobacco/nicotine status: never used tobacco/nicotine Alcohol intake: never Substance/Drug Use: never Adopted: Yes Caregiver/support person: No Lives independently: No Household members: spouse Marital status: Number of children: 3 Number of grandchildren: 8 Highest education level completed: High School Graduate Current occupational status: retired 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 [employer] Current gender identity: Female Physical Exam 2 Const: COMMON NORMALS: no acute distress, patient oriented x3 and alert HENMT: COMMON NORMALS: normocephalic, hearing grossly normal bilaterally and moist oral mucous membranes HEAD & SCALP: normocephalic Resp: COMMON NORMALS: normal respiratory effort, No use of accessory muscles and clear to auscultation bilaterally AUSCULTATION: clear to auscultation bilaterally Cardio: COMMON NORMALS: regular rate and regular rhythm RATE: regular rate RHYTHM: regular rhythm Neuro: COMMON NORMALS: patient oriented x3 SENSORIUM/ORIENTATION: Yes alert SPEECH: speech normal MOTOR EXAM: Other motor observations present (Mild weakness left lower extremity 4 out of 5) Psych: COMMON NORMALS: mental status grossly normal, Normal thought process present, cooperative and speech normal SPEECH: Yes normal speech THOUGHT PROCESS: Normal thought process present Skin: COMMON NORMALS: no rashes or lesions noted and no wounds GENERAL SKIN EXAM: no rashes or lesions noted Course 2 Vital Signs: Vital signs: Vital Signs Temperature 97.7 F 08/08/24 09:34 Pulse Rate 69 08/08/24 12:12 Blood Pressure 123/81 08/08/24 12:12 Pulse Oximetry 97 08/08/24 12:12 Oxygen Delivery Me thod Room Air 08/08/24 09:34 MDM - Neuro Symptoms/Deficit Medical Decision Making Patient's labs were reviewed and showed no acute findings. Patient had a negative head CT which will be the second negative head CT in a couple days. Patient's symptoms been ongoing for some time and she would be outside the window for any acute treatment. Discussed with her that her symptoms are likely from a vascular issue that may be small vascular ischemia versus vascular migraines causing her symptoms. She has been evaluated by Dr. Blanchard neurology and is currently following with him. Did recommend she call him tomorrow morning and arrange for follow-up for further outpatient evaluation. Also recommended she takes an aspirin daily. Patient is ready be discharged home. She was stable upon discharge. Lab Data 08/08/24 10:18 08/08/24 10:18 Radiology Impressions Chest X-Ray 08/08/24 09:43 IMPRESSION: No acute findings. Head CT 08/08/24 09:43 IMPRESSION: No acute intracranial abnormality. Laboratory Results WBC 8.54 10^3/uL (3.29-11.43) 08/08/24 10:18 RBC 4.83 10^6/uL (3.85-5.65) 08/08/24 10:18 Hgb 14.20 g/dL (11.27-16.99) 08/08/24 10:18 Hct 45.1 % (36-47) 08/08/24 10:18 MCV 93.4 fl (85-98) 08/08/24 10:18 MCH 29.4 pg (27-33) 08/08/24 10:18 MCHC 31.5 g/dL (30-55) 08/08/24 10:18 RDW 13.8 % (12.1-15.1) 08/08/24 10:18 Plt Count 257 10^3/cmm (157-399) 08/08/24 10:18 MPV 10.3 fL (7.4-10.4) 08/08/24 10:18 Neut % (Auto) 67.8 % 08/08/24 10:18 Lymph % (Auto) 16.4 % 08/08/24 10:18 Cecil % (Auto) 5.9 % 08/08/24 10:18 Eos % (Auto) 8.2 % 08/08/24 10:18 Baso % (Auto) 1.3 % 08/08/24 10:18 Neut # (Auto) 5.80 10^3/uL (1.8-7.7) 08/08/24 10:18 Lymph # (Auto) 1.4 10^3/uL (0.8-4.8) 08/08/24 10:18 Cecil # (Auto) 0.5 10^3/uL (0.2-0.9) 08/08/24 10:18 Eos # (Auto) 0.7 10^3/uL (0.0-0.8) 08/08/24 10:18 Baso # (Auto) 0.1 10^3/uL (0.0-0.1) 08/08/24 10:18 Nucleated RBC % (auto) 0 % 08/08/24 10:18 Nucleated RBCs # 0.0 /100WBC 08/08/24 10:18 PT 13.20 SECONDS (12.1-14.9) 08/08/24 10:18 INR 0.94 (0.8-1.2) 08/08/24 10:18 Sodium 140 mmol/L (136-145) 08/08/24 10:18 Potassium 4.1 mmol/L (3.5-5.1) 08/08/24 10:18 Chloride 103 mmol/L (98-107) 08/08/24 10:18 Carbon Dioxide 27 mmol/L (22-29) 08/08/24 10:18 Anion Gap 14.1 (5-19) 08/08/24 10:18 BUN 17 mg/dL (8-23) 08/08/24 10:18 Creatinine 0.7 mg/dL (0.5-0.9) 08/08/24 10:18 GFR Calculation Not Reportable 08/08/24 10:18 Glucose 111 mg/dL (65-115) 08/08/24 10:18 Calculated Osmolality 292 mOsm/kg (285-295) 08/08/24 10:18 Calcium 8.9 mg/dL (8.5-10.5) 08/08/24 10:18 Total Bilirubin 0.3 mg/dL (0.15-1.2) 08/08/24 10:18 AST 15 U/L (0-32) 08/08/24 10:18 ALT 13 U/L (0-33) 08/08/24 10:18 Alkaline Phosphatase 83 U/L (35-105) 08/08/24 10:18 Total Protein 7.3 g/dL (6.6-8.7) 08/08/24 10:18 Albumin 4.0 g/dL (3.5-5.2) 08/08/24 10:18 Globulin 3.3 g/dL (1.3-4.6) 08/08/24 10:18 All radiology interpretation(s) finalized by discharge Discharge Plan Discharge Patient Disposition: Home Clinical Impression: Headache, Lower extremity weakness Condition: Stable Prescriptions: No Action (DME) wheeled walker See Rx Instructions .Route .MEDSUPPLY Qty: 1 0RF Rx Instructions: As directed amlodipine 10 mg tablet 10 mg PO DAILY Qty: 90 1RF fluticasone propionate 50 mcg/actuation spray,suspension 1 spray INTRANASAL DAILY PRN (Reason: ALLERGIES) Qty: 16 1RF levothyroxine 175 mcg tablet 175 mcg PO DAILY Qty: 90 1RF potassium chloride 10 mEq tablet extended release See Rx Instructions .ROUTE .COMPLEX Qty: 90 3RF Dose Instruction: TAKE 1 TABLET BY MOUTH EVERY DAY Rx Instructions: TAKE 1 TABLET BY MOUTH EVERY DAY sertraline 50 mg tablet 50 mg PO DAILY Qty: 90 3RF Januvia 100 mg tablet 100 mg PO DAILY Qty: 90 1RF losartan 100 mg tablet 100 mg PO DAILY Qty: 90 3RF nitrofurantoin macrocrystal 100 mg capsule 100 mg PO .qpm PRN (Reason: uti) Qty: 1 0RF Rx Instructions: must administer with a meal/food ibuprofen 600 mg tablet 600 mg PO DAILY PRN (Reason: Pain) Qty: 90 1RF gabapentin 300 mg capsule 300 mg PO TID 90 Days Qty: 270 5RF (DME) blood-glucose meter [Accu-Chek Guide Me Glucose Mtr] Misc See Rx Instructions .Route Qty: 1 0RF Rx Instructions: As directed (DME) Accu-Chek Guide test strips Strip See Rx Instructions .Route Qty: 100 3RF Rx Instructions: As directed to check glucose once daily [place] 1 tab PO DAILY Discharge Orders: Discharge ED (Routine); Ordered 08/08/24 Ordered By: Tim Brenner Referrals: Karlene Kim MD [Primary Care Provider, Family Practice] Discharge Diet: Usual diet Discharge Activity: Increase activity as tolerated Patient Instructions: Headache - Migraine (Adult), Multi-Infarct Dementia, General Headache (ED), Opioid Safety, Pain Management Activity Restrictions/Additional Instructions: Please call Dr. Blanchard's office in the morning to arrange for an outpatient follow-up. Please take a daily aspirin until seen by Dr. Blanchard. Return to the ER with any concerns. Print Language: Turkmen Coding Level of Care Code ED Stock Drier Tender for Inna Christian
[2024-08-08 10:37] LABS: Basophils # 0.1 10^3/uL (0.0-0.1); Basophils % 1.3 %; Eosinophils # 0.7 10^3/uL (0.0-0.8); Eosinophils % 8.2 %; Hematocrit 45.1 % (36-47); Lymphocytes # 1.4 10^3/uL (0.8-4.8); Lymphocytes % 16.4 %; Mean Corpuscular HGB Conc 31.5 g/dL (30-55); Mean Corpuscular Hemoglobin 29.4 pg (27-33); Mean Corpuscular Volume 93.4 fl (85-98); Mean Platelet Volume 10.3 fL (7.4-10.4); Monocytes # 0.5 10^3/uL (0.2-0.9); Monocytes % 5.9 %; Neutrophils % 67.8 %; Nucleated Red Blood Cells % 0 %; Platelet Count 257 10^3/cmm (157-399); Red Blood Count 4.83 10^6/uL (3.85-5.65); Red Cell Distribution Width 13.8 % (12.1-15.1); White Blood Count 8.54 10^3/uL (3.29-11.43)
[2024-08-08 10:46] LABS: INR 0.94 (0.8-1.2)
[2024-08-08 10:51] LABS: Alanine Aminotransferase 13 U/L (0-33); Alkaline Phosphatase 83 U/L (35-105); Anion Gap 14.1 (5-19); Aspartate Amino Transferase 15 U/L (0-32); Blood Urea Nitrogen 17 mg/dL (8-23); Calcium 8.9 mg/dL (8.5-10.5); Carbon Dioxide 27 mmol/L (22-29); Chloride 103 mmol/L (98-107); Creatinine Clr Calc Pharmacy 72.2109; Globulin 3.3 g/dL (1.3-4.6); Glucose 111 mg/dL (65-115); Osmolality Calculated 292 mOsm/kg (285-295); Potassium 4.1 mmol/L (3.5-5.1); Sodium 140 mmol/L (136-145); Total Bilirubin 0.3 mg/dL (0.15-1.2); Total Protein 7.3 g/dL (6.6-8.7)
--- NOTE | 2024-08-08 11:41 | ECG_ITS ---
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 Measurements Intervals [place] Rate: 63 P: 26 WV: 166 QRS: -8 QRSD: 91 T: 46 QT: 414 QTc: 427 Interpretive Statements SINUS RHYTHM LOW QRS VOLTAGE IN PRECORDIAL LEADS [QRS DEFLECTION < 1.0 mV IN CHEST LEADS] ANTEROSEPTAL MYOCARDIAL INFARCTION , PROBABLY OLD [40+ ms Q WAVE IN V1-V4] Compared to ECG 07/02/2023 09:43:42 No significant changes Electronically Signed On 08-09-2024 08:59:05 CDT by James Capps M.D. [email or web address]
[2024-08-08 12:12] VITALS: BP 123/81; PULSE 69; O2SAT 97
== END 2024-08-08 12:13 | disposition home or self-care (01) ==
PROVIDERS: Emergency Medicine; Emergency Provider Student in an Organized Health Care Education/Training Program; PCP Family Medicine
DX: R53.1 Weakness (principal); R51.9 Headache, unspecified; I10 Essential (primary) hypertension; E03.9 Hypothyroidism, unspecified; E11.40 Type 2 diabetes mellitus with diabetic neuropathy, unspecified; Z79.899 Other long term (current) drug therapy
CPT/HCPCS: 70450; 71045; 80053; 85025; 85610; 93005; 99285

== ENCOUNTER 2024-08-10 11:33 | Outpatient (CLI) | payer MEDICARE, OTHER, SELFPAY ==
[2024-08-10] MEDS: iohexol 350 mg/mL 500 mL Btl (per mL) IV (12:25)
--- NOTE | 2024-08-10 13:00 | CT_ITS ---
WS: [id number] CT ANGIOGRAM CEREBRAL AND CAROTID ARTERIES HISTORY: I63.9 - Cerebral infarction, unspecified TECHNIQUE: CT angiogram is performed of the carotid and cerebral arteries. During arterial injection imaging is obtained from the skull vertex to the aortic arch in 1.25 mm imaging. Coronal and sagittal reformats are submitted. Additional multi planar reformats of the carotid and cerebral arteries are submitted, MIP imaging also reviewed. NASCET criteria utilized. All CT scans at [facility] use at least one of these dose optimization techniques: automated exposure control; mA and/or kV adjustment per patient size (includes targeted exams where dose is matched to clinical indication); or iterative reconstruction. CONTRAST: Omnipaque 350; 100 mL IV. DLP: 1165.31 mGy.cm COMPARISON: Noncontrast CT head 08/08/[address] head: Moderate atrophy and small vessel disease. Prior lacunar infarct in the RIGHT thalamus. Thalamic infarct appears new since the prior study. Normal ventricles. Small air-fluid level in the sphenoid sinus. Mastoid air cells are clear. Carotid Angiogram: Right carotid: Common carotid artery: Arises normally from the innominate artery. No significant plaque or stenosis. Internal carotid artery: Increasing partially circumferential plaque at the bifurcation. Cervical ICA is tortuous but no high-grade stenosis. Mild narrowing of the mid ICA due to a sharp curve. External carotid artery: Patent. Left carotid: Common carotid artery: Arises from the base of the innominate. Very minimal atherosclerotic plaque. Internal carotid artery: Mild plaque. No high-grade stenosis. Mild narrowing in the mid ICA narrowing sharp curve. External carotid artery: Patent. Right vertebral artery: Patent, codominant. Left vertebral artery: Patent, codominant. Subclavian arteries: Atherosclerotic changes within the subclavian arteries. Focal noncalcified plaque in the proximal LEFT subclavian artery. This plaque is just proximal to the origin of the LEFT vertebral artery. Stenosis less than 50%. Upper thorax: Normal. Thyroid gland: Atrophied minimal thyroid tissue identified. Osseous structures: Prior cervical fusion from C5-C7. Corpectomy cage at C6. CEREBRAL ANGIOGRAM: Intracranial vertebral arteries: Normal with no significant atherosclerosis. Basilar artery: No significant stenosis or occlusion. No aneurysm. Intracranial Internal carotid arteries: No high-grade stenosis. Mild plaque to the cavernous carotid sinuses. No occlusions. No aneurysm. Middle cerebral arteries: Very mild narrowing of the proximal M1 segments but no thrombus identified. No aneurysms. Anterior cerebral arteries and ACOM: Patent. Central lack of flow in the LEFT A1 segment. Similar to the prior examination. This may be a fenestration as it is unchanged since 07/02/2023. Posterior cerebral arteries and PCOM's: Posterior cerebral arteries are patent. Smaller caliber posterior communicating arteries. Dural venous sinuses are normally enhancing. Mastoid air cells: Normal. Paranasal sinuses: Normal. Calvarium: Mild hyperostosis frontalis interna. CT/CT angio headneck* [id number] IMPRESSION: 1. No high-grade cervical carotid artery stenosis. Mild plaque at the bifurcat ions. 2. Patent bilateral vertebral arteries. 3. No occlusions or high-grade stenosis in the [place]. No aneurysm. 4. Atheromatous plaque reidentified in the proximal LEFT subclavian artery has mildly progressed since 07/02/2023. 5. Small remote lacunar infarct in the RIGHT thalamus is new since 08/06/2024.
== END 2024-08-10 11:34 | disposition home or self-care (01) ==
PROVIDERS: PCP Family Medicine; Visit Provider Psychiatry & Neurology Neurology
DX: I63.9 Cerebral infarction, unspecified (principal); I65.23 Occlusion and stenosis of bilateral carotid arteries; I70.8 Atherosclerosis of other arteries; G31.89 Other specified degenerative diseases of nervous system; I67.89 Other cerebrovascular disease; J34.89 Other specified disorders of nose and nasal sinuses; Z98.1 Arthrodesis status; Z98.890 Other specified postprocedural states; R93.0 Abnormal findings on diagnostic imaging of skull and head, not elsewhere classified; M85.2 Hyperostosis of skull
CPT/HCPCS: 70496; 70498

== ENCOUNTER 2024-08-17 11:03 | Outpatient (CLI) | payer MEDICARE, OTHER, SELFPAY ==
[2024-08-17 12:57] LABS: Homocysteine 17.61 umol/l (0-15)
[2024-08-19 20:15] LABS: PTT-LA-Screen 37 sec (< OR = 40)
== END 2024-08-17 11:04 | disposition home or self-care (01) ==
LOC: LAB 11:07
PROVIDERS: PCP Family Medicine; Visit Provider Psychiatry & Neurology Neurology
DX: G45.9 Transient cerebral ischemic attack, unspecified (principal); I63.9 Cerebral infarction, unspecified; I10 Essential (primary) hypertension
CPT/HCPCS: 36415; 83090; 85210; 85300; 85303; 85306; 85613; 85730; 86146

== ENCOUNTER 2024-08-26 09:25 | Oncology outpatient (recurring) (ONCR) | payer MEDICARE, OTHER, SELFPAY ==
[2024-08-26 14:44] LABS: Folate Level > 20.0 ng/mL (4.8-37.3); Vitamin B12 > 2000 pg/mL (232-1245)
== END 2024-08-30 23:59 | disposition home or self-care (01) ==
PROVIDERS: Internal Medicine; Visit Provider Psychiatry & Neurology Neurology
DX: Z53.9 Procedure and treatment not carried out, unspecified reason (principal); R79.89 Other specified abnormal findings of blood chemistry; R03.0 Elevated blood-pressure reading, without diagnosis of hypertension; R41.3 Other amnesia; R51.9 Headache, unspecified; Z86.73 Personal history of transient ischemic attack (TIA), and cerebral infarction without residual deficits
CPT/HCPCS: 36415; 82607; 82746; 99205

== ENCOUNTER → 2024-08-27 09:46 | Outpatient (BNVA) | payer MEDICARE, OTHER, SELFPAY | PROVIDERS: PCP Family Medicine; Visit Provider Internal Medicine | DX: I10 Essential (primary) hypertension (principal); Z86.73 Personal history of transient ischemic attack (TIA), and cerebral infarction without residual deficits; R42 Dizziness and giddiness | CPT/HCPCS: 99204 ==

== ENCOUNTER → 2024-09-15 14:38 | Outpatient (BNVA) | payer MEDICARE, OTHER, SELFPAY | PROVIDERS: PCP Family Medicine; Visit Provider Psychiatry & Neurology Neurology | DX: G31.84 Mild cognitive impairment of uncertain or unknown etiology (principal) | CPT/HCPCS: 36415; 80053; 84439; 84443; 85025; 96116; 99212 ==

== ENCOUNTER → 2024-09-23 10:08 | Outpatient (BNVA) | payer MEDICARE, OTHER, SELFPAY | PROVIDERS: PCP Psychiatry & Neurology Neurology; Visit Provider Internal Medicine | DX: E03.9 Hypothyroidism, unspecified (principal); E11.42 Type 2 diabetes mellitus with diabetic polyneuropathy; E11.21 Type 2 diabetes mellitus with diabetic nephropathy; E11.40 Type 2 diabetes mellitus with diabetic neuropathy, unspecified | CPT/HCPCS: 99214 ==

== ENCOUNTER 2024-09-27 12:30 | Oncology outpatient (recurring) (ONCR) | payer MEDICARE, OTHER, SELFPAY ==
--- NOTE | 2024-09-22 08:00 | MR_ITS ---
WS: [id number] MRI HEAD WITH CONTRAST TECHNIQUE: Sagittal T1, T2 axial, T2 axial FLAIR, axial susceptibility weighted imaging, axial diffusion weighted images, and coronal T2 images were obtained. Pre and post-T1 axial and post T1 coronal images. ADC and FSPGR images. CLINICAL INFORMATION: G45.9 - Transient cerebral ischemic attack, unspecified COMPARISON: CT 08/08/2024 and MRI 04/14/2024 FINDINGS: No evidence of restricted diffusion to suggest acute ischemia. Ventricular system and basal cisterns are patent. Mild small vessel changes with moderate parenchymal volume loss unchanged. A few tiny chronic lacunar infarcts RIGHT cerebellum. Normal vascular flow voids at the skull base. No extra-axial fluid collections. No evidence of mass or mass effect. Paranasal sinuses and mastoid air cells are well aerated. No hemosiderin on susceptibility-weighted images. Normal optic chiasm and pituitary infundibulum. Moderate symmetric atrophy temporal lobes and hippocampal formations. Normal dural venous sinuses. No abnormal intracranial enhancement. No other suspicious findings. MR/MR head wo/w con [id number] IMPRESSION: 1. No evidence of restricted diffusion to suggest acute ischemia. 2. Mild small vessel changes with moderate parenchymal volume loss. 3. A few tiny chronic lacunar infarcts RIGHT cerebellum unchanged from previou s. 4. No abnormal gadolinium enhancement. 5. Moderate symmetric atrophy temporal lobes and hippocampal formations.
[2024-09-22] MEDS: gadobenate dimeglumine 20 mL vial 17 ML IV (08:41)
[2024-09-27] MEDS: diphenhydrAMINE 50 mg/mL SDV 1mL IVP (11:58)
[2024-09-27] MEDS: donanemab-azbt 700 MG in sodium chloride 0.9% 50 ML 180 MG IV (12:13)
[2024-09-27 12:58] VITALS: BP 135/78; PULSE 79; RESP 17; TEMP 36.3; O2SAT 96
== END 2024-09-30 23:59 | disposition home or self-care (01) ==
PROVIDERS: PCP Psychiatry & Neurology Neurology; Visit Provider Psychiatry & Neurology Neurology
DX: Z53.9 Procedure and treatment not carried out, unspecified reason; G31.84 Mild cognitive impairment of uncertain or unknown etiology; G30.9 Alzheimer's disease, unspecified; Z79.899 Other long term (current) drug therapy
CPT/HCPCS: 70553; 96365; 96375; 99212; J0175; J1200; J7050; J9999

== ENCOUNTER → 2024-09-28 09:23 | Outpatient (BNVA) | payer MEDICARE, OTHER, SELFPAY | PROVIDERS: PCP Family Medicine; Visit Provider Surgery | DX: K92.2 Gastrointestinal hemorrhage, unspecified (principal) | CPT/HCPCS: 99204 ==

== ENCOUNTER 2024-10-14 22:53 | Emergency (ER) | payer MEDICARE, OTHER, SELFPAY ==
--- OUTSIDE RECORDS SUMMARY | 2024-06-24 10:00 | XMS_ITS ---
Author Organization [facility] Address [address] [place] [address] Care Team Providers Care Radiologic Tech Name Role Phone Tali Luke APRN Primary Care Provider LITZY Arndt [phone] REASON FOR VISIT 1 yr w/ ua/kub Encounters Encounter Location Date Provider Diagnosis [facility] [address] [place] [address] 06/24/2024 LITZY BAIG Plan Of Treatment No Information Progress Notes * Clementina SAXENA ADOB:[birth year] (78 yo F)Acc No.[id number]:06/24/2024 Progress Notes Patient: Chinedu SWEENEYly Bianca Provider: Travis Baig APRN :1945 A ge:78 Y S ex:Female Date:06/24/2024 Address:[address] [place] [id number] Pcp:Tali Luke APRN Subjective: * Chief Complaints: * 1 . 1 yr w/ ua/kub. * Medical History: Objective: * Vitals: Assessment: Plan: * Treatment: * Billing Information: * Visit Code: * Procedure Codes: * Electronic signature of MICHELLE BAIG APRN on 10/14/2024 at 11:00 PM CDT Sign off status: Pending * Provider: Travis Baig APRN Date: 06/24/2024 Generated for Jocelin guillen/Jose J/Irene on: 0 10/14/2024 11:00 PM CDT
--- OUTSIDE RECORDS SUMMARY | 2024-10-14 23:00 | XMS_ITS | Patient Health Record ---
Author Organization [facility] Address [address] [place] [address] Care Team Providers Care Patient Account Analyst Name Role Phone Tali Luke APRN Primary Care Provider LITZY Arndt Unavailable [phone] Allergies Allergen (clinical drug ingredient) Drug/Non Drug Allergy documented on EMR Reaction Allergy Type Onset Date Status codeine Codeine Unknown Drug Allergy Active Reason For Referral No Information Medications Medication SIG (Take, Route, Frequency, Duration) Notes Start Date End Date Status Donepezil HCl Active Lisinopril Active Gabapentin Active Social History Tobacco Use: Social History Observation Description Date Details (start date - stop date) Never Smoker NA - NA Tobacco Control (Standard) Question Answer Notes Tobacco use: Nonsmoker Problems Problem Type SNOMED Code ICD Code Onset Dates Problem Status W/U Status Risk Notes Problem Dysuria (49972962) Dysuria (R30.0) Active confirmed Problem Recurrent nephrolithiasis (N20.0) Active confirmed Plan Of Treatment Pending Test Test Name Order Date X ray : Kidneys, Ureters and Bladder ([facility]) 06/23/2023 Insurance Providers Payer Name Payer Address Payer Phone Subscriber Number Group Number Insured Name Patient Relationship to Insured Coverage Start Date Coverage End Date [place] Medicare [address] [place] [id number] [phone] [id number] Clementina Saxena Self - patient is the insured [place] [address] [id number] [phone] [id number] Clementina Saxena Self - patient is the insured Medical (General) History Medical History History ICD Code HTN Diabeties Hypthyroidism dementia Surgical History Surgery Date(Month/Year) hysterectomy oophorectomy D&C
--- NOTE | 2024-10-14 23:07 | ECG_ITS ---
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
--- NOTE | 2024-10-14 23:07 | CTR_ITS ---
PROCEDURE INFORMATION: Exam: CT Head Without Contrast Exam date and time: 10/14/2024 11:22 PM Age: 78 years old Clinical indication: Injury or trauma; Fall; Concussion/head injury; Additional info: Fall, headache, vomiting TECHNIQUE: Imaging protocol: Computed tomography of the head without contrast. Radiation optimization: All CT scans at this facility use at least one of these dose optimization techniques: automated exposure control; mA and/or kV adjustment per patient size (includes targeted exams where dose is matched to clinical indication); or iterative reconstruction. COMPARISON: MR head wo/w con [id number] 09/22/2024 8:12 AM RADIATION DOSE METRICS: Total DLP (mGy-cm): 1156.01 FINDINGS: Brain: Mild cerebral atrophy and ischemic leukoencephalopathy. Cerebral ventricles: No ventriculomegaly. Paranasal sinuses: Visualized sinuses are unremarkable. No fluid levels. Mastoid air cells: Visualized mastoid air cells are well aerated. Bones: Unremarkable. No acute fracture. Soft tissues: Unremarkable. Other findings: Severe calcified intracranial atherosclerotic vessel disease. CT/CT head wo con* [id number] IMPRESSION: No acute intracranial abnormality.
--- NOTE | 2024-10-14 23:07 | XRR_ITS ---
PROCEDURE INFORMATION: Exam: XR Chest Exam date and time: 10/14/2024 11:10 PM Age: 78 years old Clinical indication: Injury or trauma; Fall; Other: Syncope; Additional info: Chest pain TECHNIQUE: Imaging protocol: Radiologic exam of the chest. Views: 1 view. COMPARISON: CR XR chest 1V portable [id number] 08/08/2024 9:58 AM FINDINGS: Lungs: Unremarkable. No consolidation. Pleural spaces: Unremarkable. No pleural effusion. No pneumothorax. Heart/Mediastinum: There are findings of cardiomegaly Bones/joints: Patient is status post cervical spine fusion XR/XR chest 1V portable [id number] IMPRESSION: Cardiomegaly
[2024-10-14 23:09] VITALS: BP 163/67; PULSE 73; RESP 20; TEMP 36.9; O2SAT 100; BMI 40.4
[2024-10-14] MEDS: ondansetron 2 mg/ML SDV 2 mL 4 MG IVP (23:19)
[2024-10-14] MEDS: acetaminophen 1,000 MG/100 ML PIGGYBACK 400 MG IV (23:20)
[2024-10-14 23:22] LABS: Hematocrit 39.8 % (36-47); Hemoglobin 13.00 g/dL (11.27-16.99); Mean Corpuscular HGB Conc 32.7 g/dL (30-55); Mean Corpuscular Hemoglobin 29.0 pg (27-33); Mean Corpuscular Volume 88.6 fl (85-98); Nucleated Red Blood Cells % 0 %; Platelet Count 246 10^3/cmm (157-399); Red Blood Count 4.49 10^6/uL (3.85-5.65); White Blood Count 10.39 10^3/uL (3.29-11.43)
[2024-10-14 23:48] LABS: Troponin(5th) Baseline 7 ng/L (0-10)
[2024-10-14 23:57] LABS: Alanine Aminotransferase 15 U/L (0-33); Albumin Level 4.0 g/dL (3.5-5.2); Alkaline Phosphatase 82 U/L (35-105); Anion Gap 21.5 (5-19); Aspartate Amino Transferase 15 U/L (0-32); Blood Urea Nitrogen 16 mg/dL (8-23); Calcium 8.6 mg/dL (8.5-10.5); Carbon Dioxide 18 mmol/L (22-29); Chloride 104 mmol/L (98-107); Creatinine Clr Calc Pharmacy 83.0007; Globulin 2.6 g/dL (1.3-4.6); Glucose 270 mg/dL (65-115); NT Pro B Type Natriuretic Pept 170 pg/mL (0-450); Osmolality Calculated 301 mOsm/kg (285-295); Potassium 3.5 mmol/L (3.5-5.1); Sodium 140 mmol/L (136-145); Total Protein 6.6 g/dL (6.6-8.7)
[2024-10-15] VITALS: BP 139/64; PULSE 67; RESP 20; O2SAT 98
[2024-10-15 00:41] LABS: Glucose Urine UA 1+ (Normal); Nitrate Urine Negative (Negative); Specific Gravity, Urine 1.012 (1.005-1.030)
[2024-10-15 01:06] LABS: UA Manual Slide Review YES
[2024-10-15 01:29] LABS: Troponin 5 2HR 7.67 ng/L (0-10); Troponin 5 2HR Delta 0.67 ABS# (0-10)
[2024-10-15 01:30] VITALS: BP 134/77; PULSE 67; RESP 21; O2SAT 98
[2024-10-15 03:00] VITALS: BP 161/65; PULSE 78; RESP 19; O2SAT 97
[2024-10-15 04:15] VITALS: BP 145/67; PULSE 73; RESP 18; O2SAT 96
--- NOTE | 2024-10-15 06:40 | W.ED.HA ---
HPI - Headache General: Chief Complaint: Headache Stated Complaint: cp Time Seen by Provider: 10/14/24 22:56 History of Present Illness: Patient is a mildly distressed 78-year-old female seen for fall, nausea, vomiting, headache. She states the fall occurred over a day ago and since that time she has had increased nausea and vomiting and headache. She is uncertain whether she has ever had an intracranial bleed. She is uncertain whether she takes blood thinners. She is mildly in distress and answering most questions with just one-word answers. She denies visual disturbance, chest pain, dysuria, frequency, diarrhea associated with the nausea and vomiting. Related Data Home Medications ?Medication ?Instructions ?Recorded ?Confirmed Limanda Jens 1 tab PO DAILY 07/02/23 09/28/24 gabapentin 300 mg capsule 300 mg PO DIRECTED 08/27/24 09/28/24 Previous Rx's ?Medication ?Instructions ?Recorded wheeled walker #1 ea 01/03/23 amlodipine 10 mg tablet 10 mg PO DAILY #90 tabs 06/01/24 fluticasone propionate 50 1 spray intranasal DAILY PRN 06/01/24 mcg/actuation nasal ALLERGIES #16 grams spray,suspension levothyroxine 175 mcg tablet 175 mcg PO DAILY #90 tabs 06/01/24 potassium chloride 10 mEq See Rx Instructions .Route 06/01/24 tablet,extended release .COMPLEX #90 tabs sertraline 50 mg tablet 50 mg PO DAILY anxiety #90 tabs 06/01/24 sitagliptin phosphate 100 mg 100 mg PO DAILY #90 tabs 06/01/24 tablet (Januvia) losartan 100 mg tablet 100 mg PO DAILY #90 tabs 07/20/24 nitrofurantoin macrocrystal 100 mg 100 mg PO .qpm PRN uti #1 cap 07/20/24 capsule blood sugar diagnostic (Accu-Chek #100 ea 07/27/24 Guide test strips) blood-glucose meter (Accu-Chek #1 ea 07/27/24 Guide Me Glucose Meter) rosuvastatin 40 mg tablet 40 mg PO .QPM #30 tabs 09/15/24 ondansetron 4 mg disintegrating 4 mg PO Q8H PRN nausea and 10/15/24 tablet vomiting 5 days #20 tabs Allergies Allergy/AdvReac Type Severity Reaction Status Date / Time adhesive tape Allergy ADR-Itching Verified 09/28/24 09:25 codeine Allergy ADR-Nausea Verified 09/28/24 09:25 PFSH ED PFSH: Medical History (Updated 10/15/24 @ 03:58 by Wilton San MD) Alzheimer dementia with anxiety Hypertension Generalized anxiety disorder sertraline beneficial per her report NAFLD (nonalcoholic fatty liver disease) on CT 2023 Hypercholesterolemia not on statin; won't start even though has diabetes b/c she has progressive dementia Controlled type 2 diabetes mellitus, without long-term current use of insulin PCP managing now Degenerative disc disease, lumbar takes cyclobenzaprene 5mg at night only if needed and ibuprofen only if needed Diabetic neuropathy takes gabapentin only at night and reports it helps Hypothyroidism Vertigo Obesity Recurrent UTI has seen DR. Stevens urologist in past; uses macrobid prn Dementia seeing neuro DR. Blanchard; has had work up; failed namenda/aricept Urolithiasis Left ureteral calculus Cystitis cystica Surgical History (Updated 09/28/24 @ 09:32 by CAROLYNN Fernando) Hx of elbow surgery left History of laser assisted in situ keratomileusis History of lithotripsy History of neck surgery History of hysterectomy with BSO; done for bleeding; no cancer History of cholecystectomy History of appendectomy History of back surgery Family History Other Adopted Social History Smoking and tobacco/nicotine status: never used tobacco/nicotine Alcohol intake: never Substance/Drug Use: never Adopted: Yes Caregiver/support person: No Lives independently: No Household members: spouse Marital status: Number of children: 3 Number of grandchildren: 8 Highest education level completed: High School Graduate Current occupational status: retired 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 [employer] Current gender identity: Female Physical Exam Const: COMMON NORMALS: no acute distress and alert HENMT: COMMON NORMALS: normocephalic and atraumatic HEAD & SCALP: normocephalic and atraumatic Eye: COMMON NORMALS: Equal, round and reactive pupils present, EOMs intact bilaterally and no scleral icterus PUPIL: Yes Equal, round and reactive pupils present Resp: COMMON NORMALS: normal respiratory effort and No retractions Cardio: COMMON NORMALS: regular rate, regular rhythm and No murmurs present (Cardio) RATE: regular rate RHYTHM: regular rhythm GI: COMMON NORMALS: Normal to inspection, nondistended, normoactive bowel sounds present, Soft to palpation and non-tender PALPATION: Yes Soft to palpation Neuro: COMMON NORMALS: moves all extremities, no focal motor deficits and no sensory deficits noted SENSORIUM/ORIENTATION: Yes alert Psych: OTHER: Somewhat anxious, no SI or HI. No obvious delusions. Skin: COMMON NORMALS: no rashes or lesions noted GENERAL SKIN EXAM: no rashes or lesions noted Course Vital Signs: Vital signs: Vital Signs Temperature 98.4 F 10/14/24 23:09 Pulse Rate 73 10/15/24 04:15 Respiratory Rate 18 10/15/24 04:15 Blood Pressure 145/67 10/15/24 04:15 Pulse Oximetry 96 10/15/24 04:15 Oxygen Delivery Me thod Room Air 10/15/24 04:15 MDM - Headache Medical Decision Making In summary, patient is a generally well-appearing 78-year-old female who arrived somewhat anxious with complaints of headache and ongoing nausea and vomiting. Fortunately, CT brain shows nothing acute. EKG is similarly unremarkable. After receiving a small dose of Valium, he is now playfully conversant with no distress or anxiety. I do believe that stress and anxiety played a component in her symptoms today. CT brain shows nothing acute. There is no evidence of infection or other traumatic injury requiring further workup. She does not have labs consistent with metabolic encephalopathy or other metabolic derangement. She will be discharged home in stable and improved condition. Lab Data 10/14/24 23:10 10/14/24 23:10 Radiology Impressions Chest X-Ray 10/14/24 23:07 IMPRESSION: Cardiomegaly Head CT 10/14/24 23:07 IMPRESSION: No acute intracranial abnormality. Laboratory Results WBC 10.39 10^3/uL (3.29-11.43) 10/14/24 23:10 RBC 4.49 10^6/uL (3.85-5.65) 10/14/24 23:10 Hgb 13.00 g/dL (11.27-16.99) 10/14/24 23:10 Hct 39.8 % (36-47) 10/14/24 23:10 MCV 88.6 fl (85-98) 10/14/24 23:10 MCH 29.0 pg (27-33) 10/14/24 23:10 MCHC 32.7 g/dL (30-55) 10/14/24 23:10 RDW 13.2 % (12.1-15.1) 10/14/24 23:10 Plt Count 246 10^3/cmm (157-399) 10/14/24 23:10 MPV 10.5 fL (7.4-10.4) H 10/14/24 23:10 Neut % (Auto) 78.8 % 10/14/24 23:10 Lymph % (Auto) 12.2 % 10/14/24 23:10 Crosby % (Auto) 5.0 % 10/14/24 23:10 Eos % (Auto) 2.8 % 10/14/24 23:10 Baso % (Auto) 0.6 % 10/14/24 23:10 Neut # (Auto) 8.19 10^3/uL (1.8-7.7) H 10/14/24 23:10 Lymph # (Auto) 1.3 10^3/uL (0.8-4.8) 10/14/24 23:10 Crosby # (Auto) 0.5 10^3/uL (0.2-0.9) 10/14/24 23:10 Eos # (Auto) 0.3 10^3/uL (0.0-0.8) 10/14/24 23:10 Baso # (Auto) 0.1 10^3/uL (0.0-0.1) 10/14/24 23:10 Nucleated RBC % (auto) 0 % 10/14/24 23:10 Nucleated RBCs # 0.0 /100WBC 10/14/24 23:10 Sodium 140 mmol/L (136-145) 10/14/24 23:10 Potassium 3.5 mmol/L (3.5-5.1) 10/14/24 23:10 Chloride 104 mmol/L (98-107) 10/14/24 23:10 Carbon Dioxide 18 mmol/L (22-29) L 10/14/24 23:10 Anion Gap 21.5 (5-19) H 10/14/24 23:10 BUN 16 mg/dL (8-23) 10/14/24 23:10 Creatinine 0.5 mg/dL (0.5-0.9) 10/14/24 23:10 GFR Calculation Not Reportable 10/14/24 23:10 Glucose 270 mg/dL (65-115) H 10/14/24 23:10 Calculated Osmolality 301 mOsm/kg (285-295) H 10/14/24 23:10 Calcium 8.6 mg/dL (8.5-10.5) 10/14/24 23:10 Total Bilirubin 0.7 mg/dL (0.15-1.2) 10/14/24 23:10 AST 15 U/L (0-32) 10/14/24 23:10 ALT 15 U/L (0-33) 10/14/24 23:10 Alkaline Phosphatase 82 U/L (35-105) 10/14/24 23:10 Creatine Kinase 109 U/L (26-192) 10/14/24 23:10 Troponin T Baseline 7 ng/L (0-10) 10/14/24 23:10 Troponin T 120 Minute 7.67 ng/L (0-10) 10/15/24 01:00 Delta Troponin T 0.67 ABS# (0-10) 10/15/24 01:00 NT-Pro-B Natriuret Pep 170 pg/mL (0-450) 10/14/24 23:10 Total Protein 6.6 g/dL (6.6-8.7) 10/14/24 23:10 Albumin 4.0 g/dL (3.5-5.2) 10/14/24 23:10 Globulin 2.6 g/dL (1.3-4.6) 10/14/24 23:10 Urine Color Yellow (Yellow) 10/15/24 00:12 Urine Appearance Cloudy (CLEAR) A 10/15/24 00:12 Urine pH 8.0 (5-7) A 10/15/24 00:12 Ur Specific [place] 1.012 (1.005-1.030) 10/15/24 00:12 Urine Protein Negative (Negative) 10/15/24 00:12 Urine Glucose (UA) 1+ (Normal) H 10/15/24 00:12 Urine Ketones 2+ (Negative) H 10/15/24 00:12 Urine Blood Negative (Negative) 10/15/24 00:12 Urine Nitrate Negative (Negative) 10/15/24 00:12 Urine Bilirubin Negative (Negative) 10/15/24 00:12 Urine Urobilinogen 0.2 mg/dL (Negative) 10/15/24 00:12 Ur Leukocyte Esterase Negative (Negative) 10/15/24 00:12 Urine RBC 0-4 /hpf (0-2) H 10/15/24 00:12 Urine WBC None /hpf (0-5) 10/15/24 00:12 Ur Squamous Epith Cells 0-4 /hpf (0-5) H 10/15/24 00:12 Amorphous Sediment 1+ /hpf 10/15/24 00:12 Urine Bacteria 2+ /hpf (NONE) H 10/15/24 00:12 Urine Mucus 1+ /hpf 10/15/24 00:12 All radiology interpretation(s) finalized by discharge EKG Data EKG 1: Interpretation: Time?2306?sinus rhythm, rate of 78, no ST segment elevation or depression, no T wave versions, QTc = 471 Discharge Plan Discharge Patient Disposition: Home Clinical Impression: Fall, Nausea & vomiting, Headache Condition: Stable Prescriptions: New ondansetron 4 mg tablet,disintegrating 4 mg PO Q8H PRN (Reason: nausea and vomiting) 5 Days Qty: 20 0RF No Action (DME) wheeljaxson walker See Rx Instructions .Route .MEDSUPPLY Qty: 1 0RF Rx Instructions: As directed amlodipine 10 mg tablet 10 mg PO DAILY Qty: 90 1RF fluticasone propionate 50 mcg/actuation spray,suspension 1 spray INTRANASAL DAILY PRN (Reason: ALLERGIES) Qty: 16 1RF levothyroxine 175 mcg tablet 175 mcg PO DAILY Qty: 90 1RF potassium chloride 10 mEq tablet extended release See Rx Instructions .ROUTE .COMPLEX Qty: 90 3RF Dose Instruction: TAKE 1 TABLET BY MOUTH EVERY DAY Rx Instructions: TAKE 1 TABLET BY MOUTH EVERY DAY sertraline 50 mg tablet 50 mg PO DAILY Qty: 90 3RF Januvia 100 mg tablet 100 mg PO DAILY Qty: 90 1RF losartan 100 mg tablet 100 mg PO DAILY Qty: 90 3RF nitrofurantoin macrocrystal 100 mg capsule 100 mg PO .qpm PRN (Reason: uti) Qty: 1 0RF Rx Instructions: must administer with a meal/food gabapentin 300 mg capsule 300 mg PO DIRECTED Rx Instructions: 2 caps in the AM and 1 cap in the PM rosuvastatin 40 mg tablet 40 mg PO .QPM Qty: 30 11RF (DME) blood-glucose meter [Accu-Chek Guide Me Glucose Mtr] Misc See Rx Instructions .Route Qty: 1 0RF Rx Instructions: As directed (DME) Accu-Chek Guide test strips Strip See Rx Instructions .Route Qty: 100 3RF Rx Instructions: As directed to check glucose once daily Lions Jens 1 tab PO DAILY Discharge Orders: Discharge ED (Routine); Ordered 10/15/24 Ordered By: Wilton San Referrals: Karlene Kim MD [Primary Care Provider, Family Practice] Discharge Diet: Advance as tolerated Discharge Activity: Increase activity as tolerated Patient Instructions: Dizziness (ED), Fall Prevention (ED), Patient Portal & Martha Instructions Activity Restrictions/Additional Instructions: The tests underwent in the emergency department tonight are reassuring with no evidence of stroke, intracranial bleed, heart attack, or major infection requiring hospitalization or further workup. Please take the prescribed Zofran tablets for ongoing nausea and vomiting if necessary. Print Language: Eritrean Coding Level of Care Code ED Hose Cementer for Inna Christian
== END 2024-10-15 04:47 | disposition home or self-care (01) ==
PROVIDERS: Emergency Provider Student in an Organized Health Care Education/Training Program; PCP Family Medicine
DX: R11.2 Nausea with vomiting, unspecified (principal); R51.9 Headache, unspecified; W19.XXXA Unspecified fall, initial encounter; E11.9 Type 2 diabetes mellitus without complications; I10 Essential (primary) hypertension
CPT/HCPCS: 36415; 70450; 71045; 80053; 81001; 82550; 83880; 84484; 85025; 93005; 96365; 96366; 96375; 99285; J0131; J2405; J7030; J9999

== ENCOUNTER 2024-10-25 08:00 | Oncology outpatient (recurring) (ONCR) | payer MEDICARE, OTHER, SELFPAY ==
--- NOTE | 2024-10-18 11:00 | MR_ITS ---
WS: [id number] MRI HEAD WITHOUT CONTRAST TECHNIQUE: Sagittal T1, T2 axial, T2 axial FLAIR, axial and coronal T1 images, axial susceptibility weighted imaging, axial diffusion weighted images, and coronal T2 images were obtained. CLINICAL INFORMATION: G30.9 - Alzheimer's disease, unspecified COMPARISON: CT 10/14/2024 and MRI 09/22/2024 FINDINGS: No evidence of restricted diffusion to suggest acute ischemia. Ventricular system and basal cisterns are patent. Mild small vessel changes with moderate parenchymal volume loss unchanged. A few tiny chronic lacunar infarcts RIGHT cerebellum are unchanged. Normal vascular flow voids at the skull base. No extra- axial fluid collections. No evidence of mass or mass effect. Paranasal sinuses and mastoid air cells are well aerated. No hemosiderin on susceptibility-weighted images. Normal optic chiasm and pituitary infundibulum. Tiny incidental lipoma along the inferior colliculus Moderate symmetric atrophy temporal lobes and hippocampal formations. No new intracranial findings. MR/MR head wo con* [id number] IMPRESSION: 1. Mild small vessel changes with moderate parenchymal volume loss appears sta ble. 2. A few tiny chronic lacunar infarcts RIGHT cerebellum unchanged. 3. Moderate symmetric atrophy temporal lobes and hippocampal formations. 4. No hemosiderin on the susceptibility weighted images. 5. Sphenoid sinusitis with air-fluid level. Trace fluid in the LEFT maxillary sinus.
[2024-10-25 08:34] VITALS: BP 126/78; PULSE 77; TEMP 36.8; O2SAT 98
[2024-10-25] MEDS: diphenhydrAMINE 50 mg/mL SDV 1mL IVP (09:01)
[2024-10-25] MEDS: donanemab-azbt 700 MG in sodium chloride 0.9% 50 ML 180 MG IV (10:09)
[2024-10-25 11:05] VITALS: BP 153/70; PULSE 71; RESP 17; TEMP 36.2; O2SAT 96
== END 2024-10-31 23:59 | disposition home or self-care (01) ==
PROVIDERS: PCP Family Medicine; Visit Provider Psychiatry & Neurology Neurology
DX: G30.9 Alzheimer's disease, unspecified; F02.84 Dementia in other diseases classified elsewhere, unspecified severity, with anxiety; Z79.899 Other long term (current) drug therapy; Z53.9 Procedure and treatment not carried out, unspecified reason
CPT/HCPCS: 70551; 96375; 96413; 99215; J0175; J1200; J7050; J9999